=== PATIENT | male | born 1945 | race Caucasian/White ===

== ENCOUNTER 2016-10-13 03:18 | Emergency (ER) | payer OTHER, MEDICARE ==
[~2016-10-13] VITALS: Ht 167.6 cm; Wt 88.0 kg
[~2016-10-13 03:18] MED LIST: ALBUAER3 INH; APIX5TAB PO; CARD180C5 PO; FERR325T PO; FOLI1TAB4 PO; HYDR25TA5 PO; IPRA17I INH; LISI-519 PO; METF-382 PO; METH2.5T PO; METO25TA3 PO; OXYGENTANK NAS.CANULA; PRAV40TA2 PO; PRED20 PO; SYMB80AE INH; TERA1CAP3 PO; ZITH250T PO
[2016-10-13 03:20] VITALS: BP 117/54; PULSE 62; RESP 16; TEMP 98.3; O2SAT 96
[2016-10-13 04:26] VITALS: O2SAT 99
[2016-10-13] MEDS ORDERED: SODIUM CHLORIDE 0.9% FLUSH 5 ML FLUSH IVF PRN (04:30)
[2016-10-13 04:39] LABS: AUTOMATED NEUTROPHIL # 5.4 TH/MM3 (1.8-7.7); BASOPHIL % 0.3 % (0.0-2.0); EOSINOPHIL # 0.6 TH/MM3 (0-0.4); HEMATOCRIT 33.3 % (39.0-51.0); HEMO FLAGS DIFF FINAL; LYMPH % 22.5 % (9.0-44.0); MEAN CELL VOLUME 85.2 FL (80.0-100.0); MEAN CORPUSCULAR HEMOGLOBIN 27.5 PG (27.0-34.0); MEAN CORPUSCULAR HGB CONC 32.3 % (32.0-36.0); MONO % 9.5 % (0.0-8.0); NEUT % 60.7 % (16.0-70.0); PLATELET COUNT 321 TH/MM3 (150-450); RED BLOOD COUNT 3.91 MIL/MM3 (4.50-5.90); RED CELL DISTRIBUTION WIDTH 17.6 % (11.6-17.2); WHITE BLOOD COUNT 8.9 TH/MM3 (4.0-11.0)
--- NOTE | 2016-10-13 04:48 | PD ---
HPI Chief Complaint: Cardiac Complaint Time Seen by Provider: 04:04 Travel History International Travel<30 days: No Contact w/Intl Traveler<30days: No Traveled to known affect area: No History of Present Illness HPI This 71-year-old man presents to the emergency department after he was awoken from sleep with palpitations. He since it is a little bit of chest tightness and shortness of breath that is since resolved. His a history of recent diagnosis of A. fib in August of this year, and started diltiazem just a couple days ago. When they started diltiazem the also weaned down his metoprolol. He otherwise has been feeling generally well. He gets his care through the [facility], and has appointment with a marketing content coordinator in [place] no known coming up. No complaints now. He otherwise had been feeling generally well and healthy. History Past Medical History Narrative Medical A. fib COPD Rheumatoid arthritis Diabetes Anemia BPH Social History Alcohol Use: No Tobacco Use: Yes (1ppd (STATES QUIT TWO MONTHS AGO)) Allergies-Medications (Allergen,Severity, Reaction): Coded Allergies: No Known Allergies (Verified , 10/13/16) Reported Meds & Prescriptions Reported Meds & Active Scripts Active Atrovent HFA 12.9 GM Inh (Ipratropium [place]) 17 Mcg/Act Aer 2 Puff INH QID Prednisone 20 Mg Tab 40 Mg PO DAILY Take 2 pills daily for 3 Days, then 1 pill daily for 3 days, then 1/2 pill a day for 3 Days. Cardizem CD 24 HR (Diltiazem CD 24 HR) 180 Mg Caper 360 Mg PO DAILY Eliquis (Apixaban) 5 Mg Tab 5 Mg PO BID Proair Hfa 8.5 GM Inh (Albuterol Sulfate) 90 Mcg/Act Aer 2 Puff INH Q4HR PRN 108 mcg/actuation Reported Metoprolol Tartrate 50 Mg Tab 50 Mg PO BID Metformin (Metformin HCl) 1,000 Mg Tab 1,000 Mg PO BIDPC With meals Meloxicam 15 Mg Tab 15 Mg PO DAILY Lisinopril 10 Mg Tab 10 Mg PO DAILY Folate (Folic Acid) 1 Mg Tab 1 Mg PO DAILY Symbicort Inh (Budesonide/Formoterol Fumarate) Unknown Strength Aero 2 Puff INH Q12HR Terazosin (Terazosin HCl) 1 Mg Cap 1 Mg PO HS Pravastatin 40 Mg Tab 40 Mg PO DAILY Methotrexate 2.5 Mg Tab 2.5 Mg PO Q7D Hydrochlorothiazide 25 Mg Tab 25 Mg PO DAILY Ferrous Sulfate 325 Mg Tab 325 Mg PO DAILY Review of Systems Except as stated in HPI: all other systems reviewed are Neg Physical Exam Narrative GENERAL: Well-appearing 71-year-old man, no acute distress. SKIN: Warm and dry. HEAD: Atraumatic. Normocephalic. EYES: Pupils equal and round. No scleral icterus. No injection or drainage. ENT: No nasal bleeding or discharge. Mucous membranes pink and moist. NECK: Trachea midline. No JVD. CARDIOVASCULAR: Regular rate and rhythm. No murmur appreciated. RESPIRATORY: No accessory muscle use. Clear to auscultation. Breath sounds equal bilaterally. GASTROINTESTINAL: Abdomen soft, non-tender, nondistended. Hepatic and splenic margins not palpable. MUSCULOSKELETAL: No obvious deformities. No clubbing. No cyanosis. No edema. NEUROLOGICAL: Awake and alert. No obvious cranial nerve deficits. Motor grossly within normal limits. Normal speech. PSYCHIATRIC: Appropriate mood and affect; insight and judgment normal. Data Data Last Documented VS Vital Signs Date Time Temp Pulse Resp B/P Pulse Ox O2 Delivery O2 Flow Rate FiO2 10/13/16 04:26 99 Room Air 10/13/16 03:20 98.3 62 16 117/54 Orders Electrocardiogram (10/13/16 04:19) Complete Blood Count With Diff (10/13/16 04:19) Comprehensive Metabolic Panel (10/13/16 04:19) Magnesium (Mg) (10/13/16 04:19) Troponin I (10/13/16 04:19) Chest, Single Ap (10/13/16 04:19) Ecg Monitoring (10/13/16 04:19) Iv Access Insert/Monitor (10/13/16 04:19) Oximetry (10/13/16 04:19) Oxygen Administration (10/13/16 04:19) Sodium Chloride 0.9% Flush (Ns Flush) (10/13/16 04:30) Labs Laboratory Tests Test 10/13/16 04:32 White Blood Count 8.9 TH/MM3 Red Blood Count 3.91 MIL/MM3 Hemoglobin 10.8 GM/DL Hematocrit 33.3 % Mean Corpuscular Volume 85.2 FL Mean Corpuscular Hemoglobin 27.5 PG Mean Corpuscular Hemoglobin 32.3 % Concent Red Cell Distribution Width 17.6 % Platelet Count 321 TH/MM3 Mean Platelet Volume 8.3 FL Neutrophils (%) (Auto) 60.7 % Lymphocytes (%) (Auto) 22.5 % Monocytes (%) (Auto) 9.5 % Eosinophils (%) (Auto) 7.0 % Basophils (%) (Auto) 0.3 % Neutrophils # (Auto) 5.4 TH/MM3 Lymphocytes # (Auto) 2.0 TH/MM3 Monocytes # (Auto) 0.8 TH/MM3 Eosinophils # (Auto) 0.6 TH/MM3 Basophils # (Auto) 0.0 TH/MM3 CBC Comment DIFF FINAL Differential Comment Sodium Level 140 MEQ/L Potassium Level 4.6 MEQ/L Chloride Level 108 MEQ/L Carbon Dioxide Level 24.4 MEQ/L Anion Gap 8 MEQ/L Blood Urea Nitrogen 25 MG/DL Creatinine 1.52 MG/DL Estimat Glomerular Filtration 46 ML/MIN Rate Random Glucose 161 MG/DL Calcium Level 8.8 MG/DL Magnesium Level 1.7 MG/DL Total Bilirubin 0.3 MG/DL Aspartate Amino Transf 9 U/L (AST/SGOT) Alanine Aminotransferase 16 U/L (ALT/SGPT) Alkaline Phosphatase 77 U/L Troponin I LESS THAN 0.02 NG/ML Total Protein 7.2 GM/DL Albumin 3.2 GM/DL [facility] Medical Decision Making Medical Screen Exam Complete: Yes Emergency Medical Condition: Yes Interpretation(s) My review of EKG: A. fib, slow ventricular response of 49, normal axis, normal intervals, no acute ischemia. LABS: CBC remarkable for mild anemia. CMP remarkable for mildly elevated BUN/creatinine Troponin negative Differential Diagnosis A. fib with slow ventricular response, palpitations, arrhythmia, ACS, other Narrative Course Medical decision making Is a 71-year-old man who presents to the emergency department with palpitations. His a history of paroxysmal atrial tachycardia as well as A. fib RVR. He isn't slow ventricular response on the 40s. He recently started diltiazem and weaned down on his metoprolol. He may need to wean his metoprolol off. [facility] No complaints now. Diagnosis Primary Impression: A-fib Qualified Code: I48.1 - Persistent atrial fibrillation Additional Impression: Palpitations Additional Instructions: Hold metoprolol until follow up with your primary physician. Return to the emergency department for any worsening chest pain, trouble breathing, or any other new or worsening symptoms. Disposition: 01 DISCHARGE HOME Condition: Stable Terry Garcias MD Oct 13, 2016 04:48
[2016-10-13 04:53] LABS: ALT (GPT) 16 U/L (12-78); ANION GAP 8 MEQ/L (5-15); AST (GOT) 9 U/L (15-37); BICARBONATE 24.4 MEQ/L (21.0-32.0); BLOOD UREA NITROGEN 25 MG/DL (7-18); CHLORIDE 108 MEQ/L (98-107); GLOMERULAR FILTRATION RATE 46 ML/MIN (>89); MAGNESIUM 1.7 MG/DL (1.5-2.5); POTASSIUM 4.6 MEQ/L (3.5-5.1); SODIUM (NA) 140 MEQ/L (136-145)
--- NOTE | 2016-10-13 04:54 | RADRPT ---
EXAM DATE/TIME: 10/13/2016 04:40 [facility] COMPARISON: CHEST SINGLE AP, August 21, 2016, 13:36. INDICATIONS : Palpitations. MEDICAL HISTORY : Arthritis. Chronic obstructive pulmonary disease. SURGICAL HISTORY : None. ENCOUNTER: Initial ACUITY: 1 day PAIN SCORE: 0/10 LOCATION: Bilateral chest FINDINGS: No infiltrate, effusion or pneumothorax demonstrated. Mild cardiomegaly similar to before. Thoracic a lissy is tortuous and atherosclerotic. CONCLUSION: No acute cardiopulmonary disease demonstrated. Robbie Camarillo MD on October 13, 2016 at 4:52 Board Certified Radiologist. This report was verified electronically.
[2016-10-13 04:57] LABS: ALKALINE PHOSPHATASE 77 U/L (45-117); TOTAL BILIRUBIN ADULT 0.3 MG/DL (0.2-1.0)
[2016-10-13] MEDS ORDERED: METO50TA PO (05:02)
[2016-10-13] MEDS ORDERED: LISI10TA3 PO (05:02)
[2016-10-13] MEDS ORDERED: METF1000 PO (05:02)
[2016-10-13] MEDS ORDERED: MELO-1 PO (05:02)
--- NOTE | 2016-10-13 16:30 | EKG ---
Date Performed: 10/13/2016 Time Performed: 03:40:20 PTAGE: 71 years EKG: NARROW COMPLEX BRADYCARDIA ABNORMAL RHYTHM ECG Latter half of EKG does appear to show some organized atrial activity. The baseline is very flat, making atrial fibrillation less likely, particu larly given the prior atrial fibrillation has electrically active baseline. This is possibly a marked sinus bradycardia with ectopy and junctional escapes.This may be part of a Sick Sinus Syndome. Clini johann correlation is required. I would also recommend an EKG PREVIOUS TRACING : 08/22/2016 00.49 DOCTOR: Jonathan Alfaro Interpretating Date/Time 10/13/2016 16:29:20
== END 2016-10-13 06:29 | disposition home or self-care (01) ==
LOC: NEPE 03:18
DX: I48.91 Unspecified atrial fibrillation (principal); R00.2 Palpitations; J44.9 Chronic obstructive pulmonary disease, unspecified; M06.9 Rheumatoid arthritis, unspecified; E11.9 Type 2 diabetes mellitus without complications; R00.1 Bradycardia, unspecified
CPT/HCPCS: 71010; 80053; 83735; 84484; 85025; 93005

== ENCOUNTER 2016-10-28 00:59 | Emergency (ER) | payer OTHER, MEDICARE ==
[~2016-10-28] VITALS: Ht 167.6 cm; Wt 89.0 kg
[~2016-10-28 00:59] MED LIST changes: -LISI-519 PO; +LISI10TA3 PO; +MELO-1 PO; -METF-382 PO; +METF1000 PO; -METO25TA3 PO; +METO50TA PO; -OXYGENTANK NAS.CANULA; -ZITH250T PO
[2016-10-28 01:05] VITALS: BP 148/65; PULSE 106; RESP 20; TEMP 97.5; O2SAT 96
[2016-10-28] MEDS ORDERED: ACETAMINOPHEN/HYDROcodone 325 MG/5 MG TAB PO ONE (01:30)
[2016-10-28] MEDS ORDERED: SODIUM CHLORIDE 0.9% FLUSH 5 ML FLUSH IVF PRN (01:30)
[2016-10-28 01:31] VITALS: BP 132/60; PULSE 90; RESP 18; O2SAT 95
[2016-10-28 01:48] LABS: AUTOMATED NEUTROPHIL # 6.8 TH/MM3 (1.8-7.7); BASOPHIL % 0.3 % (0.0-2.0); EOSINOPHIL # 0.4 TH/MM3 (0-0.4); EOSINOPHIL % 4.1 % (0.0-4.0); HEMATOCRIT 32.2 % (39.0-51.0); HEMO FLAGS DIFF FINAL; LYMPH % 15.9 % (9.0-44.0); LYMPHOCYTE # 1.5 TH/MM3 (1.0-4.8); MEAN CELL VOLUME 81.9 FL (80.0-100.0); MONO % 7.3 % (0.0-8.0); NEUT % 72.4 % (16.0-70.0); PLATELET COUNT 370 TH/MM3 (150-450); RED BLOOD COUNT 3.93 MIL/MM3 (4.50-5.90); RED CELL DISTRIBUTION WIDTH 16.7 % (11.6-17.2); WHITE BLOOD COUNT 9.4 TH/MM3 (4.0-11.0)
--- NOTE | 2016-10-28 01:55 | RADRPT ---
EXAM DATE/TIME: 10/28/2016 01:36 [facility] COMPARISON: CHEST SINGLE AP, October 13, 2016, 4:40. INDICATIONS : Chest Pain MEDICAL HISTORY : Afib SURGICAL HISTORY : None. ENCOUNTER: Initial ACUITY: 1 day PAIN SCORE: 0/10 LOCATION: Bilateral chest FINDINGS: Cardiomegaly. Aortic calcification. No consolidation or effusion. CONCLUSION: No acute disease. Claudio Gaston MD on October 28, 2016 at 1:53 Board Certified Radiologist. This report was verified electronically.
[2016-10-28 01:57] LABS: ALT (GPT) 15 U/L (12-78); ANION GAP 7 MEQ/L (5-15); AST (GOT) 8 U/L (15-37); BICARBONATE 24.7 MEQ/L (21.0-32.0); BLOOD UREA NITROGEN 22 MG/DL (7-18); CHLORIDE 106 MEQ/L (98-107); GLOMERULAR FILTRATION RATE 65 ML/MIN (>89); POTASSIUM 4.4 MEQ/L (3.5-5.1); SODIUM (NA) 138 MEQ/L (136-145)
[2016-10-28 02:00] LABS: ALKALINE PHOSPHATASE 85 U/L (45-117); TOTAL BILIRUBIN ADULT 0.2 MG/DL (0.2-1.0)
[2016-10-28] MEDS ORDERED: PRED20 PO (02:27)
[2016-10-28] MEDS ORDERED: HYDR-3533 PO (02:27)
--- NOTE | 2016-10-28 02:29 | PD ---
HPI Chief Complaint: Edema Time Seen by Provider: 01:14 Travel History International Travel<30 days: No Contact w/Intl Traveler<30days: No Traveled to known affect area: No History of Present Illness HPI Patient is 71 years old. He has complaint of arthritis in the hands and knees. It prevents him from sleeping. He reports swelling of the hands and knees as well. Swelling has been present for 2 days. Pain severity is 7/10. It's constant. No recent illness or change in medicine. He takes methotrexate and meloxicam for rheumatoid arthritis. He's had no shortness of breath or dyspnea. appetite and urination normal. PFSH Past Medical History Hx Anticoagulant Therapy: Yes (PRADAXA) Arthritis: Yes Asthma: Yes Cardiovascular Problems: Yes (AFIB) Congestive Heart Failure: Yes COPD: Yes Cerebrovascular Accident: Yes (TIAx1) Coronary Artery Disease: No Diabetes: Yes (METFORMIN) Patient Takes Glucophage: Yes Genitourinary: Yes ( enlarged prostate) Hypertension: Yes Respiratory: Yes (COPD) Immunizations Current: Yes Tetanus Vaccination: < 5 Years Influenza Vaccination: Yes Past Surgical History Eye Surgery: Yes (BILAT CATARACT/LENS IMPLANT SURGERY) Other Surgery: Yes (CATARACTS AND LENS IMPLANTS) Social History Alcohol Use: No Tobacco Use: Yes (1ppd (STATES QUIT TWO MONTHS AGO)) Substance Use: No Allergies-Medications (Allergen,Severity, Reaction): Coded Allergies: No Known Allergies (Verified , 10/28/16) Reported Meds & Prescriptions Reported Meds & Active Scripts Active Cardizem CD 24 HR (Diltiazem CD 24 HR) 180 Mg Caper 360 Mg PO DAILY Proair Hfa 8.5 GM Inh (Albuterol Sulfate) 90 Mcg/Act Aer 2 Puff INH Q4HR PRN 108 mcg/actuation Reported Metformin (Metformin HCl) 1,000 Mg Tab 1,000 Mg PO BIDPC With meals Meloxicam 15 Mg Tab 15 Mg PO DAILY Folate (Folic Acid) 1 Mg Tab 1 Mg PO DAILY Symbicort Inh (Budesonide/Formoterol Fumarate) Unknown Strength Aero 2 Puff INH Q12HR Terazosin (Terazosin HCl) 1 Mg Cap 1 Mg PO HS Pravastatin 40 Mg Tab 40 Mg PO DAILY Methotrexate 2.5 Mg Tab 2.5 Mg PO Q7D Ferrous Sulfate 325 Mg Tab 325 Mg PO DAILY Review of Systems Except as stated in HPI: all other systems reviewed are Neg Physical Exam Narrative GENERAL: 71-year-old male pleasant well-nourished well-developed distress SKIN: Warm and dry. HEAD: Atraumatic. Normocephalic. EYES: Pupils equal and round. No scleral icterus. No injection or drainage. ENT: No nasal bleeding or discharge. Mucous membranes pink and moist. NECK: Trachea midline. No JVD. CARDIOVASCULAR: Regular rate and rhythm. No murmur appreciated. RESPIRATORY: No accessory muscle use. Clear to auscultation. Breath sounds equal bilaterally. GASTROINTESTINAL: Abdomen soft, non-tender, nondistended. Hepatic and splenic margins not palpable. MUSCULOSKELETAL: No obvious deformities. No clubbing. Pitting edema about the hands and wrists as well as the bilateral lower extremities from the knees distally. Edema is 2+. No asymmetry erythema or induration to suggest PE. NEUROLOGICAL: Awake and alert. No obvious cranial nerve deficits. Motor grossly within normal limits. Normal speech. PSYCHIATRIC: Appropriate mood and affect; insight and judgment normal. Data Data Last Documented VS Vital Signs Date Time Temp Pulse Resp B/P Pulse Ox O2 Delivery O2 Flow Rate FiO2 10/28/16 01:31 90 18 132/60 95 Room Air 10/28/16 01:05 97.5 Orders Complete Blood Count With Diff (10/28/16 01:30) Comprehensive Metabolic Panel (10/28/16 01:30) Chest, Single Ap (10/28/16 01:30) Ecg Monitoring (10/28/16 01:30) Iv Access Insert/Monitor (10/28/16 01:30) Oximetry (10/28/16 01:30) Oxygen Administration (10/28/16 01:30) Sodium Chloride 0.9% Flush (Ns Flush) (10/28/16 01:30) Acetamin-Hydrocod 325-5 Mg ([place] 5-325 (10/28/16 01:30) B-Type Natriuretic Peptide (10/28/16 01:30) Labs Laboratory Tests Test 10/28/16 01:30 White Blood Count 9.4 TH/MM3 Red Blood Count 3.93 MIL/MM3 Hemoglobin 10.6 GM/DL Hematocrit 32.2 % Mean Corpuscular Volume 81.9 FL Mean Corpuscular Hemoglobin 27.0 PG Mean Corpuscular Hemoglobin 33.0 % Concent Red Cell Distribution Width 16.7 % Platelet Count 370 TH/MM3 Mean Platelet Volume 7.5 FL Neutrophils (%) (Auto) 72.4 % Lymphocytes (%) (Auto) 15.9 % Monocytes (%) (Auto) 7.3 % Eosinophils (%) (Auto) 4.1 % Basophils (%) (Auto) 0.3 % Neutrophils # (Auto) 6.8 TH/MM3 Lymphocytes # (Auto) 1.5 TH/MM3 Monocytes # (Auto) 0.7 TH/MM3 Eosinophils # (Auto) 0.4 TH/MM3 Basophils # (Auto) 0.0 TH/MM3 CBC Comment DIFF FINAL Differential Comment Sodium Level 138 MEQ/L Potassium Level 4.4 MEQ/L Chloride Level 106 MEQ/L Carbon Dioxide Level 24.7 MEQ/L Anion Gap 7 MEQ/L Blood Urea Nitrogen 22 MG/DL Creatinine 1.11 MG/DL Estimat Glomerular Filtration 65 ML/MIN Rate Random Glucose 163 MG/DL Calcium Level 9.0 MG/DL Total Bilirubin 0.2 MG/DL Aspartate Amino Transf 8 U/L (AST/SGOT) Alanine Aminotransferase 15 U/L (ALT/SGPT) Alkaline Phosphatase 85 U/L B-Type Natriuretic Peptide 52 PG/ML Total Protein 7.4 GM/DL Albumin 3.2 GM/DL MDM Medical Decision Making Medical Screen Exam Complete: Yes Emergency Medical Condition: Yes Medical Record Reviewed: Yes Differential Diagnosis Rheumatoid flare, hypoalbuminemia, electrolyte imbalance, renal failure, anemia Narrative Course CBC & BMP Diagram 10/28/16 01:30 BNP 52 Albumin 3.2 Patient's presentation is considered to be mostly keeping with a flare of rheumatoid arthritis. We'll provide a dose of Solu-Medrol here and control his pain here. Lortab and prednisone prescription for home. Follow-up with primary care provider. Return precautions discussed. Diagnosis Primary Impression: Rheumatoid arthritis flare Referrals: [facility] [place] 2 days Additional Instructions: You have a choice when it comes to health care, and we are glad that you chose [facility]. Hopefully, we have met your expectations on today's visit. You are welcome to return to [facility] at any time, as we are committed to meeting the health care needs of our community. Med/Other Pt SpecificInfo: Prescription(s) given Scripts Hydrocodone-Acetaminophen (Lortab)5-325 Mg Tab1-2 Tab PO Q6H PRN (PAIN SCALE 6 TO 10) #20 TAB Ref 0 Prov:Richie Díaz MD 10/28/16 Prednisone 20 Mg Tab40 Mg PO DAILY 4 Days Ref 0 Take 40 mg (2 tablets) daily for 5 days Prov:Richie Díaz MD 10/28/16 Disposition: 01 DISCHARGE HOME Condition: Stable Richie Díaz MD Oct 28, 2016 02:29
[2016-10-28] MEDS ORDERED: methylPREDNISolone SOD SUCC 125 MG/2 ML VIAL IV PUSH ONE (02:30)
== END 2016-10-28 02:47 | disposition home or self-care (01) ==
LOC: NEPC 00:59
DX: M06.89 Other specified rheumatoid arthritis, multiple sites (principal); E11.9 Type 2 diabetes mellitus without complications; I10 Essential (primary) hypertension; Z79.01 Long term (current) use of anticoagulants; Z79.84 Long term (current) use of oral hypoglycemic drugs; Z87.39 Personal history of other diseases of the musculoskeletal system and connective tissue; Z87.09 Personal history of other diseases of the respiratory system; Z86.79 Personal history of other diseases of the circulatory system; Z86.73 Personal history of transient ischemic attack (TIA), and cerebral infarction without residual deficits; Z87.438 Personal history of other diseases of male genital organs; Z87.891 Personal history of nicotine dependence
CPT/HCPCS: 71010; 80053; 83880; 85025; 96374; 99283; J2930

== ENCOUNTER 2016-11-05 19:18 | Emergency (ER) | payer OTHER, MEDICARE ==
[~2016-11-05] VITALS: Ht 167.6 cm; Wt 87.7 kg
[~2016-11-05 19:18] MED LIST changes: -APIX5TAB PO; +HYDR-3533 PO; -HYDR25TA5 PO; -IPRA17I INH; -LISI10TA3 PO; -METO50TA PO
[2016-11-05 19:21] VITALS: BP 177/79; PULSE 82; RESP 16; TEMP 97.8; O2SAT 97
[2016-11-05] MEDS ORDERED: ACETAMINOPHEN 325 MG TAB PO ONE (23:00)
--- NOTE | 2016-11-05 23:06 | PD ---
HPI Chief Complaint: Headache Time Seen by Provider: 22:40 Travel History International Travel<30 days: No Contact w/Intl Traveler<30days: No Traveled to known affect area: No History of Present Illness HPI The patient is a 71 year old male who presents to the [facility] emergency department with a history of bitemporal headache that began approximately 30-45 minutes after taking his Pradaxa at 1 PM today. He reports that the headache gradually reached its peak. He reports that he has not taken anything for the pain, however his headache has begun to improve since arriving in the emergency department. He denies having any neck pain. He denies having any nosebleeds, blood in his stool or black or tarry stools, or hematuria. The patient reports that he was concerned that there may be a problem and his hand related to the Pradaxa because he was told that if he had any new symptoms on the medication he should be evaluated acutely either by his primary care physician or in the emergency department. The patient is followed by the [facility] for his primary care. The patient denies any recent fevers, cough, congestion, chest pain, shortness of breath, abdominal pain, vomiting, diarrhea, urinary symptoms, or neurologic symptoms. PFSH Past Medical History Narrative Medical The patient's past medical history is significant for COPD, rheumatoid arthritis , hypertension, diabetes mellitus, anemia, benign prostatic hypertrophy, atrial fibrillation Hx Anticoagulant Therapy: Yes (PRADAXA) Arthritis: Yes Asthma: Yes Cardiovascular Problems: Yes Congestive Heart Failure: Yes COPD: Yes Cerebrovascular Accident: Yes (TIAx1) Coronary Artery Disease: No Diabetes: Yes Genitourinary: Yes ( enlarged prostate) Hypertension: Yes Respiratory: Yes (COPD) Immunizations Current: Yes Past Surgical History Narrative Surgical The patient's past surgical history is significant for bilateral cataract surgery. Eye Surgery: Yes (BILAT CATARACT/LENS IMPLANT SURGERY) Other Surgery: Yes (CATARACTS AND LENS IMPLANTS) Social History Alcohol Use: No Tobacco Use: Yes (1ppd (STATES QUIT TWO MONTHS AGO)) Substance Use: No Allergies-Medications (Allergen,Severity, Reaction): Coded Allergies: No Known Allergies (Verified , 11/05/16) Reported Meds & Prescriptions Reported Meds & Active Scripts Active Lisinopril 10 Mg Tab 10 Mg PO DAILY Lortab (Hydrocodone-Acetaminophen) 5-325 Mg Tab 1-2 Tab PO Q6H PRN Prednisone 20 Mg Tab 40 Mg PO DAILY 4 Days Take 40 mg (2 tablets) daily for 5 days Cardizem CD 24 HR (Diltiazem CD 24 HR) 180 Mg Caper 360 Mg PO DAILY Proair Hfa 8.5 GM Inh (Albuterol Sulfate) 90 Mcg/Act Aer 2 Puff INH Q4HR PRN 108 mcg/actuation Reported Metformin (Metformin HCl) 1,000 Mg Tab 1,000 Mg PO BIDPC With meals Meloxicam 15 Mg Tab 15 Mg PO DAILY Folate (Folic Acid) 1 Mg Tab 1 Mg PO DAILY Symbicort Inh (Budesonide/Formoterol Fumarate) Unknown Strength Aero 2 Puff INH Q12HR Terazosin (Terazosin HCl) 1 Mg Cap 1 Mg PO HS Pravastatin 40 Mg Tab 40 Mg PO DAILY Methotrexate 2.5 Mg Tab 2.5 Mg PO Q7D Ferrous Sulfate 325 Mg Tab 325 Mg PO DAILY Review of Systems Except as stated in HPI: all other systems reviewed are Neg General / Constitutional: No: Fever Eyes: No: Visual changes HENT: Positive: Headaches, No: Rhinorrhea, Congestion, Neck Stiffness, Neck Pain Cardiovascular: No: Chest Pain or Discomfort, Dyspnea on exertion Respiratory: No: Cough, Shortness of Breath Gastrointestinal: No: Nausea, Vomiting, Diarrhea, Abdominal Pain, Hematemesis, Hematochezia, Changes in Bowel Habits, Loss of Appetite Genitourinary: No: Dysuria Musculoskeletal: No: Pain Skin: No Rash Neurologic: Positive: Headache, No: Weakness, Focal Abnormalities, Coordination Problem, Change in Mentation, Slurred Speech, Sensory Disturbance Psychiatric: No: Depression Endocrine: No: Polydipsia Hematologic/Lymphatic: No: Easy Bruising Physical Exam Narrative General: The patient is a well-developed well-nourished male in no acute distress. Head and Neck exam: Head is normocephalic atraumatic. Eyes: EOMI, pupils are equal round and reactive to light. Nose: Midline septum with pink mucous membranes Mouth: Dentition unremarkable. Moist mucus membranes. Posterior oropharynx is not erythematous. No tonsillar hypertrophy. Uvula midline. Airway patent. Neck: No palpable lymphadenopathy. No nuchal rigidity. No thyromegaly. Cardiovascular: Regular rate and rhythm without murmurs, gallops, or rubs. Lungs: Clear to auscultation bilaterally. No wheezes, rhonchi, or rales. Abdomen: Soft, without tenderness to palpation in all 4 quadrants of the abdomen. No guarding, rebound, or rigidity. Normal bowel sounds are audible. Extremities: No clubbing, cyanosis, or edema. No calf tenderness on palpation. Negative Homans sign. No palpable cords. Back: No spinous process tenderness to palpation. No costovertebral angle tenderness to palpation. Neurologic Exam: Cranial nerves 2-12 were intact on exam. Strength is 5/5 in all 4 extremities. No sensory deficits noted. Skin Exam: No rash noted. Intact skin that is warm and dry. Data Data Last Documented VS Vital Signs Date Time Temp Pulse Resp B/P Pulse Ox O2 Delivery O2 Flow Rate FiO2 11/06/16 00:56 70 16 144/65 97 Room Air 11/05/16 19:21 97.8 Orders Electrocardiogram (11/05/16 22:55) Complete Blood Count With Diff (11/05/16 22:55) Basic Metabolic Panel (Bmp) (11/05/16 22:55) Prothrombin Time / Inr (Pt) (11/05/16 22:55) Act Partial Throm Time (Ptt) (11/05/16 22:55) Urinalysis - C+S If Indicated (11/05/16 22:55) Ct Brain W/O Iv Contrast(Rout) (11/05/16 22:55) Iv Access Insert/Monitor (11/05/16 22:55) Ecg Monitoring (11/05/16 22:55) Oximetry (11/05/16 22:55) Acetaminophen (Tylenol) (11/05/16 23:00) Labs Laboratory Tests Test 11/05/16 23:25 White Blood Count 9.9 TH/MM3 Red Blood Count 3.76 MIL/MM3 Hemoglobin 10.0 GM/DL Hematocrit 30.9 % Mean Corpuscular Volume 82.3 FL Mean Corpuscular Hemoglobin 26.7 PG Mean Corpuscular Hemoglobin 32.4 % Concent Red Cell Distribution Width 16.6 % Platelet Count 353 TH/MM3 Mean Platelet Volume 7.4 FL Neutrophils (%) (Auto) 74.9 % Lymphocytes (%) (Auto) 14.8 % Monocytes (%) (Auto) 7.5 % Eosinophils (%) (Auto) 2.6 % Basophils (%) (Auto) 0.2 % Neutrophils # (Auto) 7.4 TH/MM3 Lymphocytes # (Auto) 1.5 TH/MM3 Monocytes # (Auto) 0.7 TH/MM3 Eosinophils # (Auto) 0.3 TH/MM3 Basophils # (Auto) 0.0 TH/MM3 CBC Comment DIFF FINAL Differential Comment Urine Color YELLOW Urine Turbidity CLEAR Urine pH 5.5 Urine Specific Benson 1.020 Urine Protein 30 mg/dL Urine Glucose (UA) NEG mg/dL Urine Ketones NEG mg/dL Urine Occult Blood NEG Urine Nitrite NEG Urine Bilirubin NEG Urine Urobilinogen LESS THAN 2.0 MG/DL Urine Leukocyte Esterase NEG Urine RBC LESS THAN 1 /hpf Urine WBC 1 /hpf Urine Mucus FEW /lpf Microscopic Urinalysis Comment CULT NOT INDICATED Prothrombin Time 11.4 SEC Prothromb Time International 1.0 RATIO Ratio Activated Partial 43.9 SEC Thromboplast Time Sodium Level 136 MEQ/L Potassium Level 4.4 MEQ/L Chloride Level 102 MEQ/L Carbon Dioxide Level 27.1 MEQ/L Anion Gap 7 MEQ/L Blood Urea Nitrogen 16 MG/DL Creatinine 0.95 MG/DL Estimat Glomerular Filtration 78 ML/MIN Rate Random Glucose 119 MG/DL Calcium Level 8.7 MG/DL MDM Medical Decision Making Medical Screen Exam Complete: Yes Emergency Medical Condition: Yes Medical Record Reviewed: Yes Differential Diagnosis Intracranial hemorrhage, versus tension headache, versus elevated blood pressure related headache, versus migraine headache, versus sinus related headache, versus viral syndrome Narrative Course During the course of the patients emergency department visit, the patients history, examination, and differential diagnosis were reviewed with the patient. The patient had IV access obtained and blood work sent for analysis. The patient was placed on a monitor technician with oximetry and blood pressure monitoring. The patient's initial blood pressure was 177/79. This could be contributing to the patient's headache, versus the headache could be causing his blood pressure to be slightly elevated. This will be repeated now that he is back in an emergency department bed. A CT scan of the brain was ordered. An EKG was ordered. The patient reports that his headache has already started to improve this evening. The patient will be given Tylenol 650 by mouth 1. The patient's EKG shows a sinus rhythm with a first-degree AV block, heart rate of 72, no acute ST segment elevation or depression, T waves are inverted in V1. The patients laboratory studies were reviewed and remarkable for white count of 9.9, hemoglobin 10 compared to previously with a stable hemoglobin that ranges from 9.7 recently to 10.8. Platelets are 353, neutrophils 74.9, basic metabolic profile is remarkable for a glucose of 119, urinalysis shows 30 protein otherwise unremarkable. PT 11.4, INR 1.0, PTT 43.9. Radiology studies were reviewed and remarkable for a CT scan of the brain that shows no acute abnormality. Multiple prior chronic lacunar infarcts in the basal ganglia. The patient was reexamined and reported that his headache had resolved. The patient's blood pressure was repeated and continued to be elevated in the 190s systolic. I reviewed the patient's record shows that the patient's heart rate was low during her recent emergency department visit. He reports that his beta andres was discontinued. He reports that he was started on a new blood pressure medication that starts with a B, however he cannot recall the full name of the medicine. I am concerned of the patient's blood pressure may be contributing to his headache, therefore given his history of diabetes, an LYNDSAY inhibitor will also be added to his regimen. The patient was given a prescription for Vasotec at discharge. The patient is instructed to call back to the emergency department to verify that he is not already on an LYNDSAY inhibitor once he is home with his medicine and the medication regimen can be reviewed regarding his new medicine. The patient is resting comfortably and feels better, is alert and in no distress. The patients results and examination findings were discussed with the patient. The repeat examination is unremarkable and benign. The history, exam, diagnostic testing, and current condition do not suggest any significant pathology to warrant further testing, continued ED treatment, admission, or surgical evaluation at this point. The vital signs have been stable. The patient does not have uncontrollable pain, intractable vomiting, or other significant symptoms. The patient's condition is stable and appropriate for discharge. The patient will pursue further outpatient evaluation with a primary care physician or other designated or consulting physician as indicated in the discharge instructions. The patient expressed understanding and was agreeable with this plan. Diagnosis Primary Impression: Headache Qualified Code: R51 - Acute nonintractable headache, unspecified headache type Additional Impression: Elevated blood pressure reading with diagnosis of hypertension Referrals: Primary Care Physician Patient Instructions: Acute Headache (ED), General Instructions Additional Instructions: The patient is instructed to take Tylenol/acetaminophen as needed for headache or other body aches as written on the bottle. I reviewed the patient's record shows that the patient's heart rate was low during her recent emergency department visit. He reports that his beta andres was discontinued. He reports that he was started on a new blood pressure medication that starts with a B, however he cannot recall the full name of the medicine. I am concerned of the patient's blood pressure may be contributing to his headache, therefore given his history of diabetes, an LYNDSAY inhibitor will also be added to his regimen. The patient was given a prescription for Vasotec at discharge. The patient is instructed to call back to the emergency department to verify that he is not already on an LYNDSAY inhibitor once he is home with his medicine and the medication regimen can be reviewed regarding his new medicine. Med/Other Pt SpecificInfo: Prescription(s) given Scripts Lisinopril 10 Mg Tab10 Mg PO DAILY #30 TAB Ref 0 Prov:Nena Pappas MD 11/06/16 Disposition: 01 DISCHARGE HOME Condition: Stable Nena Pappas MD Nov 05, 2016 23:06
[2016-11-05 23:41] LABS: AUTOMATED NEUTROPHIL # 7.4 TH/MM3 (1.8-7.7); BASOPHIL % 0.2 % (0.0-2.0); EOSINOPHIL # 0.3 TH/MM3 (0-0.4); EOSINOPHIL % 2.6 % (0.0-4.0); HEMATOCRIT 30.9 % (39.0-51.0); HEMO FLAGS DIFF FINAL; LYMPH % 14.8 % (9.0-44.0); LYMPHOCYTE # 1.5 TH/MM3 (1.0-4.8); MEAN CELL VOLUME 82.3 FL (80.0-100.0); MEAN CORPUSCULAR HEMOGLOBIN 26.7 PG (27.0-34.0); MEAN CORPUSCULAR HGB CONC 32.4 % (32.0-36.0); MONO % 7.5 % (0.0-8.0); NEUT % 74.9 % (16.0-70.0); PLATELET COUNT 353 TH/MM3 (150-450); RED BLOOD COUNT 3.76 MIL/MM3 (4.50-5.90); RED CELL DISTRIBUTION WIDTH 16.6 % (11.6-17.2); WHITE BLOOD COUNT 9.9 TH/MM3 (4.0-11.0)
[2016-11-05 23:54] LABS: BLOOD, URINE NEG (NEG); COMMENT (UR) CULT NOT INDICATED; CULTURE IF INDICATED CULT NOT INDICATED; GLUCOSE,URINE NEG (NEG); KETONE, URINE NEG (NEG); MUCUS URINE FEW /lpf (OCC); NITRITE,URINE NEG (NEG); PH, URINE 5.5 (5.0-8.5); URINE COLOR YELLOW (YELLW/STRAW)
[2016-11-06 00:02] LABS: BICARBONATE 27.1 MEQ/L (21.0-32.0); POTASSIUM 4.4 MEQ/L (3.5-5.1)
--- NOTE | 2016-11-06 00:25 | RADRPT ---
EXAM DATE/TIME: 11/06/2016 00:03 [facility] COMPARISON: CT BRAIN W/O CONTRAST, April 26, 2016, 7:59. INDICATIONS : Headaches. RADIATION DOSE: 41.87 CTDIvol (mGy) MEDICAL HISTORY : Cardiovascular disease. Cerebrovascular disease. Hypertension.COPD Diabetes SURGICAL HISTORY : None. ENCOUNTER: Initial ACUITY: 1 day PAIN SCALE: 7/10 LOCATION: Bilateral cranial TECHNIQUE: Multiple contiguous axial images were obtained of the head. Using automated exposure control and adj ustment of the mA and/or kV according to patient size, radiation dose was kept as low as reasonably a chievable to obtain optimal diagnostic quality images. FINDINGS: CEREBRUM: The ventricles are normal for age. Multiple old bilateral lacunar type infarcts are seen in the basa l ganglia. No evidence of midline shift, mass lesion, hemorrhage or acute infarction. No extra-axial fluid collections are seen. POSTERIOR FOSSA: The cerebellum and brainstem are intact. The 4th ventricle is midline. The cerebellopontine angle i s unremarkable. EXTRACRANIAL: The visualized portion of the orbits is intact. SKULL: The calvaria is intact. No evidence of skull fracture. CONCLUSION: 1. Chronic changes with bilateral basal ganglia lacunar type infarcts. 2. No acute intracranial process. Anibal Han MD on November 06, 2016 at 0:21 Board Certified Radiologist. This report was verified electronically.
[2016-11-06] MEDS ORDERED: LISI10TA3 PO (00:45)
[2016-11-06 00:56] VITALS: BP 144/65; PULSE 70; RESP 16; O2SAT 97
[2016-11-06 01:41] LABS: APTT (PATIENT) 43.9 SEC (24.3-30.1); PROTHROMBIN TIME - PATIENT 11.4 SEC (9.8-11.6)
--- NOTE | 2016-11-06 10:29 | EKG ---
Date Performed: 11/05/2016 Time Performed: 23:49:12 PTAGE: 71 years EKG: Sinus rhythm WITH FIRST DEGREE AV BLOCK ABNORMAL ECG PREVIOUS TRACING : 11/05/2016 23.48 Compared to previous tracing, heart rate has increased. DOCTOR: Lacho Talavera Interpretating Date/Time 11/06/2016 10:28:30
== END 2016-11-06 02:20 | disposition home or self-care (01) ==
LOC: NEPE 19:18
DX: R51 Headache (principal); I10 Essential (primary) hypertension; I50.9 Heart failure, unspecified; E11.9 Type 2 diabetes mellitus without complications; J44.9 Chronic obstructive pulmonary disease, unspecified; J45.909 Unspecified asthma, uncomplicated; Z79.84 Long term (current) use of oral hypoglycemic drugs; Z87.891 Personal history of nicotine dependence
CPT/HCPCS: 70450; 80048; 81001; 85025; 85610; 85730; 93005

== ENCOUNTER 2016-11-23 04:42 | Observation (INO) | payer MEDICARE, OTHER ==
[~2016-11-23] VITALS: Ht 167.6 cm; Wt 87.0 kg
[~2016-11-23 04:42] MED LIST changes: +LISI10TA3 PO
[2016-11-23 04:45] VITALS: BP 134/62; PULSE 51; RESP 16; TEMP 97.7; O2SAT 96
[2016-11-23 05:45] LABS: AUTOMATED NEUTROPHIL # 7.3 TH/MM3 (1.8-7.7); BASOPHIL % 0.1 % (0.0-2.0); EOSINOPHIL # 0.3 TH/MM3 (0-0.4); EOSINOPHIL % 2.6 % (0.0-4.0); HEMATOCRIT 33.2 % (39.0-51.0); HEMO FLAGS DIFF FINAL; LYMPH % 13.2 % (9.0-44.0); LYMPHOCYTE # 1.3 TH/MM3 (1.0-4.8); MEAN CELL VOLUME 81.2 FL (80.0-100.0); MEAN CORPUSCULAR HEMOGLOBIN 26.8 PG (27.0-34.0); NEUT % 75.1 % (16.0-70.0); PLATELET COUNT 460 TH/MM3 (150-450); RED BLOOD COUNT 4.09 MIL/MM3 (4.50-5.90); RED CELL DISTRIBUTION WIDTH 16.9 % (11.6-17.2); WHITE BLOOD COUNT 9.7 TH/MM3 (4.0-11.0)
[2016-11-23 06:00] LABS: APTT (PATIENT) 30.8 SEC (24.3-30.1); PROTHROMBIN TIME - PATIENT 10.6 SEC (9.8-11.6)
[2016-11-23 06:09] LABS: ANION GAP 9 MEQ/L (5-15); AST (GOT) 7 U/L (15-37); BICARBONATE 24.1 MEQ/L (21.0-32.0); BLOOD UREA NITROGEN 19 MG/DL (7-18); CHLORIDE 106 MEQ/L (98-107); GLOMERULAR FILTRATION RATE 59 ML/MIN (>89); POTASSIUM 4.8 MEQ/L (3.5-5.1); SODIUM (NA) 139 MEQ/L (136-145)
--- NOTE | 2016-11-23 06:09 | RADRPT ---
EXAM DATE/TIME: 11/23/2016 05:56 [facility] COMPARISON: CHEST SINGLE AP, October 28, 2016, 1:36. INDICATIONS : Palpitations. Elevated BP. MEDICAL HISTORY : A-fib. SURGICAL HISTORY : None. ENCOUNTER: Initial ACUITY: 1 day PAIN SCORE: 1/10 LOCATION: chest FINDINGS: A single view of the chest demonstrates the lungs to be symmetrically aerated without evidence of mas s, infiltrate or effusion. The cardiomediastinal contours are unremarkable. Osseous structures are intact. CONCLUSION: No acute disease. Kevin Cleary Jr., MD on November 23, 2016 at 6:07 Board Certified Radiologist. This report was verified electronically.
[2016-11-23 06:12] LABS: LDH SERUM 175 U/L (87-241)
[2016-11-23 06:13] LABS: CREATINE KINASE 48 U/L (39-308)
[2016-11-23] MEDS ORDERED: SODIUM CHLORIDE 0.9% FLUSH 10 ML FLUSH IV FLUSH PRN (06:45)
[2016-11-23] MEDS ORDERED: NALOXONE HCL 0.4 MG/ML AMP IV PRN (06:45)
--- NOTE | 2016-11-23 06:53 | PD ---
HPI Chief Complaint: Cardiac Complaint Time Seen by Provider: 06:38 Travel History International Travel<30 days: No Contact w/Intl Traveler<30days: No Traveled to known affect area: No History of Present Illness HPI The patient is a 71-year-old male that complains of palpitations and dizziness this morning. He woke this this morning because he felt flip-flops sensation in his heart. He thought his heart was racing. He denies any chest tightness, chest fullness, diaphoresis but does have slight dizziness on occasion and occasional shortness of breath. He has been on diltiazem CD 24 hour 360 mg. For about 2-3 months. He denies any fever. PFSH Past Medical History Hx Anticoagulant Therapy: Yes (PRADAXA) Arthritis: Yes Asthma: Yes Cardiovascular Problems: Yes (AFIB) Congestive Heart Failure: Yes COPD: Yes Cerebrovascular Accident: Yes (TIAx1) Coronary Artery Disease: No Diabetes: Yes (METFORMIN) Patient Takes Glucophage: Yes Genitourinary: Yes ( enlarged prostate) Hypertension: Yes Respiratory: Yes (COPD) Immunizations Current: Yes Influenza Vaccination: Yes Past Surgical History Eye Surgery: Yes (BILAT CATARACT/LENS IMPLANT SURGERY) Other Surgery: Yes (CATARACTS AND LENS IMPLANTS) Social History Alcohol Use: No Tobacco Use: No Substance Use: No Allergies-Medications (Allergen,Severity, Reaction): Coded Allergies: No Known Allergies (Verified , 11/23/16) Reported Meds & Prescriptions Reported Meds & Active Scripts Active Lisinopril 10 Mg Tab 10 Mg PO DAILY Lortab (Hydrocodone-Acetaminophen) 5-325 Mg Tab 1-2 Tab PO Q6H PRN Prednisone 20 Mg Tab 40 Mg PO DAILY 4 Days Take 40 mg (2 tablets) daily for 5 days Cardizem CD 24 HR (Diltiazem CD 24 HR) 180 Mg Caper 360 Mg PO DAILY Proair Hfa 8.5 GM Inh (Albuterol Sulfate) 90 Mcg/Act Aer 2 Puff INH Q4HR PRN 108 mcg/actuation Reported Metformin (Metformin HCl) 1,000 Mg Tab 1,000 Mg PO BIDPC With meals Meloxicam 15 Mg Tab 15 Mg PO DAILY Folate (Folic Acid) 1 Mg Tab 1 Mg PO DAILY Symbicort Inh (Budesonide/Formoterol Fumarate) Unknown Strength Aero 2 Puff INH Q12HR Terazosin (Terazosin HCl) 1 Mg Cap 1 Mg PO HS Pravastatin 40 Mg Tab 40 Mg PO DAILY Methotrexate 2.5 Mg Tab 2.5 Mg PO Q7D Ferrous Sulfate 325 Mg Tab 325 Mg PO DAILY Review of Systems Except as stated in HPI: all other systems reviewed are Neg Physical Exam Narrative GENERAL: The patient is alert, oriented 3 in no apparent distress. His vital signs are normal except for heart rate of 51. When I examine the patient is heart rate is in the low 40s. SKIN: Warm and dry. HEAD: Atraumatic. Normocephalic. EYES: Pupils equal and round. No scleral icterus. No injection or drainage. ENT: No nasal bleeding or discharge. Mucous membranes pink and moist. NECK: Trachea midline. No JVD. CARDIOVASCULAR: Regular rate and rhythm. No murmur appreciated. RESPIRATORY: No accessory muscle use. Clear to auscultation. Breath sounds equal bilaterally. GASTROINTESTINAL: Abdomen soft, non-tender, nondistended. Hepatic and splenic margins not palpable. MUSCULOSKELETAL: No obvious deformities. No clubbing. No cyanosis. No edema. NEUROLOGICAL: Awake and alert. No obvious cranial nerve deficits. Motor grossly within normal limits. Normal speech. PSYCHIATRIC: Appropriate mood and affect; insight and judgment normal. Data Data Last Documented VS Vital Signs Date Time Temp Pulse Resp B/P Pulse Ox O2 Delivery O2 Flow Rate FiO2 11/23/16 04:45 97.7 51 16 134/62 96 Room Air Orders Electrocardiogram (11/23/16 ) Complete Blood Count With Diff (11/23/16 05:21) Basic Metabolic Panel (Bmp) (11/23/16 05:21) Ldh Serum (11/23/16 05:21) Ast (Sgot) (11/23/16 05:21) Creatine Kinase (Cpk) (11/23/16 05:21) Troponin I (11/23/16 05:21) Prothrombin Time / Inr (Pt) (11/23/16 05:21) Act Partial Throm Time (Ptt) (11/23/16 05:21) Chest, Single Ap (11/23/16 ) Labs Laboratory Tests Test 11/23/16 05:30 White Blood Count 9.7 TH/MM3 Red Blood Count 4.09 MIL/MM3 Hemoglobin 11.0 GM/DL Hematocrit 33.2 % Mean Corpuscular Volume 81.2 FL Mean Corpuscular Hemoglobin 26.8 PG Mean Corpuscular Hemoglobin 33.0 % Concent Red Cell Distribution Width 16.9 % Platelet Count 460 TH/MM3 Mean Platelet Volume 7.7 FL Neutrophils (%) (Auto) 75.1 % Lymphocytes (%) (Auto) 13.2 % Monocytes (%) (Auto) 9.0 % Eosinophils (%) (Auto) 2.6 % Basophils (%) (Auto) 0.1 % Neutrophils # (Auto) 7.3 TH/MM3 Lymphocytes # (Auto) 1.3 TH/MM3 Monocytes # (Auto) 0.9 TH/MM3 Eosinophils # (Auto) 0.3 TH/MM3 Basophils # (Auto) 0.0 TH/MM3 CBC Comment DIFF FINAL Differential Comment Prothrombin Time 10.6 SEC Prothromb Time International 1.0 RATIO Ratio Activated Partial 30.8 SEC Thromboplast Time Sodium Level 139 MEQ/L Potassium Level 4.8 MEQ/L Chloride Level 106 MEQ/L Carbon Dioxide Level 24.1 MEQ/L Anion Gap 9 MEQ/L Blood Urea Nitrogen 19 MG/DL Creatinine 1.22 MG/DL Estimat Glomerular Filtration 59 ML/MIN Rate Random Glucose 143 MG/DL Calcium Level 9.0 MG/DL Aspartate Amino Transf 7 U/L (AST/SGOT) Lactate Dehydrogenase 175 U/L Total Creatine Kinase 48 U/L Troponin I LESS THAN 0.02 NG/ML MDM Medical Decision Making Medical Screen Exam Complete: Yes Emergency Medical Condition: Yes Medical Record Reviewed: Yes Interpretation(s) The basic metabolic profile shows a BUN of 19, GFR 59 and glucose 143 but is otherwise unremarkable. The cardiac enzymes are normal. The coagulation profile shows an APTT of 30.8 but is otherwise normal. The CBC shows a hemoglobin of 11.0, hematocrit of 33.0 with platelet count of 40 and 60,000 but is otherwise unremarkable. Differential Diagnosis Diltiazem side effect, myocardial infarctionhighly unlikely, electrolyte disorder Narrative Course The patient appears to have a diltiazem side effect of bradycardia. His bradycardia occasionally causes ventricular escape beats which causes his palpitations. Occasionally we see a PAC on the rhythm strip. Plan: The patient will be [address] Mir, I discussed the patient with her. Diagnosis Primary Impression: Bradycardia Additional Impression: Palpitations Admitting Information Admitting Physician Requests: Observation Scotty Gaytan MD Nov 23, 2016 06:53
[2016-11-23 08:30] VITALS: BP 131/63; PULSE 58; RESP 20; TEMP 97.8; O2SAT 97
[2016-11-23 08:45] VITALS: BP 133/63; PULSE 60; RESP 20; O2SAT 97
[2016-11-23] MEDS ORDERED: SODIUM CHLORIDE 0.9% FLUSH 10 ML FLUSH IV FLUSH SCH (09:00)
[2016-11-23] MEDS ORDERED: ENOXAPARIN SODIUM 40 MG/0.4 ML SYRINGE SQ SCH (09:00)
[2016-11-23 09:15] VITALS: BP 132/63; PULSE 62; RESP 20; O2SAT 97
[2016-11-23 09:47] VITALS: BP 145/67; PULSE 66; RESP 20; O2SAT 98
[2016-11-23 11:33] VITALS: BP 165/74; PULSE 65; RESP 18; O2SAT 96
[2016-11-23] MEDS ORDERED: DILT300C3 PO (13:40)
--- NOTE | 2016-11-23 13:56 | HHI.HP ---
[facility] Service [facility] Primary Care Physician [facility] Admission Diagnosis bradycardia, diltiazem side effect Diagnoses: Travel History International Travel<30 Days: No Contact w/Intl Traveler <30 Da: No Traveled to Known Affected Are: No History of Present Illness 71-year-old male with a history of atrial fibrillation diagnosed 6 months ago followed by cardiology at the [place], on Pradaxa (denies history of TIA), COPD not on oxygen, rheumatoid arthritis, diabetes on metformin, who presents having woken up this morning around 3 AM with sensation of palpitations with "flipped beats"of his heart. He reports otherwise feeling fine. Denies any chest pain or shortness of breath. Denies any lightheadedness or dizziness. Denies any nausea or vomiting. Denies any fevers or chills. Patient does report that he will occasionally wake up with these palpitations several times per week, however it usually lasts only about a minute however today he kept having it even after his cup of decaf coffee. He took a cab to the ER, however says that palpitations have resolved after several hours in the ER. ECG shows sinus bradycardia with only occasional PACs on telemetry, and chest x-ray negative. Follow-up of telemetry shows patient in sinus rhythm with heart rate in the 70s. Diltiazem was held this morning. Is likely that sensation of "flipped beats'could've been from bradycardia, as this resolved as heart rate normalized. Also, due to the fact that this tends to affect him in the middle night, it is likely that patient has sleep apnea, and have advised him to get this checked out with his primary care doctor. Patient conveys understanding. Review of Systems Performed and negative except for history of present illness and past medical history. Past Family Social History Past Medical History Atrial fibrillation. With RVR 8-9 months ago. COPD. Without acute exacerbation. Patient has prescription for prednisone, however takes this as needed. Rheumatoid arthritis Past Surgical History Cataract surgery. Reported Medications Reported Meds & Active Scripts Active Lisinopril 10 Mg Tab 10 Mg PO DAILY Lortab (Hydrocodone-Acetaminophen) 5-325 Mg Tab 1-2 Tab PO Q6H PRN Prednisone 20 Mg Tab 40 Mg PO DAILY 4 Days Take 40 mg (2 tablets) daily for 5 days Cardizem CD 24 HR (Diltiazem CD 24 HR) 180 Mg Caper 360 Mg PO DAILY Proair Hfa 8.5 GM Inh (Albuterol Sulfate) 90 Mcg/Act Aer 2 Puff INH Q4HR PRN 108 mcg/actuation Reported Metformin (Metformin HCl) 1,000 Mg Tab 1,000 Mg PO BIDPC With meals Meloxicam 15 Mg Tab 15 Mg PO DAILY Folate (Folic Acid) 1 Mg Tab 1 Mg PO DAILY Symbicort Inh (Budesonide/Formoterol Fumarate) Unknown Strength Aero 2 Puff INH Q12HR Terazosin (Terazosin HCl) 1 Mg Cap 1 Mg PO HS Pravastatin 40 Mg Tab 40 Mg PO DAILY Methotrexate 2.5 Mg Tab 2.5 Mg PO Q7D Ferrous Sulfate 325 Mg Tab 325 Mg PO DAILY Allergies: Coded Allergies: No Known Allergies (Verified , 11/23/16) Family History Patient reports mother passed way from cancer, old age at age 84. Father in middle-age, from diabetes and kidney disease. Social History Patient quit smoking 3 months ago. Previously smoked 50 years, 2 packs per day. Physical Exam Vital Signs Vital Signs Date Time Temp Pulse Resp B/P Pulse Ox O2 Delivery O2 Flow Rate FiO2 11/23/16 11:33 65 18 165/74 96 Room Air 11/23/16 09:47 66 20 145/67 98 Room Air 11/23/16 09:15 62 20 132/63 97 Room Air 11/23/16 08:45 60 20 133/63 97 Room Air 11/23/16 08:30 97.8 58 20 131/63 97 Room Air 11/23/16 08:10 Room Air 11/23/16 04:45 97.7 51 16 134/62 96 Room Air Physical Exam GENERAL: This is a well-nourished, well-developed patient, in no apparent distress. Oriented 3. Pleasant. SKIN: No rashes, ecchymoses or lesions. Cool and dry. HEAD: Atraumatic. Normocephalic. No temporal or scalp tenderness. EYES: Pupils equal round and reactive. Extraocular motions intact. No scleral icterus. No injection or drainage. ENT: Nose without bleeding, purulent drainage or septal hematoma. Throat without erythema, tonsillar hypertrophy or exudate. Uvula midline. Airway patent. NECK: Trachea midline. No JVD or lymphadenopathy. Supple, nontender, no meningeal signs. CARDIOVASCULAR: Regular rate and rhythm without murmurs, gallops, or rubs. RESPIRATORY: Clear to auscultation. Breath sounds equal bilaterally. No wheezes , rales, or rhonchi. GASTROINTESTINAL: Abdomen soft, non-tender, nondistended. No hepato-splenomegaly , or palpable masses. No guarding. MUSCULOSKELETAL: Extremities without clubbing, cyanosis, or edema. No joint tenderness, effusion, or edema noted. No calf tenderness. Negative Homans sign bilaterally. NEUROLOGICAL: Awake and alert. Cranial nerves II through XII intact. Motor and sensory grossly within normal limits. Five out of 5 muscle strength in all muscle groups. Normal speech. Laboratory Laboratory Tests Test 11/23/16 05:30 White Blood Count 9.7 Red Blood Count 4.09 Hemoglobin 11.0 Hematocrit 33.2 Mean Corpuscular Volume 81.2 Mean Corpuscular Hemoglobin 26.8 Mean Corpuscular Hemoglobin 33.0 Concent Red Cell Distribution Width 16.9 Platelet Count 460 Mean Platelet Volume 7.7 Neutrophils (%) (Auto) 75.1 Lymphocytes (%) (Auto) 13.2 Monocytes (%) (Auto) 9.0 Eosinophils (%) (Auto) 2.6 Basophils (%) (Auto) 0.1 Neutrophils # (Auto) 7.3 Lymphocytes # (Auto) 1.3 Monocytes # (Auto) 0.9 Eosinophils # (Auto) 0.3 Basophils # (Auto) 0.0 CBC Comment DIFF FINAL Differential Comment Prothrombin Time 10.6 Prothromb Time International 1.0 Ratio Activated Partial 30.8 Thromboplast Time Sodium Level 139 Potassium Level 4.8 Chloride Level 106 Carbon Dioxide Level 24.1 Anion Gap 9 Blood Urea Nitrogen 19 Creatinine 1.22 Estimat Glomerular Filtration 59 Rate Random Glucose 143 Calcium Level 9.0 Aspartate Amino Transf 7 (AST/SGOT) Lactate Dehydrogenase 175 Total Creatine Kinase 48 Troponin I LESS THAN 0.02 Result Diagram: 11/23/16 0530 11/23/16 0530 Imaging Last Impressions Chest X-Ray 11/23/16 0000 Signed Impressions: Service Date/Time: Wednesday, November 23, 2016 05:56 - CONCLUSION: No acute disease. Kevin Cleary Jr., MD Assessment and Plan Assessment and Plan //Palpitations. Resolved //History of atrial fibrillation with RVR in the past. //Bradycardia, possibly causing palpitations -No lightheadedness or dizziness. No chest pain. EKG with bradycardia, however heart rate has normalized after holding diltiazem. -symptoms are likely exacerbated by obstructive sleep apnea. Undiagnosed. Patient will follow-up with primary care for this. Patient still did report symptoms of palpitations while he was bradycardic in the ED. We'll decrease dose of diltiazem slightly, from 360 mg to 300 mg long- acting daily. -Follow up with primary care at [place]. Follow-up with cardiology [place]. Patient conveys understanding //Diabetes. Blood sugars acceptable here. Continue metformin. //COPD. Crestor status is stable. Continue nebulizers at home. //Lipidemia. Chronic. Continue statin. //Prophylaxis. Patient received Lovenox here. In sinus rhythm. Will restart home Pradaxa tomorrow. Discussed Condition With Patient, nurse Ozzie Daniel MD Nov 23, 2016 13:56
[2016-11-23] MEDS ORDERED: DILTIAZEM-CD 300 MG CAP ER PO SCH (15:00)
--- NOTE | 2016-11-24 11:03 | EKG ---
Date Performed: 11/23/2016 Time Performed: 05:02:48 PTAGE: 71 years EKG: SINUS BRADYCARDIA BORDERLINE ECG PREVIOUS TRACING : 11/05/2016 23.49 DOCTOR: Daphne Redd Interpretating Date/Time 11/24/2016 11:00:56
== END 2016-11-23 14:36 | disposition home or self-care (01) ==
LOC: NEPC 04:42 → NEDA 06:56
PROVIDERS: ADMIT Internal Medicine; ATTEND Internal Medicine
DX: R00.2 Palpitations (principal); R00.1 Bradycardia, unspecified; I48.91 Unspecified atrial fibrillation; I11.0 Hypertensive heart disease with heart failure; M06.9 Rheumatoid arthritis, unspecified; E11.9 Type 2 diabetes mellitus without complications; E78.5 Hyperlipidemia, unspecified; J44.9 Chronic obstructive pulmonary disease, unspecified; Z86.73 Personal history of transient ischemic attack (TIA), and cerebral infarction without residual deficits; Z79.84 Long term (current) use of oral hypoglycemic drugs; Z79.52 Long term (current) use of systemic steroids; Z87.891 Personal history of nicotine dependence
CPT/HCPCS: 71010; 80048; 82550; 83615; 84450; 84484; 85025; 85610; 85730; 93005; G0378; J1650

== ENCOUNTER 2016-12-23 07:20 | Observation (INO) | payer OTHER, MEDICARE ==
[~2016-12-23] VITALS: Ht 167.6 cm; Wt 88.0 kg
[2016-12-23] VITALS (8 sets, daily range): BP systolic 143–181; BP diastolic 63–84; PULSE 56–68; RESP 16–23; TEMP 97.4–98; O2SAT 96–98
[~2016-12-23 07:20] MED LIST changes: -CARD180C5 PO; +DILT300C3 PO
[2016-12-23] MEDS ORDERED: PRAD150C PO (07:52)
[2016-12-23] MEDS ORDERED: SODIUM CHLORIDE 0.9% FLUSH 10 ML FLUSH IVF PRN (08:15)
--- NOTE | 2016-12-23 08:27 | RADRPT ---
EXAM DATE/TIME: 12/23/2016 08:14 [place] COMPARISON: CHEST PA & LAT, February 27, 2015, 15:49. INDICATIONS : Chest pain MEDICAL HISTORY : Chronic obstructive pulmonary disease. A-fib. SURGICAL HISTORY : None. ENCOUNTER: Initial ACUITY: 1 day PAIN SCORE: 0/10 LOCATION: Bilateral chest FINDINGS: The heart size is upper limits of normal. Lungs are grossly clear. No effusion is seen. CONCLUSION: No acute disease. Robbie Boucher MD on December 23, 2016 at 8:23 Board Certified Radiologist. This report was verified electronically.
[2016-12-23 08:44] LABS: AUTOMATED NEUTROPHIL # 5.4 TH/MM3 (1.8-7.7); BASOPHIL % 0.3 % (0.0-2.0); EOSINOPHIL # 0.2 TH/MM3 (0-0.4); EOSINOPHIL % 2.3 % (0.0-4.0); HEMATOCRIT 31.1 % (39.0-51.0); HEMO FLAGS DIFF FINAL; LYMPH % 12.9 % (9.0-44.0); LYMPHOCYTE # 0.9 TH/MM3 (1.0-4.8); MEAN CELL VOLUME 79.2 FL (80.0-100.0); MEAN CORPUSCULAR HEMOGLOBIN 26.1 PG (27.0-34.0); MONO % 8.8 % (0.0-8.0); NEUT % 75.7 % (16.0-70.0); PLATELET COUNT 361 TH/MM3 (150-450); RED BLOOD COUNT 3.92 MIL/MM3 (4.50-5.90); RED CELL DISTRIBUTION WIDTH 17.6 % (11.6-17.2); WHITE BLOOD COUNT 7.1 TH/MM3 (4.0-11.0)
[2016-12-23 08:57] LABS: APTT (PATIENT) 48.9 SEC (24.3-30.1); INTERNATIONAL NORMALIZED RATIO 1.1 RATIO; PROTHROMBIN TIME - PATIENT 11.7 SEC (9.8-11.6)
[2016-12-23 09:20] LABS: ANION GAP 7 MEQ/L (5-15); AST (GOT) 10 U/L (15-37); BICARBONATE 24.6 MEQ/L (21.0-32.0); BLOOD UREA NITROGEN 19 MG/DL (7-18); CHLORIDE 103 MEQ/L (98-107); GLOMERULAR FILTRATION RATE 55 ML/MIN (>89); MAGNESIUM 1.8 MG/DL (1.5-2.5); POTASSIUM 4.8 MEQ/L (3.5-5.1); SODIUM (NA) 135 MEQ/L (136-145)
[2016-12-23 09:25] LABS: ALKALINE PHOSPHATASE 90 U/L (45-117); ALT (GPT) 13 U/L (12-78); TOTAL BILIRUBIN ADULT 0.3 MG/DL (0.2-1.0)
--- NOTE | 2016-12-23 10:43 | PD ---
HPI Chief Complaint: Cardiac Complaint Time Seen by Provider: 08:01 Travel History International Travel<30 days: No Contact w/Intl Traveler<30days: No Traveled to known affect area: No History of Present Illness HPI Patient is a 71 year old male who comes in complaining of palpitations, chest tightness and leg weakness. He says this came on today while he was doing laundry. He says he has had this problem before, but has not seen his doctor for it. He has history of A. fib, that was diagnosed about 6 or 7 months ago. He is currently on Pradaxa. He denies any shortness of breath. He says he is still feeling the tightness in his chest and he feels his heart beating funny. He denies fever or chills. He denies nausea or vomiting. PFSH Past Medical History Hx Anticoagulant Therapy: Yes Arthritis: Yes Asthma: Yes Cardiovascular Problems: Yes Congestive Heart Failure: Yes COPD: Yes Cerebrovascular Accident: Yes (TIA) Coronary Artery Disease: No Diabetes: Yes (TYPE II) Patient Takes Glucophage: Yes Genitourinary: Yes ( enlarged prostate) Hypertension: Yes Respiratory: Yes (COPD) Immunizations Current: Yes Tetanus Vaccination: > 5 Years Influenza Vaccination: Yes Past Surgical History Eye Surgery: Yes (BILAT CATARACT/LENS IMPLANT SURGERY) Other Surgery: Yes (CATARACTS AND LENS IMPLANTS) Social History Alcohol Use: No Tobacco Use: No Substance Use: No Allergies-Medications (Allergen,Severity, Reaction): Coded Allergies: No Known Allergies (Verified , 12/23/16) Reported Meds & Prescriptions Reported Meds & Active Scripts Active Diltiazem CD 24 HR 300 Mg Caper 300 Mg PO DAILY Reported Albuterol Neb (Albuterol Sulfate) 0.63 Mg/3 Ml Neb 0.63 Mg NEB QID NEB PRN Pradaxa (Dabigatran) 150 Mg Cap 150 Mg PO BID Metformin (Metformin HCl) 1,000 Mg Tab 1,000 Mg PO BIDPC With meals Meloxicam 15 Mg Tab 15 Mg PO DAILY Folate (Folic Acid) 1 Mg Tab 1 Mg PO DAILY Symbicort Inh (Budesonide/Formoterol Fumarate) Unknown Strength Aero 2 Puff INH Q12HR Terazosin (Terazosin HCl) 1 Mg Cap 1 Mg PO HS Pravastatin 40 Mg Tab 40 Mg PO DAILY Methotrexate 2.5 Mg Tab 2.5 Mg PO Q7D Ferrous Sulfate 325 Mg Tab 325 Mg PO DAILY Review of Systems Except as stated in HPI: all other systems reviewed are Neg General / Constitutional: No: Fever, Chills HENT: No: Lightheadedness Cardiovascular: Positive: Chest Pain or Discomfort, Palpitations Respiratory: No: Shortness of Breath Gastrointestinal: No: Nausea, Vomiting Musculoskeletal: No: Edema, Pain Neurologic: Positive: Weakness Physical Exam Narrative GENERAL: Awake and alert, no acute distress. SKIN: Focused skin assessment warm/dry. HEAD: Atraumatic. Normocephalic. EYES: Pupils equal and round. No scleral icterus. ENT: Mucous membranes pink and moist. NECK: Trachea midline. No JVD. CARDIOVASCULAR: Regular rate and rhythm. No murmur appreciated. RESPIRATORY: No accessory muscle use. Clear to auscultation. Breath sounds equal bilaterally. GASTROINTESTINAL: Abdomen soft, non-tender, nondistended. MUSCULOSKELETAL: No obvious deformities. No clubbing. No cyanosis. No edema. NEUROLOGICAL: Awake and alert. No obvious cranial nerve deficits. Motor grossly within normal limits. Normal speech. PSYCHIATRIC: Appropriate mood and affect; insight and judgment normal. Data Data Last Documented VS Vital Signs Date Time Temp Pulse Resp B/P Pulse Ox O2 Delivery O2 Flow Rate FiO2 12/23/16 10:00 68 20 164/81 96 Room Air 12/23/16 08:31 2 12/23/16 07:21 98.0 Orders B-Type Natriuretic Peptide (12/23/16 08:08) Complete Blood Count With Diff (12/23/16 08:08) Comprehensive Metabolic Panel (12/23/16 08:08) Magnesium (Mg) (12/23/16 08:08) Prothrombin Time / Inr (Pt) (12/23/16 08:08) Act Partial Throm Time (Ptt) (12/23/16 08:08) Troponin I (12/23/16 08:08) Ecg Monitoring (12/23/16 08:08) Bilateral Bp Monitoring (12/23/16 08:08) Iv Access Insert/Monitor (12/23/16 08:08) Oximetry (12/23/16 08:08) Oxygen Administration (12/23/16 08:08) Sodium Chloride 0.9% Flush (Ns Flush) (12/23/16 08:15) Chest, Pa & Lat (12/23/16 08:08) Electrocardiogram (12/23/16 07:49) Admit Order (Ed Use Only) (12/23/16 ) Labs Laboratory Tests Test 12/23/16 08:15 White Blood Count 7.1 TH/MM3 Red Blood Count 3.92 MIL/MM3 Hemoglobin 10.3 GM/DL Hematocrit 31.1 % Mean Corpuscular Volume 79.2 FL Mean Corpuscular Hemoglobin 26.1 PG Mean Corpuscular Hemoglobin 33.0 % Concent Red Cell Distribution Width 17.6 % Platelet Count 361 TH/MM3 Mean Platelet Volume 8.1 FL Neutrophils (%) (Auto) 75.7 % Lymphocytes (%) (Auto) 12.9 % Monocytes (%) (Auto) 8.8 % Eosinophils (%) (Auto) 2.3 % Basophils (%) (Auto) 0.3 % Neutrophils # (Auto) 5.4 TH/MM3 Lymphocytes # (Auto) 0.9 TH/MM3 Monocytes # (Auto) 0.6 TH/MM3 Eosinophils # (Auto) 0.2 TH/MM3 Basophils # (Auto) 0.0 TH/MM3 CBC Comment DIFF FINAL Differential Comment Prothrombin Time 11.7 SEC Prothromb Time International 1.1 RATIO Ratio Activated Partial 48.9 SEC Thromboplast Time Sodium Level 135 MEQ/L Potassium Level 4.8 MEQ/L Chloride Level 103 MEQ/L Carbon Dioxide Level 24.6 MEQ/L Anion Gap 7 MEQ/L Blood Urea Nitrogen 19 MG/DL Creatinine 1.29 MG/DL Estimat Glomerular Filtration 55 ML/MIN Rate Random Glucose 145 MG/DL Calcium Level 9.3 MG/DL Magnesium Level 1.8 MG/DL Total Bilirubin 0.3 MG/DL Aspartate Amino Transf 10 U/L (AST/SGOT) Alanine Aminotransferase 13 U/L (ALT/SGPT) Alkaline Phosphatase 90 U/L Troponin I LESS THAN 0.02 NG/ML B-Type Natriuretic Peptide 113 PG/ML Total Protein 7.4 GM/DL Albumin 3.2 GM/DL [facility] Medical Decision Making Medical Screen Exam Complete: Yes Emergency Medical Condition: Yes Medical Record Reviewed: Yes Interpretation(s) ECG shows normal sinus rhythm, no ST elevation or depression. Differential Diagnosis ACS versus electrolyte abnormality versus NSTEMI versus STEMI Narrative Course Patient is a 71-year-old male who comes in complaining of palpitations as well as chest tightness and leg weakness. Exam shows no acute abnormalities. IV established, patient connected to the coach. Labs sent in no acute abnormalities, first troponin is negative. Patient is on blood thinners. Will be placed in chest pain center for further management. Diagnosis Primary Impression: Chest pain Qualified Code: R07.9 - Chest pain, unspecified type Admitting Information Admitting Physician Requests: Observation Condition: Stable Tish Lopez MD Dec 23, 2016 10:43
[2016-12-23] MEDS ORDERED: ONDANSETRON HCL 4 MG/2 ML VIAL IV PRN (11:00)
[2016-12-23] MEDS ORDERED: ACETAMINOPHEN 500 MG CPLT PO PRN (11:00)
[2016-12-23] MEDS ORDERED: NITROGLYCERIN 0.4 MG SL 25 TABS/BTL SL PRN (11:00)
[2016-12-23 12:25] LABS: CREATINE KINASE 44 U/L (39-308)
[2016-12-23] MEDS ORDERED: ALBU0.63 NEB (12:34)
--- NOTE | 2016-12-23 12:44 | HHI.HP ---
HPI Primary Care Physician [facility] Chief Complaint Palpitations History of Present Illness 71 year-old male presents to the emergency room for further evaluation of feeling as though his heart was" skipping beats." History of paroxysmal A. fib and was concerned his heart rate went into A. fib. No chest pain or discomfort. Onset 5:30 AM while doing laundry. Associated symptoms included lightheadedness. No loss of consciousness, nausea, vomiting or shortness of breath. He follows with a warehouse assistant in the [place] in [place]. Wore a Holter monitor for 2 weeks approximately 2 months ago and no cardiac arrhythmias identified. No recent illness or travel. Review of Systems General: No fatigue,weakness, fever, chills, or recent illness HEENT: No ZAIDI, no vision changes, no nasal congestion or drainage CV: [place] as though his heart was skipping beats, as stated above. No CP or pressure. RESP: No SOB, cough, wheeze. Endorses COPD is stable with current inhalers. GI: No nausea, vomiting, bowel changes, diarrhea, constipation, pain, distention , melena, blood in the stool. No change in appetite. : No dysuria EXT: No lower leg edema, no paraesthesias MS: No discomfort or change in ROM NEURO: No change in memory, dizziness, difficulty with balance, LOC, motor/ sensory deficits PSYCH: No anxiety or depression SKIN: No rashes, no concerning lesions Past Family Social History Allergies: Coded Allergies: No Known Allergies (Verified , 12/23/16) Past Medical History Paroxysmal A. fib, COPD, rheumatoid arthritis, diabetes type 2, hypertension, congestive heart failure Past Surgical History Bilateral cataract surgeries-2011 Reported Medications Reported Meds & Active Scripts Active Diltiazem CD 24 HR 300 Mg Caper 300 Mg PO DAILY Albuterol Neb (Albuterol Sulfate) 0.63 Mg/3 Ml Neb 0.63 Mg NEB QID NEB PRN Pradaxa (Dabigatran) 150 Mg Cap 150 Mg PO BID Metformin (Metformin HCl) 1,000 Mg Tab 1,000 Mg PO BIDPC With meals Meloxicam 15 Mg Tab 15 Mg PO DAILY Folate (Folic Acid) 1 Mg Tab 1 Mg PO DAILY Symbicort Inh (Budesonide/Formoterol Fumarate) Unknown Strength Aero 2 Puff INH Q12HR Terazosin (Terazosin HCl) 1 Mg Cap 1 Mg PO HS Pravastatin 40 Mg Tab 40 Mg PO DAILY Methotrexate 2.5 Mg Tab 2.5 Mg PO Q7D Ferrous Sulfate 325 Mg Tab 325 Mg PO DAILY Active Ordered Medications Current Medications Medications (Trade) Dose Ordered Sig/Veto Route Start Time Stop Time Status Last Admin (Tylenol) 500 mg Q4H PRN PO 12/23/16 11:00 (Zofran Inj) 4 mg Q6H PRN IV 12/23/16 11:00 (Nitrostat Sl) 0.4 mg Q5M PRN SL 12/23/16 11:00 (Aspirin) 325 mg DAILY PO 12/24/16 09:00 Social History Known diabetes and hypertension. No known hyperlipidemia. Lifelong nonsmoker. Denies any alcohol or illegal drug use. Sedentary relates this to chronic pain from rheumatoid arthritis. Past cardiac testing No recent stress testing. Follows with warehouse assistant [place] in [place] 4 months ago. Recent Holter monitor wore for 2 weeks unremarkable. Recent echocardiogram unremarkable. 10/14/12 Elvia scanno ischemia. Small fixed lateral wall perfusion defect. Ejection fraction 67% Physical Exam Vital Signs Vital Signs Date Time Temp Pulse Resp B/P Pulse Ox O2 Delivery O2 Flow Rate FiO2 12/23/16 12:07 97.4 66 18 181/84 97 12/23/16 11:15 Nasal Cannula 2.00 12/23/16 11:00 66 16 168/83 96 Room Air 12/23/16 10:00 68 20 164/81 96 Room Air 12/23/16 08:31 98 Room Air 12/23/16 08:31 99 Nasal Cannula 2 12/23/16 08:01 16 99 Room Air 12/23/16 08:00 62 23 145/77 98 Room Air 12/23/16 07:21 98.0 56 20 143/63 98 Room Air Physical Exam GENERAL: Alert WN, WD, NAD, pleasant, male HEAD: NC, AT EYES: Sclera clear, conjunctiva without injection, pupils equal and round ENT: Mucous membranes pink and moist NECK: Supple, no masses, trachea midline CV: RRR, without murmur, rub, gallop, no JVD, S1-S2 no S3-S4. No carotid or femoral bruits RESP: Clear lungs throughout bilateral, no crackles, wheeze, rhonchi, symmetrical chest rise, nonlabored, able to speak in full sentences ABD: Soft, NT, ND, no masses, positive bowel tones EXT: Pulses +24, no dependent edema MS: Normal tone 4 extremities, nontender, no obvious deformities, full range of motion NEURO: CN II through CN XII grossly intact, motor strength 5/5, gait WNL PSYCH: A+O 3, pleasant affect, appropriate speech, appropriate mood and affect , insight and judgment SKIN: Normal turgor, normal texture, no lesions, no rashes, brisk cap refill, even hair distribution Laboratory Laboratory Tests Test 12/23/16 12/23/16 08:15 11:10 White Blood Count 7.1 Red Blood Count 3.92 Hemoglobin 10.3 Hematocrit 31.1 Mean Corpuscular Volume 79.2 Mean Corpuscular Hemoglobin 26.1 Mean Corpuscular Hemoglobin 33.0 Concent Red Cell Distribution Width 17.6 Platelet Count 361 Mean Platelet Volume 8.1 Neutrophils (%) (Auto) 75.7 Lymphocytes (%) (Auto) 12.9 Monocytes (%) (Auto) 8.8 Eosinophils (%) (Auto) 2.3 Basophils (%) (Auto) 0.3 Neutrophils # (Auto) 5.4 Lymphocytes # (Auto) 0.9 Monocytes # (Auto) 0.6 Eosinophils # (Auto) 0.2 Basophils # (Auto) 0.0 CBC Comment DIFF FINAL Differential Comment Prothrombin Time 11.7 Prothromb Time International 1.1 Ratio Activated Partial 48.9 Thromboplast Time Sodium Level 135 Potassium Level 4.8 Chloride Level 103 Carbon Dioxide Level 24.6 Anion Gap 7 Blood Urea Nitrogen 19 Creatinine 1.29 Estimat Glomerular Filtration 55 Rate Random Glucose 145 Calcium Level 9.3 Magnesium Level 1.8 Total Bilirubin 0.3 Aspartate Amino Transf 10 (AST/SGOT) Alanine Aminotransferase 13 (ALT/SGPT) Alkaline Phosphatase 90 Troponin I LESS THAN 0.02 LESS THAN 0.02 B-Type Natriuretic Peptide 113 Total Protein 7.4 Albumin 3.2 Total Creatine Kinase 44 Result Diagram: 12/23/1681412/23/1615 Imaging Last Impressions Chest X-Ray 12/23/16 0808 Signed Impressions: Service Date/Time: Friday, December 23, 2016 08:14 - CONCLUSION: No acute disease. Robbie Boucher MD Course EKGs Two EKGs normal sinus rhythm, with 1st AVB, no st t segment changes Assessment and Plan Assessment and Plan #1 Palpations-admitted to chest pain center. Ruled out with 2 sets of EKGs and cardiac enzymes. Seen and evaluated by Dr. Feng Ko. Teaching provided on how to check his pulse, A. fib, and reassured if he his heart were to go into A. fib he is on appropriate medication to prevent stroke. No further cardiac testing. Will discharge this afternoon. Follow-up with cardiology as previously discussed with them. #2 Anemia-follow with PCP as per previously discussed with them if this is a chronic issue Raquel Sutherland Dec 23, 2016 12:44
--- NOTE | 2016-12-23 13:30 | EKG ---
Date Performed: 12/23/2016 Time Performed: 07:49:53 PTAGE: 71 years EKG: Sinus rhythm WITH FIRST DEGREE AV BLOCK Compared to prior tracing no significant change ABNORMAL ECG INTERPRETATI ON BASED ON A DEFAULT AGE OF 41 YEARS PREVIOUS TRACING : 11/23/2016 05.02 DOCTOR: Tee Frias Interpretating Date/Time 12/23/2016 13:28:00
--- NOTE | 2016-12-23 15:05 | EKG ---
Date Performed: 12/23/2016 Time Performed: 11:08:23 PTAGE: 71 years EKG: Sinus rhythm WITH FIRST DEGREE AV BLOCK ABNORMAL ECG PREVIOUS TRACING : 12/23/2016 07.49 Since previous tracing, no significant change noted DOCTOR: Feng Ko Interpretating Date/Time 12/23/2016 15:03:29
[2016-12-23] MEDS ORDERED: SODIUM CHLORIDE 0.9% FLUSH 10 ML FLUSH IV FLUSH SCH (21:00)
[2016-12-24] MEDS ORDERED: ASPIRIN 325 MG TAB PO SCH (09:00)
== END 2016-12-23 16:25 | disposition home or self-care (01) ==
LOC: NEPE 07:20 → NEDA 10:17 → NEPHCDU 11:57
DX: I48.0 Paroxysmal atrial fibrillation (principal); I11.0 Hypertensive heart disease with heart failure; I50.9 Heart failure, unspecified; D64.9 Anemia, unspecified; R00.2 Palpitations; R07.89 Other chest pain; G89.29 Other chronic pain; M06.9 Rheumatoid arthritis, unspecified; R53.1 Weakness; J44.9 Chronic obstructive pulmonary disease, unspecified; J45.909 Unspecified asthma, uncomplicated; N40.0 Benign prostatic hyperplasia without lower urinary tract symptoms; E11.9 Type 2 diabetes mellitus without complications; Z79.84 Long term (current) use of oral hypoglycemic drugs; Z86.73 Personal history of transient ischemic attack (TIA), and cerebral infarction without residual deficits; Z79.01 Long term (current) use of anticoagulants
CPT/HCPCS: 71020; 80053; 82550; 83735; 83880; 84484; 85025; 85610; 85730; 93005; 99285; G0378

== ENCOUNTER 2017-05-04 08:22 | Emergency (ER) | payer MEDICARE, OTHER ==
[~2017-05-04] VITALS: Ht 167.6 cm; Wt 85.0 kg
[~2017-05-04 08:22] MED LIST changes: +ALBU0.63 NEB; -ALBUAER3 INH; -HYDR-3533 PO; -LISI10TA3 PO; +PRAD150C PO; -PRED20 PO
[2017-05-04 08:23] VITALS: BP 223/103; PULSE 93; RESP 15; TEMP 98.2; O2SAT 98
[2017-05-04] MEDS ORDERED: FOLI1TAB6 PO (08:36)
[2017-05-04] MEDS ORDERED: FERR325T8 PO (08:36)
[2017-05-04] MEDS ORDERED: METH2.5T PO (08:39)
[2017-05-04 08:42] VITALS: BP 203/94; PULSE 84; RESP 19; O2SAT 98
--- NOTE | 2017-05-04 08:44 | PD ---
HPI Chief Complaint: Hypertension Time Seen by Provider: 08:28 Travel History International Travel<30 days: No Contact w/Intl Traveler<30days: No Traveled to known affect area: No History of Present Illness HPI This 71-year-old man presents emergent department complaining that he is had elevated blood pressure readings. He states [facility] and wanted it less than 130/90. He states he's had blood pressures running mostly in the 180s and over 90. He has no other symptoms. CT occasionally gets brief episodes of lightheadedness. No chest pain, no trouble breathing, no change in his urination, no other complaints. He has multiple medical problems. He was taken off his metoprolol recently his heart rate was dropping too low with his A. fib. He continues on his diltiazem. He did not take his medications today. History Past Medical History Narrative Medical A. fib, atrial tachycardia, on Pradaxa, diltiazem COPD Rheumatoid arthritis, on methotrexate Diabetes type 2 Anemia BPH History of TIA in the past Social History Alcohol Use: No Tobacco Use: No Allergies-Medications (Allergen,Severity, Reaction): Coded Allergies: No Known Allergies (Verified , 05/04/17) Reported Meds & Prescriptions Reported Meds & Active Scripts Active Diltiazem CD 24 HR 300 Mg Caper 300 Mg PO DAILY Reported Folic Acid 1 Mg Tablet 1 Mg PO DAILY Ferrous Sulfate 325 Mg (65 Mg Iron) Tablet 325 Mg PO BIDPC Albuterol Neb (Albuterol Sulfate) 0.63 Mg/3 Ml Neb 0.63 Mg NEB QID NEB PRN Pradaxa (Dabigatran) 150 Mg Cap 150 Mg PO BID Metformin (Metformin HCl) 1,000 Mg Tab 1,000 Mg PO BIDPC With meals Symbicort Inh (Budesonide/Formoterol Fumarate) Unknown Strength Aero 2 Puff INH Q12HR Terazosin (Terazosin HCl) 1 Mg Cap 1 Mg PO HS Pravastatin 40 Mg Tab 40 Mg PO DAILY Review of Systems Except as stated in HPI: all other systems reviewed are Neg Physical Exam Narrative GENERAL: Well-appearing 71-year-old man, no acute distress. SKIN: Focused skin assessment warm/dry. HEAD: Atraumatic. Normocephalic. CARDIOVASCULAR: Regular rate and rhythm. No murmur appreciated. RESPIRATORY: No accessory muscle use. Clear to auscultation. Breath sounds equal bilaterally. GASTROINTESTINAL: Abdomen soft, non-tender, nondistended. Hepatic and splenic margins not palpable. MUSCULOSKELETAL: No obvious deformities. No edema. NEUROLOGICAL: Awake and alert. No obvious cranial nerve deficits. Motor grossly within normal limits. Normal speech. Data Data Last Documented VS Vital Signs Date Time Temp Pulse Resp B/P (MAP) Pulse Ox O2 Delivery O2 Flow Rate FiO2 05/04/17 08:23 98.2 93 15 223/103 (143) 98 MDM Medical Decision Making Medical Screen Exam Complete: Yes Emergency Medical Condition: Yes Differential Diagnosis Asymptomatic high blood pressure, hypertensive crisis, hypertensive emergency Narrative Course Medical decision making 71-year-old man who presents emergency Department with elevated blood pressure readings. He really doesn't have any symptoms at all. States he feels lightheaded occasionally. We'll he could make adjustments to his medications here, I think is the best done by his primary care physician knows what medicines he is been on in the past, what he said success with, and can guide his long-term therapy. He has no indications for acute blood pressure lowering. Heart rate and blood pressure both little bit high today, but he did not take his diltiazem yet today. Diagnosis Primary Impression: Elevated blood pressure reading with diagnosis of hypertension Patient Instructions: General Instructions Additional Instructions: Continue current medications. Follow-up with your primary doctor next week for adjustment of your blood pressure medications. Return to the emergency department for any new or worsening symptoms. Med/Other Pt SpecificInfo: No Change to Meds Disposition: 01 DISCHARGE HOME Condition: Stable Terry Garcias MD May 04, 2017 08:44
== END 2017-05-04 09:07 | disposition home or self-care (01) ==
LOC: NEPC 08:22
DX: I10 Essential (primary) hypertension (principal); R42 Dizziness and giddiness; E11.9 Type 2 diabetes mellitus without complications; Z86.79 Personal history of other diseases of the circulatory system; Z79.01 Long term (current) use of anticoagulants; Z79.84 Long term (current) use of oral hypoglycemic drugs; Z87.09 Personal history of other diseases of the respiratory system; Z87.39 Personal history of other diseases of the musculoskeletal system and connective tissue; Z86.2 Personal history of diseases of the blood and blood-forming organs and certain disorders involving the immune mechanism; Z87.438 Personal history of other diseases of male genital organs
CPT/HCPCS: 99281

== ENCOUNTER 2017-05-13 06:04 | Emergency (ER) | payer OTHER ==
[~2017-05-13] VITALS: Ht 167.6 cm; Wt 84.0 kg
[~2017-05-13 06:04] MED LIST changes: -FERR325T PO; +FERR325T8 PO; -FOLI1TAB4 PO; +FOLI1TAB6 PO; -MELO-1 PO
[2017-05-13 06:18] VITALS: BP 192/91; PULSE 91; RESP 18; TEMP 98.3; O2SAT 95
[2017-05-13] MEDS ORDERED: ALBUTEROL SULFATE 90 MCG/ACT HFA 8 GM INHALER INH ONE (06:30)
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
[2017-05-13 06:38] LABS: AUTOMATED NEUTROPHIL # 4.9 TH/MM3 (1.8-7.7); BASOPHIL % 0.3 % (0.0-2.0); EOSINOPHIL # 0.1 TH/MM3 (0-0.4); EOSINOPHIL % 1.1 % (0.0-4.0); HEMATOCRIT 33.5 % (39.0-51.0); HEMO FLAGS DIFF FINAL; LYMPH % 11.3 % (9.0-44.0); LYMPHOCYTE # 0.7 TH/MM3 (1.0-4.8); MEAN CELL VOLUME 88.8 FL (80.0-100.0); MEAN CORPUSCULAR HGB CONC 32.6 % (32.0-36.0); MONO % 8.1 % (0.0-8.0); NEUT % 79.2 % (16.0-70.0); PLATELET COUNT 331 TH/MM3 (150-450); RED BLOOD COUNT 3.78 MIL/MM3 (4.50-5.90); RED CELL DISTRIBUTION WIDTH 17.9 % (11.6-17.2); WHITE BLOOD COUNT 6.2 TH/MM3 (4.0-11.0)
[2017-05-13] MEDS ORDERED: PRED20 PO (06:42)
--- NOTE | 2017-05-13 06:58 | RADRPT ---
EXAM DATE/TIME: 05/13/2017 06:51 [place] COMPARISON: CHEST SINGLE AP, November 23, 2016, 5:56. INDICATIONS : Short of breath. MEDICAL HISTORY : None. SURGICAL HISTORY : None. ENCOUNTER: Initial ACUITY: 1 day PAIN SCORE: 0/10 LOCATION: Bilateral chest FINDINGS: A single view of the chest demonstrates minimal basilar atelectasis. Trace left pleural fluid. Heart size within normal limits. No pneumothorax. CONCLUSION: 1. Mild basilar atelectasis. Trace left pleural fluid. No pneumothorax. Roberto Tolbert MD on May 13, 2017 at 6:50 Board Certified Radiologist. This report was verified electronically.
[2017-05-13 07:08] LABS: BICARBONATE 23.7 MEQ/L (21.0-32.0); POTASSIUM 4.5 MEQ/L (3.5-5.1)
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
== END 2017-05-13 09:16 | disposition home or self-care (01) ==
LOC: NEPC 06:04
DX: J44.1 Chronic obstructive pulmonary disease with (acute) exacerbation (principal); J90 Pleural effusion, not elsewhere classified; E11.9 Type 2 diabetes mellitus without complications; I10 Essential (primary) hypertension; E78.5 Hyperlipidemia, unspecified; Z79.01 Long term (current) use of anticoagulants; Z79.84 Long term (current) use of oral hypoglycemic drugs; Z87.39 Personal history of other diseases of the musculoskeletal system and connective tissue; Z87.09 Personal history of other diseases of the respiratory system; Z86.79 Personal history of other diseases of the circulatory system; Z87.438 Personal history of other diseases of male genital organs; Z87.891 Personal history of nicotine dependence
CPT/HCPCS: 71010; 80048; 85025; 94664; 99284

== ENCOUNTER 2017-07-12 08:54 | Emergency (ER) | payer OTHER ==
[~2017-07-12] VITALS: Ht 167.6 cm; Wt 86.0 kg
[~2017-07-12 08:54] MED LIST changes: +FERR325T18 PO; -FERR325T8 PO; +PRED20 PO
[2017-07-12 08:56] VITALS: BP 187/82; PULSE 82; RESP 13; TEMP 98.1; O2SAT 99
[2017-07-12] MEDS ORDERED: BACT800T5 PO (09:26)
--- NOTE | 2017-07-12 09:26 | PD ---
HPI Chief Complaint: Skin Problem Time Seen by Provider: 09:08 Travel History International Travel<30 days: No Contact w/Intl Traveler<30days: No Traveled to known affect area: No History of Present Illness HPI The patient is a 71 year-old male who presents to the emergency department for redness to the right forearm. The patient states his blood draw at the [facility] last week, then developed redness over the anterior aspect of the right proximal forearm in the distal aspect of the right humerus. He does note there is a palpable cord which is slightly tender and erythematous. The patient is currently on Pradaxa for history of atrial fibrillation but had an outpatient ultrasound performed several days ago at the [facility] which was negative for DVT. He was diagnosed with superficial thrombophlebitis and placed on Keflex. However, he continues to have discomfort over the affected area. He denies any chest pain or shortness of breath. He denies any swollen under the right axilla. He denies any fever, chills, or sweats. The patient does have a history of diabetes for which he takes metformin. PFSH Past Medical History Hx Anticoagulant Therapy: Yes (PRADAXA) Arthritis: Yes (RA) Asthma: Yes High Cholesterol: Yes Congestive Heart Failure: Yes COPD: Yes Cerebrovascular Accident: Yes (TIA) Coronary Artery Disease: No Diabetes: Yes Patient Takes Glucophage: Yes Diminished Hearing: No Genitourinary: Yes ( enlarged prostate) Hypertension: Yes Respiratory: Yes (COPD) Immunizations Current: Yes Past Surgical History Eye Surgery: Yes (BILAT CATARACT/LENS IMPLANT SURGERY) Other Surgery: Yes (CATARACTS AND LENS IMPLANTS) Social History Alcohol Use: No Tobacco Use: No (QUIT 09/18) Substance Use: No Allergies-Medications (Allergen,Severity, Reaction): Coded Allergies: No Known Allergies (Verified Adverse Reaction, Unknown, 07/12/17) Reported Meds & Prescriptions Reported Meds & Active Scripts Active Diltiazem CD 24 HR 300 Mg Caper 300 Mg PO DAILY Reported Methotrexate 2.5 Mg Tab 2.5 Mg PO Q7D Folic Acid 1 Mg Tablet 1 Mg PO DAILY Ferrous Sulfate 325 Mg (65 Mg Iron) Tablet 325 Mg PO BIDPC Albuterol Neb (Albuterol Sulfate) 0.63 Mg/3 Ml Neb 0.63 Mg NEB QID NEB PRN Pradaxa (Dabigatran) 150 Mg Cap 150 Mg PO BID Metformin (Metformin HCl) 1,000 Mg Tab 1,000 Mg PO BIDPC With meals Symbicort Inh (Budesonide/Formoterol Fumarate) Unknown Strength Aero 2 Puff INH Q12HR Terazosin (Terazosin HCl) 1 Mg Cap 1 Mg PO HS Pravastatin 40 Mg Tab 40 Mg PO DAILY Review of Systems General / Constitutional: No: Fever, Chills Musculoskeletal: Positive: Pain Skin: Positive Other (as noted in history present illness) Neurologic: No: Paresthesia, Sensory Disturbance Physical Exam Narrative GENERAL: Awake, alert, pleasant 8-year-old male who appears his stated age and is in no acute respiratory distress. SKIN: Focused skin assessment warm/dry. HEAD: Atraumatic. Normocephalic. EYES: No injection or drainage. NECK: Trachea midline. No JVD. MUSCULOSKELETAL: There is an old visible puncture wound in the anterior aspect of the right antecubital fossa. There is mild erythema over the proximal right forearm and the distal aspect of the right humerus with a palpable cord which is erythematous consistent with superficial thrombophlebitis. There is no palpable epitrochlear lymphadenopathy or right axillary lymphadenopathy. Positive right radial pulse. NEUROLOGICAL: Awake and alert. No obvious cranial nerve deficits. Motor grossly within normal limits. Normal speech. PSYCHIATRIC: Appropriate mood and affect; insight and judgment normal. Data Data Last Documented VS Vital Signs Date Time Temp Pulse Resp B/P (MAP) Pulse Ox O2 Delivery O2 Flow Rate FiO2 07/12/17 08:56 98.1 82 13 187/82 (117) 99 MDM Medical Decision Making Medical Screen Exam Complete: Yes Emergency Medical Condition: Yes Medical Record Reviewed: Yes Differential Diagnosis Differential diagnosis includes superficial thrombophlebitis, DVT, cellulitis, infected wound, abscess. Narrative Course The patient had an outpatient ultrasound which was negative for DVT and is already on Pradaxa, doubt DVT. Physical examination is consistent with superficial thrombophlebitis. The patient will be placed on Bactrim to cover for MRSA comes advised to have warm compresses to the affected area and follow- up in the [place] clinic. Diagnosis Primary Impression: Superficial thrombophlebitis Qualified Codes: I80.8 - Phlebitis and thrombophlebitis of other sites Patient Instructions: General Instructions Additional Instructions: Medications as directed. Warm compresses to the right upper extremity. Follow- up with the [place] clinic. Med/Other Pt SpecificInfo: Prescription(s) given Scripts Sulfamethoxazole-Trimethoprim (Bactrim DS) 800-160 Mg Tab 1 TAB PO BID for Infection, #14 TAB 0 Refills Prov: Eduard Landaverde MD 07/12/17 Disposition: 01 DISCHARGE HOME Condition: Stable Eduard Landaverde MD Jul 12, 2017 09:26
== END 2017-07-12 09:51 | disposition home or self-care (01) ==
LOC: NEPD 08:54
DX: I80.8 Phlebitis and thrombophlebitis of other sites (principal); I48.91 Unspecified atrial fibrillation; J44.9 Chronic obstructive pulmonary disease, unspecified; E11.9 Type 2 diabetes mellitus without complications; I10 Essential (primary) hypertension; Z79.01 Long term (current) use of anticoagulants
CPT/HCPCS: 99283

== ENCOUNTER 2017-08-04 09:49 | Emergency (ER) | payer MEDICARE, OTHER ==
[~2017-08-04 09:49] MED LIST changes: +BACT800T5 PO; -PRED20 PO
[2017-08-04 09:53] VITALS: BP 174/77; PULSE 76; RESP 18; TEMP 98; O2SAT 96
--- NOTE | 2017-08-04 10:15 | PD ---
HPI Chief Complaint: Nosebleed Time Seen by Provider: 09:52 Travel History International Travel<30 days: No Contact w/Intl Traveler<30days: No Traveled to known affect area: No History of Present Illness HPI 71-year-old male complains of nosebleed. Patient states that he started having right-sided nose bleed this morning. Patient has history of atrial fibrillation and on Pradaxa. Patient also has history hypertension. Patient states that his systolic blood pressure has been running around 160s. Patient goes [facility] problem. Patient is taking diltiazem CD 300 mg daily and terra Zosyn 1 g at bedtime. Patient denies any recent facial injury. Patient denies any history of nosebleeds in the past. Patient denies any headache. Patient denies any chest pain or shortness of breath. PFSH Past Medical History Hx Anticoagulant Therapy: Yes (PRADAXA) Arthritis: Yes (RA) Asthma: Yes High Cholesterol: Yes Congestive Heart Failure: Yes COPD: Yes Cerebrovascular Accident: Yes (TIA) Coronary Artery Disease: No Diabetes: Yes Patient Takes Glucophage: Yes Diminished Hearing: No Genitourinary: Yes ( enlarged prostate) Hypertension: Yes Respiratory: Yes (COPD) Immunizations Current: Yes Tetanus Vaccination: < 5 Years Past Surgical History Eye Surgery: Yes (BILAT CATARACT/LENS IMPLANT SURGERY) Other Surgery: Yes (CATARACTS AND LENS IMPLANTS) Social History Alcohol Use: No Tobacco Use: No (QUIT 09/18) Substance Use: No Allergies-Medications (Allergen,Severity, Reaction): Coded Allergies: No Known Allergies (Verified Adverse Reaction, Unknown, 08/04/17) Reported Meds & Prescriptions Reported Meds & Active Scripts Active Bactrim DS (Sulfamethoxazole-Trimethoprim) 800-160 Mg Tab 1 Tab PO BID Diltiazem CD 24 HR 300 Mg Caper 300 Mg PO DAILY Reported Methotrexate 2.5 Mg Tab 2.5 Mg PO Q7D Folic Acid 1 Mg Tablet 1 Mg PO DAILY Ferrous Sulfate 325 Mg (65 Mg Iron) Tablet 325 Mg PO BIDPC Albuterol Neb (Albuterol Sulfate) 0.63 Mg/3 Ml Neb 0.63 Mg NEB QID NEB PRN Pradaxa (Dabigatran) 150 Mg Cap 150 Mg PO BID Metformin (Metformin HCl) 1,000 Mg Tab 1,000 Mg PO BIDPC With meals Symbicort Inh (Budesonide/Formoterol Fumarate) Unknown Strength Aero 2 Puff INH Q12HR Terazosin (Terazosin HCl) 1 Mg Cap 1 Mg PO HS Pravastatin 40 Mg Tab 40 Mg PO DAILY Review of Systems General / Constitutional: No: Fever Eyes: No: Visual changes HENT: Positive: Nosebleed, No: Headaches Cardiovascular: No: Chest Pain or Discomfort Respiratory: No: Shortness of Breath Gastrointestinal: No: Abdominal Pain Genitourinary: No: Dysuria Musculoskeletal: No: Pain Skin: No Rash Neurologic: No: Weakness Psychiatric: No: Depression Endocrine: No: Polydipsia Hematologic/Lymphatic: No: Easy Bruising Physical Exam Narrative GENERAL: Well-nourished, well-developed patient. SKIN: Focused skin assessment warm/dry. HEAD: Normocephalic. EYES: No scleral icterus. No injection or drainage. Patient has a small amount of old blood in the right naris. No active bleeding. NECK: Supple, trachea midline. No JVD or lymphadenopathy. CARDIOVASCULAR: Regular rate and rhythm without murmurs, gallops, or rubs. RESPIRATORY: Breath sounds equal bilaterally. No accessory muscle use. GASTROINTESTINAL: Abdomen soft, non-tender, nondistended. MUSCULOSKELETAL: No cyanosis, or edema. BACK: Nontender without obvious deformity. No CVA tenderness. Neurologic exam normal. Data Data Last Documented VS Vital Signs Date Time Temp Pulse Resp B/P (MAP) Pulse Ox O2 Delivery O2 Flow Rate FiO2 08/04/17 09:53 98.0 76 18 174/77 (109) 96 MDM Medical Decision Making Medical Screen Exam Complete: Yes Emergency Medical Condition: Yes Differential Diagnosis Differential diagnosis including epistaxis, uncontrolled hypertension. Narrative Course 71-year-old male with epistaxis. Patient on Pradaxa. The bleeding stopped completely now. Patient has elevated blood pressure. Diagnosis Primary Impression: Epistaxis Additional Impression: Uncontrolled hypertension Patient Instructions: General Instructions Additional Instructions: Pressure to the nose if rebleeds. Continue with all medication. Lisinopril as directed. Follow-up with personal physician for blood pressure check. Return if persistent nosebleed. Med/Other Pt SpecificInfo: Prescription(s) given Scripts Lisinopril (Lisinopril) 10 Mg Tab 10 MG PO DAILY, #30 TAB 0 Refills Prov: Krishna Unger MD 08/04/17 Disposition: 01 DISCHARGE HOME Condition: Stable Krishna Unger MD Aug 04, 2017 10:15
[2017-08-04] MEDS ORDERED: LISI10TA3 PO (10:16)
[2017-08-04 10:44] VITALS: BP 169/78
== END 2017-08-04 10:44 | disposition home or self-care (01) ==
LOC: NEPD 09:49
DX: R04.0 Epistaxis (principal); I10 Essential (primary) hypertension; I48.91 Unspecified atrial fibrillation; M06.9 Rheumatoid arthritis, unspecified; J45.909 Unspecified asthma, uncomplicated; E78.00 Pure hypercholesterolemia, unspecified; E11.9 Type 2 diabetes mellitus without complications; J44.9 Chronic obstructive pulmonary disease, unspecified; Z79.01 Long term (current) use of anticoagulants
CPT/HCPCS: 99283

== ENCOUNTER 2017-08-08 06:52 | Observation (INO) | payer OTHER ==
[2017-08-08] VITALS (15 sets, daily range): BP systolic 143–194; BP diastolic 67–92; PULSE 76–101; RESP 16–21; TEMP 97.4–98.1; O2SAT 94–98
[~2017-08-08] VITALS: Ht 167.6 cm; Wt 88.0 kg
[~2017-08-08 06:52] MED LIST changes: +LISI10TA3 PO
[2017-08-08] MEDS ORDERED: MECLIZINE HCL 25 MG TAB PO ONE (07:15)
[2017-08-08] MEDS ORDERED: SODIUM CHLORIDE 0.9% FLUSH 10 ML FLUSH IVF PRN (07:15)
--- NOTE | 2017-08-08 07:18 | PD ---
HPI Chief Complaint: Dizziness Time Seen by Provider: 07:02 Travel History International Travel<30 days: No Contact w/Intl Traveler<30days: No Traveled to known affect area: No History of Present Illness HPI Patient is a 71 year old male who comes in complaining of an episode of double vision this morning. He says it came on while he was watching the news. He says it lasted about 1 minute. He says currently his symptoms have completely resolved other than a slight feeling of lightheadedness. He denies chest pain. He says he has chronic SOB due to his COPD. He denies any weakness. He denies headache or any recent falls. He denies fever or chills. He says he is worried because his doctor told him he had a TIA in the past. PFSH Past Medical History Hx Anticoagulant Therapy: Yes (PRADAXA) Arthritis: Yes (RA) Asthma: Yes High Cholesterol: Yes Congestive Heart Failure: Yes COPD: Yes Cerebrovascular Accident: Yes (TIA) Coronary Artery Disease: No Diabetes: Yes Patient Takes Glucophage: Yes (08/07/2017 1000) Diminished Hearing: No Genitourinary: Yes ( enlarged prostate) Hypertension: Yes Respiratory: Yes (COPD) Immunizations Current: Yes Tetanus Vaccination: < 5 Years Influenza Vaccination: Yes Past Surgical History Eye Surgery: Yes (BILAT CATARACT/LENS IMPLANT SURGERY) Other Surgery: Yes (CATARACTS AND LENS IMPLANTS) Social History Alcohol Use: No Tobacco Use: No (QUIT 09/18) Substance Use: No Allergies-Medications (Allergen,Severity, Reaction): Coded Allergies: No Known Allergies (Verified Adverse Reaction, Unknown, 08/04/17) Reported Meds & Prescriptions Reported Meds & Active Scripts Active Bactrim DS (Sulfamethoxazole-Trimethoprim) 800-160 Mg Tab 1 Tab PO BID Reported Tamsulosin (Tamsulosin HCl) 0.4 Mg Cap 0.4 Mg PO HS Bisoprolol (Bisoprolol Fumarate) 5 Mg Tab 2.5 Mg PO DAILY Atorvastatin (Atorvastatin Calcium) 80 Mg Tab 80 Mg PO HS Diltiazem CD 24 HR 120 Mg Caper 180 Mg PO DAILY Diclo Gel Topical (Diclofenac Sodium) 1% Gel 1 Applic TOPICAL QID Cyanocobalamin Inj (Cyanocobalamin) 1,000 Mcg/Ml Inj 1,000 Mcg IM Q30D Methotrexate 2.5 Mg Tab 2.5 Mg PO Q7D Folic Acid 1 Mg Tablet 1 Mg PO DAILY Albuterol Neb (Albuterol Sulfate) 0.63 Mg/3 Ml Neb 0.63 Mg NEB QID NEB PRN Pradaxa (Dabigatran) 150 Mg Cap 150 Mg PO BID Metformin (Metformin HCl) 1,000 Mg Tab 1,000 Mg PO BIDPC With meals Symbicort Inh (Budesonide/Formoterol Fumarate) Unknown Strength Aero 2 Puff INH Q12HR Terazosin (Terazosin HCl) 1 Mg Cap 1 Mg PO HS Review of Systems Except as stated in HPI: all other systems reviewed are Neg General / Constitutional: No: Fever, Chills Eyes: Positive: Diploplia HENT: Positive: Lightheadedness, No: Headaches Cardiovascular: No: Chest Pain or Discomfort Respiratory: No: Cough Gastrointestinal: No: Nausea, Vomiting, Abdominal Pain Musculoskeletal: No: Myalgias, Weakness, Edema Skin: No Rash, No Change in Pigmentation Neurologic: Positive: Dizziness, No: Weakness, Syncope Physical Exam Narrative GENERAL: Awake and alert, in no acute distress. SKIN: Focused skin assessment warm/dry. No wounds or signs of infection. HEAD: Atraumatic. Normocephalic. EYES: Pupils equal and round and reactive. No scleral icterus. Extraocular movements intact. Slow, extinguishing horizontal nystagmus. ENT: Mucous membranes pink and moist. NECK: Trachea midline. No JVD. CARDIOVASCULAR: Regular rate and rhythm. No murmur appreciated. RESPIRATORY: No accessory muscle use. Clear to auscultation. Breath sounds equal bilaterally. GASTROINTESTINAL: Abdomen soft, non-tender, nondistended. MUSCULOSKELETAL: No obvious deformities. No clubbing. No cyanosis. No edema. NEUROLOGICAL: Awake and alert. No obvious cranial nerve deficits. Weakness of the left leg. Strength is 5 out of 5 in the right leg, 3/5 in the left leg. No pronator drift, no sensory disturbance. Normal speech. PSYCHIATRIC: Appropriate mood and affect; insight and judgment normal. Data Data Last Documented VS Vital Signs Date Time Temp Pulse Resp B/P (MAP) Pulse Ox O2 Delivery O2 Flow Rate FiO2 08/08/17 08:37 84 16 172/77 (108) 97 Room Air 08/08/17 06:54 98.1 Orders Orders Electrocardiogram (08/08/17 07:09) Prothrombin Time / Inr (Pt) (08/08/17 07:09) Act Partial Throm Time (Ptt) (08/08/17 07:09) Complete Blood Count With Diff (08/08/17 07:09) Comprehensive Metabolic Panel (08/08/17 07:09) Creatine Kinase (Cpk) (08/08/17 07:09) Troponin I (08/08/17 07:09) Ct Brain W/O Iv Contrast(Rout) (08/08/17 07:09) Chest, Single Ap (08/08/17 07:09) Ecg Monitoring (08/08/17 07:09) Iv Access Insert/Monitor (08/08/17 07:09) Oximetry (08/08/17 07:09) Sodium Chloride 0.9% Flush (Ns Flush) (08/08/17 07:15) Meclizine (Antivert) (08/08/17 07:15) Mri Brain W/O Contrast (08/08/17 ) Mra Brain W/O Contrast (Cow) (08/08/17 ) Mra Carotids W Contrast (08/08/17 ) Aspirin (Aspirin) (08/08/17 09:45) Sodium Chlor 0.9% 1000 Ml Inj (Ns 1000 M (08/08/17 09:45) Admit Order (Ed Use Only) (08/08/17 ) Labs Laboratory Tests Test 08/08/17 07:15 White Blood Count 6.2 TH/MM3 Red Blood Count 4.01 MIL/MM3 Hemoglobin 11.9 GM/DL Hematocrit 36.5 % Mean Corpuscular Volume 91.2 FL Mean Corpuscular Hemoglobin 29.7 PG Mean Corpuscular Hemoglobin Concent 32.6 % Red Cell Distribution Width 17.1 % Platelet Count 342 TH/MM3 Mean Platelet Volume 7.6 FL Neutrophils (%) (Auto) 75.3 % Lymphocytes (%) (Auto) 13.9 % Monocytes (%) (Auto) 7.8 % Eosinophils (%) (Auto) 2.8 % Basophils (%) (Auto) 0.2 % Neutrophils # (Auto) 4.6 TH/MM3 Lymphocytes # (Auto) 0.9 TH/MM3 Monocytes # (Auto) 0.5 TH/MM3 Eosinophils # (Auto) 0.2 TH/MM3 Basophils # (Auto) 0.0 TH/MM3 CBC Comment DIFF FINAL Differential Comment Prothrombin Time 9.7 SEC Prothromb Time International Ratio 1.0 RATIO Activated Partial Thromboplast Time 27.3 SEC Blood Urea Nitrogen 19 MG/DL Creatinine 0.99 MG/DL Random Glucose 148 MG/DL Total Protein 7.5 GM/DL Albumin 3.5 GM/DL Calcium Level 9.2 MG/DL Alkaline Phosphatase 95 U/L Aspartate Amino Transf (AST/SGOT) 22 U/L Alanine Aminotransferase (ALT/SGPT) 30 U/L Total Bilirubin 0.3 MG/DL Sodium Level 137 MEQ/L Potassium Level 5.0 MEQ/L Chloride Level 107 MEQ/L Carbon Dioxide Level 22.7 MEQ/L Anion Gap 7 MEQ/L Estimat Glomerular Filtration Rate 75 ML/MIN Total Creatine Kinase 90 U/L Troponin I LESS THAN 0.02 NG/ML MDM Medical Decision Making Medical Screen Exam Complete: Yes Emergency Medical Condition: Yes Medical Record Reviewed: Yes Interpretation(s) ECG shows NSR with 1st degree AV block, at 85. No ST elevation or depression. Differential Diagnosis TIA versus stroke versus vertigo Narrative Course Patient is a 71-year-old male comes in complaining of an episode of double vision. Exam shows some left leg weakness. Patient states this is been going on for "a while." CT of the head performed shows possible old lacunar infarcts , no acute abnormalities. Labs show no acute abnormalities. I spoke with Dr. Wright of neurology who suggests MRI of the brain as well as MRA of the neck and brain. Patient given an aspirin and started on maintenance fluids. Patient will be admitted for further management. Dr. Wright suggests switching from Pradaxa to Eliquis. Patient did not take his Pradaxa today, so first dose was ordered for him. Diagnosis Primary Impression: TIA (transient ischemic attack) Qualified Codes: G45.9 - Transient cerebral ischemic attack, unspecified Admitting Information Admitting Physician Requests: Tish De Dios MD Aug 08, 2017 07:18
[2017-08-08 07:25] LABS: AUTOMATED NEUTROPHIL # 4.6 TH/MM3 (1.8-7.7); BASOPHIL % 0.2 % (0.0-2.0); EOSINOPHIL # 0.2 TH/MM3 (0-0.4); EOSINOPHIL % 2.8 % (0.0-4.0); HEMATOCRIT 36.5 % (39.0-51.0); HEMO FLAGS DIFF FINAL; LYMPH % 13.9 % (9.0-44.0); LYMPHOCYTE # 0.9 TH/MM3 (1.0-4.8); MEAN CELL VOLUME 91.2 FL (80.0-100.0); MEAN CORPUSCULAR HEMOGLOBIN 29.7 PG (27.0-34.0); MEAN CORPUSCULAR HGB CONC 32.6 % (32.0-36.0); MONO % 7.8 % (0.0-8.0); NEUT % 75.3 % (16.0-70.0); PLATELET COUNT 342 TH/MM3 (150-450); RED BLOOD COUNT 4.01 MIL/MM3 (4.50-5.90); RED CELL DISTRIBUTION WIDTH 17.1 % (11.6-17.2); WHITE BLOOD COUNT 6.2 TH/MM3 (4.0-11.0)
[2017-08-08] MEDS ORDERED: CYAN1000P IM (07:32)
[2017-08-08] MEDS ORDERED: DILT120C50 PO (07:32)
[2017-08-08] MEDS ORDERED: TAMS0.4C4 PO (07:32)
[2017-08-08] MEDS ORDERED: BISO5TAB5 PO (07:32)
[2017-08-08] MEDS ORDERED: DICL1KIT5 TOPICAL (07:32)
[2017-08-08] MEDS ORDERED: ATOR80TA45 PO (07:32)
[2017-08-08 07:34] LABS: APTT (PATIENT) 27.3 SEC (24.3-30.1); PROTHROMBIN TIME - PATIENT 9.7 SEC (9.8-11.6)
--- NOTE | 2017-08-08 07:36 | RADRPT ---
EXAM DATE/TIME: 08/08/2017 07:31 [facility] COMPARISON: CHEST SINGLE AP, May 13, 2017, 6:51. INDICATIONS : Shortness of breath. MEDICAL HISTORY : Chronic obstructive pulmonary disease. A-fib SURGICAL HISTORY : None. ENCOUNTER: Initial ACUITY: 1 day PAIN SCORE: 0/10 LOCATION: Bilateral chest FINDINGS: A single view of the chest demonstrates the lungs to be symmetrically aerated without evidence of mas s, infiltrate or effusion. The cardiomediastinal contours are unremarkable. Osseous structures are intact. CONCLUSION: Normal examination. Terry An MD on August 08, 2017 at 7:35 Board Certified Radiologist. This report was verified electronically.
[2017-08-08 07:48] LABS: ALKALINE PHOSPHATASE 95 U/L (45-117); ALT (GPT) 30 U/L (12-78); ANION GAP 7 MEQ/L (5-15); AST (GOT) 22 U/L (15-37); BICARBONATE 22.7 MEQ/L (21.0-32.0); BLOOD UREA NITROGEN 19 MG/DL (7-18); CHLORIDE 107 MEQ/L (98-107); GLOMERULAR FILTRATION RATE 75 ML/MIN (>89); SODIUM (NA) 137 MEQ/L (136-145); TOTAL BILIRUBIN ADULT 0.3 MG/DL (0.2-1.0)
[2017-08-08 08:04] LABS: CREATINE KINASE 90 U/L (39-308)
--- NOTE | 2017-08-08 09:12 | RADRPT ---
EXAM DATE/TIME: 08/08/2017 07:41 [facility] COMPARISON: CT BRAIN W/O CONTRAST, November 06, 2016, 0:03. INDICATIONS : Resolved episode of double vision and lightheadedness RADIATION DOSE: 56.35 CTDIvol (mGy) MEDICAL HISTORY : Chronic obstructive pulmonary disease. SURGICAL HISTORY : None. ENCOUNTER: Initial ACUITY: 1 day PAIN SCALE: 0/10 LOCATION: cranial TECHNIQUE: Multiple contiguous axial images were obtained of the head. Using automated exposure control and adj ustment of the mA and/or kV according to patient size, radiation dose was kept as low as reasonably a chievable to obtain optimal diagnostic quality images. DICOM format image data is available electro [facility] and clinically for review and comparison. FINDINGS: CEREBRUM: There is mild generalized atrophy. Stable low densities in the basal ganglia bilaterally may represen t old lacune's. There is periventricular white matter low attenuation. No evidence of midline shift, mass lesion, hemorrhage or acute infarction. No extra-axial fluid collections are seen. POSTERIOR FOSSA: The cerebellum and brainstem are intact. The 4th ventricle is midline. The cerebellopontine angle i s unremarkable. EXTRACRANIAL: Visualized sinuses are clear. SKULL: The calvaria is intact. No evidence of skull fracture. CONCLUSION: 1. Stable noncontrast head CT. No acute intracranial abnormality is identified. 2. Chronic changes include mild atrophy and chronic white matter changes. There are old lacunaes bila terally. Robbie Magallon MD on August 08, 2017 at 9:09 Board Certified Radiologist. This report was verified electronically.
[2017-08-08] MEDS ORDERED: ASPIRIN 325 MG TAB PO ONE (09:45)
[2017-08-08] MEDS ORDERED: SODIUM CHLOR 0.9% 1000 ML INJ 1,000 ML IV SCH ×2 (09:45→12:05)
[2017-08-08] MEDS ORDERED: GADODIAMIDE PF 287 MG/ML 20 ML VIAL (for RAD MRI) IVCONTRAST ONE (10:16)
[2017-08-08] MEDS ORDERED: SODIUM CHLORIDE 0.9% FLUSH 10 ML FLUSH IV FLUSH PRN (10:30)
[2017-08-08] MEDS ORDERED: ONDANSETRON HCL 4 MG/2 ML VIAL IVP PRN (10:30)
[2017-08-08] MEDS ORDERED: GLUCAGON 1 MG/ML VIAL OTHER PRN (10:30)
[2017-08-08] MEDS ORDERED: DEXTROSE 50% IN WATER 50 ML VIAL(D50) IV PUSH PRN (10:30)
[2017-08-08] MEDS ORDERED: ACETAMINOPHEN 325 MG TAB PO PRN (10:30)
[2017-08-08] MEDS ORDERED: METHOTREXATE 2.5 MG TAB PO SCH (10:45)
[2017-08-08] MEDS ORDERED: RESP: ALBUTEROL 2.5 MG/IPRATROPIUM 0.5 MG NEB (PRN) NEB (10:45)
--- NOTE | 2017-08-08 10:59 | HHI.HP ---
HPI Service [facility] Hospitalists Primary Care Physician [facility] Admission Diagnosis TIA Diagnoses: Chief Complaint: Double vision BLE weakness Travel History International Travel<30 Days: No Contact w/Intl Traveler <30 Da: No Traveled to Known Affected Are: No History of Present Illness This 71-year-old male with past medical history significant for atrial fibrillation on Pradaxa, hx of previous TIA, type 2 diabetes, hypertension, rheumatoid arthritis on methotrexate, dyslipidemia and BPH who presented to [facility] ED with complaints of double vision and bilateral lower extremity weakness 1 day. Patient states that he woke up without incident this morning began his regular routine making coffee and turning on the TV. As he went to sit down to watch TV he developed sudden onset of double vision and lightheadedness. Patient states when he got up to walk a few feet to the bathroom he noticed that both legs were weak. He states all of the symptoms resolved spontaneously after about a minute. He denies any associated palpitations, headache, tinnitus, dizziness, chest pain, nausea, vomiting or shortness of breath. He denies any facial droop or slurred speech but note patient lives alone. He denies any syncope/near syncope. Denies any loss of consciousness. He denies any bowel or bladder incontinence. Patient states he had a similar episode that happened a few months ago also lasting about a minute before resolving on its own. Patient states he feels back to his regular self and denies any complaints. In the ED, CT of the head was obtained which did not show any evidence of acute intracranial abnormality. Dr. Wright was contacted who recommended patient be admitted for TIA/stroke workup. She is not sure what his last hemoglobin A1c level was. He states his blood sugars typically run between 90 and 180 at home. The patient says that he had blurry vision and that concerned him. He said he had that symptom years ago and was told that it was a TIA. He currently says he is seeing normally. He does endorse some lightheadedness that happens from time to time at rest. He says it generally goes away after a few seconds. He denies any fever. He has been eating okay. Discussed with nursing at the bedside. Review of Systems Except as stated in HPI: all other systems reviewed are Neg Past Family Social History Past Medical History COPD History of TIA Diabetes type 2 BPH Hypertension Atrial fibrillation on Pradaxa Rheumatoid arthritis Asthma Dyslipidemia Past Surgical History Cataract surgery Reported Medications Bactrim DS (Sulfamethoxazole-Trimethoprim) 800-160 Mg Tab 1 Tab PO BID Tamsulosin (Tamsulosin HCl) 0.4 Mg Cap 0.4 Mg PO HS Bisoprolol (Bisoprolol Fumarate) 5 Mg Tab 2.5 Mg PO DAILY Atorvastatin (Atorvastatin Calcium) 80 Mg Tab 80 Mg PO HS Diltiazem CD 24 HR 120 Mg Caper 180 Mg PO DAILY Diclo Gel Topical (Diclofenac Sodium) 1% Gel 1 Applic TOPICAL QID Cyanocobalamin Inj (Cyanocobalamin) 1,000 Mcg/Ml Inj 1,000 Mcg IM Q30D Methotrexate 2.5 Mg Tab 2.5 Mg PO Q7D Folic Acid 1 Mg Tablet 1 Mg PO DAILY Albuterol Neb (Albuterol Sulfate) 0.63 Mg/3 Ml Neb 0.63 Mg NEB QID NEB PRN Pradaxa (Dabigatran) 150 Mg Cap 150 Mg PO BID Metformin (Metformin HCl) 1,000 Mg Tab 1,000 Mg PO BIDPC With meals Symbicort Inh (Budesonide/Formoterol Fumarate) Unknown Strength Aero 2 Puff INH Q12HR Terazosin (Terazosin HCl) 1 Mg Cap 1 Mg PO HS Allergies: Coded Allergies: No Known Allergies (Verified Adverse Reaction, Unknown, 08/04/17) Active Ordered Medications Current Medications Medications (Trade) Dose Ordered Sig/Veto Route Start Time Stop Time Status Last Admin (NS Flush) 2 ml UNSCH PRN IVF 08/08/17 07:15 Sodium Chloride 1,000 ml @ 70 mls/hr [id number] IV 08/08/17 09:45 08/08/17 10:02 (NS Flush) 2 ml UNSCH PRN IV FLUSH 08/08/17 10:30 UNV (Tylenol) 650 mg Q4H PRN PO 08/08/17 10:30 UNV (Zofran Inj) 4 mg Q6H PRN IVP 08/08/17 10:30 UNV (D50w (Vial) Inj) 50 ml UNSCH PRN IV PUSH 08/08/17 10:30 UNV (Glucagon Inj) 1 mg UNSCH PRN OTHER 08/08/17 10:30 UNV (NovoLOG SUPPLEMENTAL SCALE) 1 ACHS SLIDING SCALE SQ 08/08/17 12:00 UNV (Lipitor) 80 mg HS PO 08/08/17 21:00 UNV (Pradaxa) 150 mg BID PO 08/08/17 21:00 UNV (Folate) 1 mg DAILY PO 08/09/17 09:00 UNV (Rheumatrex) 2.5 mg Q7D PO 08/08/17 10:45 UNV (Flomax) 0.4 mg HS PO 08/08/17 21:00 UNV Non-Formulary Medication 2 puff Q12HR INH 08/08/17 21:00 UNV (Duoneb Neb) 1 ampule Q4HR NEB PRN NEB 08/08/17 10:45 UNV Family History Mother, , cancer age 84 Father, in middle age, diabetes and kidney disease Social History Patient has a history of smoking 2 packs per day for 50 years. Physical Exam Vital Signs Vital Signs Date Time Temp Pulse Resp B/P (MAP) Pulse Ox O2 Delivery O2 Flow Rate FiO2 08/08/17 10:17 76 18 150/75 (100) 98 Room Air 08/08/17 08:37 84 16 172/77 (108) 97 Room Air 08/08/17 07:14 97 Room Air 08/08/17 06:54 98.1 101 20 192/81 (118) 98 Physical Exam GENERAL: This is a well-nourished, well-developed patient, in no apparent distress. Awake and alert. Sitting up in hospital bed. Appears comfortable. No facial asymmetry appreciated. SKIN: No rashes, ecchymoses or lesions. Cool and dry. HEAD: Atraumatic. Normocephalic. No temporal or scalp tenderness. EYES: Pupils equal round and reactive. Extraocular motions intact. No scleral icterus. No injection or drainage. ENT: Nose without bleeding or purulent drainage. Throat without erythema, tonsillar hypertrophy or exudate. Uvula midline. Airway patent. NECK: Trachea midline. No JVD or lymphadenopathy. Supple, nontender, no meningeal signs. CARDIOVASCULAR: Regular rate and rhythm without murmurs, gallops, or rubs. RESPIRATORY: Clear to auscultation. Breath sounds equal bilaterally. No wheezes , rales, or rhonchi. GASTROINTESTINAL: Abdomen soft, non-tender, nondistended. No hepato-splenomegaly , or palpable masses. No guarding. MUSCULOSKELETAL: Extremities without clubbing, cyanosis, or edema. No joint tenderness, effusion, or edema noted. No calf tenderness. NEUROLOGICAL: Awake and alert. Cranial nerves II through XII grossly intact. Motor and sensory grossly within normal limits. Five out of 5 muscle strength in all muscle groups. No focal neurologic findings appreciated. Normal speech. Laboratory Laboratory Tests Test 08/08/17 07:15 White Blood Count 6.2 Red Blood Count 4.01 Hemoglobin 11.9 Hematocrit 36.5 Mean Corpuscular Volume 91.2 Mean Corpuscular Hemoglobin 29.7 Mean Corpuscular Hemoglobin Concent 32.6 Red Cell Distribution Width 17.1 Platelet Count 342 Mean Platelet Volume 7.6 Neutrophils (%) (Auto) 75.3 Lymphocytes (%) (Auto) 13.9 Monocytes (%) (Auto) 7.8 Eosinophils (%) (Auto) 2.8 Basophils (%) (Auto) 0.2 Neutrophils # (Auto) 4.6 Lymphocytes # (Auto) 0.9 Monocytes # (Auto) 0.5 Eosinophils # (Auto) 0.2 Basophils # (Auto) 0.0 CBC Comment DIFF FINAL Differential Comment Prothrombin Time 9.7 Prothromb Time International Ratio 1.0 Activated Partial Thromboplast Time 27.3 Blood Urea Nitrogen 19 Creatinine 0.99 Random Glucose 148 Total Protein 7.5 Albumin 3.5 Calcium Level 9.2 Alkaline Phosphatase 95 Aspartate Amino Transf (AST/SGOT) 22 Alanine Aminotransferase (ALT/SGPT) 30 Total Bilirubin 0.3 Sodium Level 137 Potassium Level 5.0 Chloride Level 107 Carbon Dioxide Level 22.7 Anion Gap 7 Estimat Glomerular Filtration Rate 75 Total Creatine Kinase 90 Troponin I LESS THAN 0.02 Result Diagram: 08/08/1771408/08/17714 Imaging Last Impressions Head CT 08/08/17708 Signed Impressions: Service Date/Time: August 07:41 - CONCLUSION: 1. Stable noncontrast head CT. No acute intracranial abnormality is identified. 2. Chronic changes include mild atrophy and chronic white matter changes. There are old lacunaes bilaterally. Robbie Magallon MD Chest X-Ray 08/08/17 0709 Signed Impressions: Service Date/Time: August 07:31 - CONCLUSION: Normal examination. Terry An MD Neck Magnetic Resonance Angiography 08/08/17 0000 Signed Impressions: Service Date/Time: August 10:34 - CONCLUSION: 1. No evidence of hemodynamic significant lesion. There is There is 20-30%% stenosis on the right and There is 10-20%% stenosis on the left. 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 Shade Gibbs MD Head Magnetic Resonance Angiography 08/08/17 0000 Signed Impressions: Service Date/Time: August 10:34 - CONCLUSION: 1. Right vertebral artery is not visualized. Suspect right vertebral artery terminates in PICA. An MRA of the carotids is already scheduled and this can be further evaluated on that exam. 2. Otherwise, unremarkable MRA examination of the brain. No significant large vessel occlusion or aneurysm. Foster Lucas MD Brain MRI 08/08/17 0000 Signed Impressions: Service Date/Time: August 10:34 - CONCLUSION: 1. No evidence of acute intracranial pathology. Chronic ischemic changes as above. MD Darlene Al VTE Risk Assessment Darlene VTE Risk Assessment: Mod/High Risk (score >= 2) Caprini Risk Assessment Model Point Value = 1 Point Value = 2 Point Value = 3 Point Value = 5 Age 41-60 Minor surgery BMI > 25 kg/m2 Swollen legs Varicose veins or History of unexplained or recurrent spontaneous Oral contraceptives or hormone replacement Sepsis (< 1 month) Serious lung disease, including pneumonia (< 1 month) Abnormal pulmonary function Acute myocardial infarction Congestive heart failure (< 1 month) History of inflammatory bowel disease Medical patient at bed rest Age 61-74 Arthroscopic surgery Major open surgery (> 45 min) Laparoscopic surgery (> 45 min) Malignancy Confined to bed (> 72 hours) Immobilizing plaster cast Central venous access Age >= 75 History of VTE Family history of VTE Factor V Leiden Prothrombin [id number] Lupus anticoagulant Anticardiolipin antibodies Elevated serum homocysteine Heparin-induced thrombocytopenia Other congenital or acquired thrombophilia Stroke (< 1 month) Elective arthroplasty Hip, pelvis, or leg fracture Acute spinal cord injury (< 1 month) Prophylaxis Regimen Total Risk Factor Score Risk Level Prophylaxis Regimen 0-1 Low Early ambulation 2 Moderate Order ONE of the following: *Sequential Compression Device (SCD) *Heparin 5000 units SQ BID 3-4 Higher Order ONE of the following medications: *Heparin 5000 units SQ TID *Enoxaparin/Lovenox 40 mg SQ daily (WT < 150 kg, CrCl > 30 mL/min) *Enoxaparin/Lovenox 30 mg SQ daily (WT < 150 kg, CrCl > 10-29 mL/min) *Enoxaparin/Lovenox 30 mg SQ BID (WT < 150 kg, CrCl > 30 mL/min) AND/OR *Sequential Compression Device (SCD) 5 or more Highest Order ONE of the following medications: *Heparin 5000 units SQ TID (Preferred with Epidurals) *Enoxaparin/Lovenox 40 mg SQ daily (WT < 150 kg, CrCl > 30 mL/min) *Enoxaparin/Lovenox 30 mg SQ daily (WT < 150 kg, CrCl > 10-29 mL/min) *Enoxaparin/Lovenox 30 mg SQ BID (WT < 150 kg, CrCl > 30 mL/min) AND *Sequential Compression Device (SCD) Assessment and Plan Assessment and Plan 71-year-old male with past medical history significant for atrial fibrillation on Pradaxa, hx of previous TIA, type 2 diabetes, hypertension, rheumatoid arthritis on methotrexate, dyslipidemia and BPH who presented to [facility] ED with complaints of double vision and bilateral lower extremity weakness 1 day. TIA/CVA -CT head no acute intracranial abnormality identified, images personally reviewed -Consult neurology, appreciate recommendations -Continuous cardiac monitoring -Obtain echocardiogram -MRI/MRA ordered -Carotid Doppler ultrasound ordered -PT/OT/ST -Allow permissive hypertension -Aspirin daily -Continue patient's home dose of statin therapy Lipitor 80 mg daily -Obtain lipid panel, hemoglobin A1c, TSH -Neuro checks every 4h -Fall and seizure precautions Appreciate neurology consultation. Resume home blood pressure medications at this point. Vasotec as needed. Echocardiogram pending. Apparently the patient did well with physical therapy. Atrial fibrillation -Rate controlled -continue on home dose of Pradaxa -Continue on home dose of diltiazem 180mg daily and Bisoprolol 2.5mg daily -continue to monitor HR Pradaxa switched Eliquis per neurology recommendation. Continue home diltiazem. Hypertension, uncontrolled -Elevated at admission 192/81. Improved 150/75 -Allow permissive hypertension -Vasotec 1.25 mg IV when necessary SBP greater than 220 -Continue to monitor blood pressure DC IV fluids. Resume home medications. Vasotec as needed. Diabetes, type II -Hold patient's home dose of metformin -Obtain hemoglobin A1c -Accu-Cheks -Insulin sliding scale -Heart healthy diabetic diet COPD, not in acute exacerbation -Resume home Symbicort -Supplemental oxygen as needed to maintain O2 sats above 92% -DuoNeb's as needed Rheumatoid arthritis -Resume home dose of methotrexate 2.5mg po q7days - patient states his next dose is due on Saturday BPH -Resume home dose of tamsulosin 0.4 mg daily DVT prophylaxis -Bilateral SCD/DAELA hose -Patient is on Pradaxa Discussed Condition With Patient, Dr. Moran Attending Statement The exam, history, and the medical decision-making described in the above note were completed with the assistance of the mid-level provider. I reviewed and agree with the findings presented. I attest that I had a [id number] encounter with the patient on the same day, and personally performed and documented my assessment and findings in the medical record. Zaida Gibson Aug 08, 2017 10:59 Jose Moran DO Aug 08, 2017 17:28
--- NOTE | 2017-08-08 11:17 | RADRPT ---
EXAM DATE/TIME: 08/08/2017 10:34 [facility] COMPARISON: No previous studies available for comparison. INDICATIONS : Double vision with lower extremity weakness. MEDICAL HISTORY : Hypercholesterolemia. Diabetes mellitus type 2. Hypertension. COPD; Afib SURGICAL HISTORY : bilateral cataract ENCOUNTER: Initial ACUITY: 1 day PAIN SCORE: 0/10 LOCATION: cranial Please note a normal MRA of the brain does not entirely exclude the possibility of a small aneurysm, nor the possibility of distal intracranial vessel disease. TECHNIQUE: 3D time of flight MRA was performed. Source images, multiplanar STS MIP, and 3D volume MIP reconstru ctions were reviewed. FINDINGS: Examination is somewhat limited due to motion artifact. Anterior circulation: Distal intracranial internal carotid arteries are patent with flow extending to the middle and anteri or cerebral arteries. There is no evidence for aneurysm, vessel truncation or stenosis, and no eviden ce for vascular malformation. Posterior circulation: The right vertebral artery is not visualized. Suspect the right vertebral artery terminates in PICA. Left artery is widely patent with flow extending to the basilar artery. Basilar artery is patent. The re is no evidence for aneurysm, vessel truncation or stenosis, and no evidence for vascular malformat ion. CONCLUSION: 1. Right vertebral artery is not visualized. Suspect right vertebral artery terminates in PICA. An MR A of the carotids is already scheduled and this can be further evaluated on that exam. 2. Otherwise, unremarkable MRA examination of the brain. No significant large vessel occlusion or ane urysm. Foster Lucas MD on August 08, 2017 at 11:10 Board Certified Radiologist. This report was verified electronically.
[2017-08-08] MEDS ORDERED: APIXABAN 5 MG TABLET PO ONE (11:45)
--- NOTE | 2017-08-08 11:58 | RADRPT ---
EXAM DATE/TIME: 08/08/2017 10:34 [facility] COMPARISON: No previous studies available for comparison. INDICATIONS : Double vision with lower extremity weakness. MEDICAL HISTORY : Hypercholesterolemia. Hypertension. Diabetes mellitus type 2. COPD, A fib SURGICAL HISTORY : Bilateral cataracts ENCOUNTER: Initial ACUITY: 1 day PAIN SCORE: 0/10 LOCATION: cranial TECHNIQUE: Multiplanar, multisequence MRI of the brain was performed without contrast. FINDINGS: MRI of the brain is performed in sagittal, axial and coronal planes. The craniocervical junction and midline structures are unremarkable with the exception of focal area of thinning . Diffusion weighted images demonstrate no abnormality. There is no evidence of acute cortical infarction, acute hemorrha ge, mass effect or midline shift is seen. There is periventricular hyperintensity on the T2 weighted images consistent with small vessel vascular disease slightly more than expected in a patient of this age. Posterior fossa structures are unremarkable. CONCLUSION: 1. No evidence of acute intracranial pathology. Chronic ischemic changes as above. Shade Gibbs MD on August 08, 2017 at 11:23 Board Certified Radiologist. This report was verified electronically.
[2017-08-08] MEDS: INSULIN ASPART SUPPLEMENTAL SCALE SQ SCH ×3 (12:00→21:00)
--- NOTE | 2017-08-08 12:06 | RADRPT ---
EXAM DATE/TIME: 08/08/2017 10:34 [facility] COMPARISON: No previous studies available for comparison. INDICATIONS : Double vision with lower extremity weakness. CONTRAST: 20 cc Omniscan (gadodiamide) IV MEDICAL HISTORY : Hypercholesterolemia. Diabetes mellitus type 2. Hypertension. COPD, A fib SURGICAL HISTORY : Bilateral cataract ENCOUNTER: Initial ACUITY: 1 day PAIN SCORE: 0/10 LOCATION: cranial Percent stenosis is calculated using the diameter of the stenotic region over the diameter of the nor mal distal internal carotid artery. TECHNIQUE: Bolus infused MRA of the extracranial circulation was performed using a neurovascular coil. Post pro cessing was performed including rotating subvolume maximum intensity projections of each carotid melissa ry, rotating full volume maximum intensity projections of both carotid arteries, sagittal and coronal sliding thin slab reformations of each carotid artery, and left oblique sliding thin slab reformatio n through the aortic arch to include the origin of the arch branch vessels. FINDINGS: Percent stenosis is calculated using the diameter of the stenotic region over the diameter of the nor mal distal internal carotid artery. No abnormality is identified within the lung apices. There is normal origin of vessels from the arch with 50-60% stenosis at the origin of the brachiocephalic artery. The left vertebral artery is domina nt. Examination of the right common carotid artery demonstrates the vessel to be widely patent. There is 20-30% stenosis at the origin of the right internal carotid artery. More distally the cervical mechanical engineering intern al carotid artery is intact. Examination of the left common carotid artery demonstrates the vessel to be widely patent. There is 1 0-20% stenosis at the origin of the left internal carotid artery. More distally the cervical internal carotid artery is intact. CONCLUSION: 1. No evidence of hemodynamic significant lesion. There is There is 20-30% stenosis on the right and There is 10-20% stenosis on the left. 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 Shade Gibbs MD on August 08, 2017 at 11:56 Board Certified Radiologist. This report was verified electronically.
--- NOTE | 2017-08-08 13:04 | MB ---
cc: BENNETTMUNDO DATE OF CONSULTATION 08/08/2017 REASON FOR CONSULTATION This is a 71-year-old right-handed man with a history of hypertension, non-insulin diabetes, hypercholesterolemia, CHF, A. fib on Pradaxa which he every day twice a day and has not missed any doses, COPD, stroke in the past, A doctor told him he had a stroke, but he never had any symptoms of a stroke. Nevertheless, today for about seven seconds, he had double vision and then it seemed to go away. No headache with it, chest pain or palpitations. REVIEW OF SYSTEMS He denies any CABG, stent, GA, renal, hepatic disease, thyroid disease lupus, ulcer cancer, seizure. He has no trouble swallowing. SOCIAL HISTORY He quit smoking in September. He is not a drinker. He lives by himself. FAMILY HISTORY Negative for cancer, seizure or stroke. Positive for MS in his sister. MEDICATIONS He takes: 1. Pradaxa 150 mg twice a day 2. Terazosin 3. Symbicort 4. Metformin 5. Folic acid 6. Methotrexate 7. B12 injections 8. Diltiazem 9. Atorvastatin 10. Bisoprolol 11. Tamsulosin 12. Bactrim ALLERGIES No KNOWN DRUG ALLERGIES. PHYSICAL EXAM On exam, afebrile, pulse 101, 20, 150/75 to 192/81. NECK: There are no carotid bruits. HEART: Regular rhythm. I did not detect a murmur. NEUROLOGIC: Pupils are equal. Visual denis are full. Extraocular movements are intact without nystagmus. He has never had a lazy eye. There is no double vision at this time. Face is symmetric with normal sensation. Tongue was midline. There is no drift. He had normal strength in the upper and lower extremities bilaterally including the left lower extremity. DTRs are trace throughout. Toes are downgoing bilaterally. Pinprick was intact throughout. He is not ataxic on [id number]. Speech is fluent. He is not aphasic. Temples were nontender bilaterally. LABORATORY DATA CBC is normal. Basic metabolic profile is essentially normal. LFTs are normal. Troponin is negative. Albumin is normal. Coags are normal. CT scan of the brain shows some white matter changes bilaterally and some mild lacunar infarcts. 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 MRA [place], he was left vertebral dominant. MRA of the [place] shows the basilar artery was normal as was the left vertebral artery dominant without stenosis distally. MRA of the neck, the carotid arteries look fine. He is left vertebral dominant and it comes up here and the right vertebral is small throughout its course may end in plica it is hard to say. No occipital infarctions are noted. IMPRESSION I think overall he looks well neurologically. He has been taking the Pradaxa and it looks like he may have had a stroke in the last two months in the right parietal region and now possibly a TIA with the double vision. We will check a sed rate on him, an echo and I would recommend switching him to Eliquis from Pradaxa now and I did notify the ER doctor of this. He should get a stat dose of Eliquis which it appears he already did and if his echo is normal and his sed rate is negative, he could be discharged. It is okay to get his blood pressure under control. MD ANUJA Goodman/VALENTINE /11:58 AM /12:38 PM
[2017-08-08 14:19] LABS: BLOOD, URINE NEG (NEG); COMMENT (UR) CULT NOT INDICATED; CULTURE IF INDICATED CULT NOT INDICATED; GLUCOSE,URINE NEG (NEG); KETONE, URINE NEG (NEG); MUCUS URINE FEW /lpf (OCC); NITRITE,URINE NEG (NEG); URINE COLOR LIGHT-YELLOW (YELLW/STRAW)
--- NOTE | 2017-08-08 16:09 | EKG ---
Date Performed: 08/08/2017 Time Performed: 07:20:58 PTAGE: 71 years EKG: Sinus rhythm WITH FIRST DEGREE AV BLOCK ABNORMAL ECG Since PREVIOUS TRACING , no significant change noted PREVIOUS TRACIN12/23/2016 11.08 DOCTOR: Michael Alves Interpretating Date/Time 08/08/2017 16:08:25
[2017-08-08] MEDS ORDERED: ENALAPRILAT 1.25 MG/ML VIAL IV PUSH PRN (17:30)
[2017-08-08] MEDS ORDERED: PILL SPLITTER OTHER PRN (17:45)
[2017-08-08 18:19] LABS: MAGNESIUM 1.9 MG/DL (1.5-2.5)
[2017-08-08] MEDS: BISOPROLOL FUMARATE 5 MG TAB PO SCH (20:02)
[2017-08-08] MEDS: DILTIAZEM-CD 180 MG CAP ER PO SCH (20:02)
[2017-08-08] MEDS: APIXABAN 5 MG TABLET PO SCH (20:18)
[2017-08-08] MEDS ORDERED: TERAZOSIN HCL 1 MG CAP PO SCH (21:00)
[2017-08-08] MEDS ORDERED: DABIGATRAN ETEXILATE 150 MG CAP PO SCH (21:00)
[2017-08-08] MEDS ORDERED: ATORVASTATIN 80 MG TAB PO SCH (21:00)
[2017-08-08] MEDS ORDERED: BUDESONIDE FORMOTEROL INH SCH (21:00)
[2017-08-08] MEDS ORDERED: TAMSULOSIN HCL 0.4 MG CAP PO SCH (21:00)
--- NOTE | 2017-08-08 21:21 | EKG ---
Date Performed: 08/08/2017 Time Performed: 16:42:06 PTAGE: 71 years EKG: Sinus rhythm WITH FIRST DEGREE AV BLOCK ABNORMAL ECG No significant change from prior electrocardiogram. PREVIOUS TRACING : 08/08/2017 07.20 DOCTOR: Faizan Murillo Interpretating Date/Time 08/08/2017 21:21:15
[2017-08-08] MEDS: BUDESONIDE-FORMOTEROL 160/4.5 MCG INHALER INH SCH (22:11)
[2017-08-08 22:16] LABS: HEMOGLOBIN A1b 2.2 %; HEMOGLOBIN Ao 82.7 %; HEMOGLOBIN LA1C 2.3 %; HEMOGLOBIN P3 5.7 %
[2017-08-09] VITALS (7 sets, daily range): BP systolic 133–177; BP diastolic 61–78; PULSE 64–76; RESP 16–22; TEMP 96.4–97.9; O2SAT 94–99
--- NOTE | 2017-08-09 07:01 | HHI.PR ---
Subjective Remarks no new spells dipolpia Objective Vital Signs Date Time Temp Pulse Resp B/P (MAP) Pulse Ox O2 Delivery O2 Flow Rate FiO2 08/09/17 06:08 97.8 71 20 162/74 (103) 95 138/67 (90) 145/70 (95) 08/09/17 04:19 97.7 76 22 147/65 (92) 98 08/09/17 02:10 97.9 74 18 144/65 (91) 94 08/09/17 00:18 97.9 64 18 133/61 (85) 96 08/09/17 00:05 65 08/08/17 22:15 98.1 76 20 143/67 (92) 97 08/08/17 20:58 98 21 08/08/17 20:50 97.4 83 20 179/86 (117) 98 08/08/17 20:05 85 08/08/17 19:18 97.7 90 20 180/92 (121) 94 08/08/17 17:41 85 08/08/17 17:37 98.1 83 20 186/81 (116) 97 08/08/17 16:44 98.0 86 20 194/86 (122) 97 08/08/17 15:28 97.7 88 21 181/84 (116) 98 08/08/17 13:57 08/08/17 13:00 78 18 183/85 (117) 98 Room Air 08/08/17 12:00 77 18 171/85 (113) 97 Room Air 08/08/17 10:17 76 18 150/75 (100) 98 Room Air 08/08/17 08:37 84 16 172/77 (108) 97 Room Air 08/08/17 07:14 97 Room Air I/O 08/08/17 08/08/17 08/08/17 08/09/17 08/09/17 08/09/17 07:00 15:00 23:00 07:00 15:00 23:00 Output Total 200 ml 1950 ml Balance -200 ml -1950 ml Output Urine Total 200 ml 1950 ml # Voids 1 Result Diagram: 08/08/1715 08/08/17 0715 Objective Remarks hallpike neg temples non tender bilat Assessment and Plan Assessment and Plan imp esr ok and echo pend if echo neg could dc on eliquis possible tia and recent cva also asx Shade Wright MD Aug 09, 2017 07:01
[2017-08-09 07:05] LABS: AUTOMATED NEUTROPHIL # 3.4 TH/MM3 (1.8-7.7); BASOPHIL % 0.4 % (0.0-2.0); EOSINOPHIL # 0.1 TH/MM3 (0-0.4); EOSINOPHIL % 2.8 % (0.0-4.0); HEMATOCRIT 32.5 % (39.0-51.0); HEMO FLAGS DIFF FINAL; LYMPH % 14.4 % (9.0-44.0); LYMPHOCYTE # 0.7 TH/MM3 (1.0-4.8); MEAN CELL VOLUME 91.1 FL (80.0-100.0); MEAN CORPUSCULAR HEMOGLOBIN 30.6 PG (27.0-34.0); MEAN CORPUSCULAR HGB CONC 33.6 % (32.0-36.0); MONO % 10.2 % (0.0-8.0); NEUT % 72.2 % (16.0-70.0); PLATELET COUNT 302 TH/MM3 (150-450); RED BLOOD COUNT 3.57 MIL/MM3 (4.50-5.90); RED CELL DISTRIBUTION WIDTH 17.1 % (11.6-17.2); WHITE BLOOD COUNT 4.7 TH/MM3 (4.0-11.0)
[2017-08-09 07:12] LABS: PROTHROMBIN TIME - PATIENT 10.4 SEC (9.8-11.6)
[2017-08-09 07:27] LABS: ANION GAP 7 MEQ/L (5-15); AST (GOT) 14 U/L (15-37); BICARBONATE 25.5 MEQ/L (21.0-32.0); BLOOD UREA NITROGEN 18 MG/DL (7-18); CHLORIDE 105 MEQ/L (98-107); GLOMERULAR FILTRATION RATE 83 ML/MIN (>89); POTASSIUM 4.3 MEQ/L (3.5-5.1); SODIUM (NA) 137 MEQ/L (136-145)
[2017-08-09 07:31] LABS: ALKALINE PHOSPHATASE 79 U/L (45-117); ALT (GPT) 21 U/L (12-78); HDL CHOLESTEROL 47.3 MG/DL (40.0-60.0); LDL CHOLESTEROL 116 MG/DL (0-99); TOTAL BILIRUBIN ADULT 0.4 MG/DL (0.2-1.0)
--- NOTE | 2017-08-09 08:00 | HHI.PR ---
Subjective Remarks Follow-up on patient with TIA. Patient seen and examined. Patient states he feels well. He denies any complaints. Denies any recurrence of double vision or weakness. Denies any headache, dizziness or lightheadedness. Denies any chest pain, palpitations or shortness of breath. Denies any, vomiting or abdominal pain. Denies any bowel or bladder difficulties. Objective Vitals Vital Signs Date Time Temp Pulse Resp B/P (MAP) Pulse Ox O2 Delivery O2 Flow Rate FiO2 08/09/17 06:08 97.8 71 20 162/74 (103) 95 138/67 (90) 145/70 (95) 08/09/17 04:19 97.7 76 22 147/65 (92) 98 08/09/17 02:10 97.9 74 18 144/65 (91) 94 08/09/17 00:18 97.9 64 18 133/61 (85) 96 08/09/17 00:05 65 08/08/17 22:15 98.1 76 20 143/67 (92) 97 08/08/17 20:58 98 21 08/08/17 20:50 97.4 83 20 179/86 (117) 98 08/08/17 20:05 85 08/08/17 19:18 97.7 90 20 180/92 (121) 94 08/08/17 17:41 85 08/08/17 17:37 98.1 83 20 186/81 (116) 97 08/08/17 16:44 98.0 86 20 194/86 (122) 97 08/08/17 15:28 97.7 88 21 181/84 (116) 98 08/08/17 13:57 08/08/17 13:00 78 18 183/85 (117) 98 Room Air 08/08/17 12:00 77 18 171/85 (113) 97 Room Air 08/08/17 10:17 76 18 150/75 (100) 98 Room Air 08/08/17 08:37 84 16 172/77 (108) 97 Room Air I/O 08/08/17 08/08/17 08/08/17 08/09/17 08/09/17 08/09/17 07:00 15:00 23:00 07:00 15:00 23:00 Output Total 200 ml 1950 ml Balance -200 ml -1950 ml Output Urine Total 200 ml 1950 ml # Voids 1 Result Diagram: 08/09/1762908/09/17629 Imaging Last Impressions Head CT 08/08/17708 Signed Impressions: Service Date/Time: August 07:41 - CONCLUSION: 1. Stable noncontrast head CT. No acute intracranial abnormality is identified. 2. Chronic changes include mild atrophy and chronic white matter changes. There are old lacunaes bilaterally. Robbie Magallon MD Chest X-Ray 08/08/17708 Signed Impressions: Service Date/Time: August 07:31 - CONCLUSION: Normal examination. Terry An MD Neck Magnetic Resonance Angiography 08/08/17 Signed Impressions: Service Date/Time: August 10:34 - CONCLUSION: 1. No evidence of hemodynamic significant lesion. There is There is 20-30%% stenosis on the right and There is 10-20%% stenosis on the left. 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 Shade Gibbs MD Head Magnetic Resonance Angiography 08/08/17 Signed Impressions: Service Date/Time: August 10:34 - CONCLUSION: 1. Right vertebral artery is not visualized. Suspect right vertebral artery terminates in PICA. An MRA of the carotids is already scheduled and this can be further evaluated on that exam. 2. Otherwise, unremarkable MRA examination of the brain. No significant large vessel occlusion or aneurysm. Foster Lucas MD Brain MRI 08/08/17 Signed Impressions: Service Date/Time: August 10:34 - CONCLUSION: 1. No evidence of acute intracranial pathology. Chronic ischemic changes as above. Shade Gibbs MD Objective Remarks GENERAL: This is a well-nourished, well-developed patient, in no apparent distress. Awake and alert. Patient sitting on side of bed eating breakfast. HEAD: Atraumatic. Normocephalic. No facial asymmetry noted. EYES: Extraocular motions intact. No scleral icterus. No injection or drainage. ENT: Nose without bleeding or purulent drainage. Airway patent. MMM. NECK: Trachea midline. CARDIOVASCULAR: Regular rate and rhythm without murmurs, gallops, or rubs. RESPIRATORY: Clear to auscultation. Breath sounds equal bilaterally. No wheezes , rales, or rhonchi. GASTROINTESTINAL: Abdomen soft, non-tender, nondistended. No hepato-splenomegaly , or palpable masses. No guarding. MUSCULOSKELETAL: Extremities without clubbing, cyanosis, or edema. NEUROLOGICAL: Awake and alert. Motor and sensory grossly within normal limits. Five out of 5 muscle strength in all muscle groups. No focal neurologic findings appreciated. Normal speech. Medications and IVs Current Medications Medications (Trade) Dose Ordered Sig/Veto Route Start Time Stop Time Status Last Admin (NS Flush) 2 ml UNSCH PRN IVF 08/08/17 07:15 (NS Flush) 2 ml UNSCH PRN IV FLUSH 08/08/17 10:30 (Tylenol) 650 mg Q4H PRN PO 08/08/17 10:30 (Zofran Inj) 4 mg Q6H PRN IVP 08/08/17 10:30 (D50w (Vial) Inj) 50 ml UNSCH PRN IV PUSH 08/08/17 10:30 (Glucagon Inj) 1 mg UNSCH PRN OTHER 08/08/17 10:30 (NovoLOG SUPPLEMENTAL SCALE) 1 ACHS SLIDING SCALE SQ 08/08/17 12:00 08/08/17 17:00 (Lipitor) 80 mg HS PO 08/08/17 21:00 08/08/17 20:18 (Folate) 1 mg DAILY PO 08/09/17 09:00 (Rheumatrex) 2.5 mg Q7D PO 08/08/17 10:45 Future hold (Flomax) 0.4 mg HS PO 08/08/17 21:00 08/08/17 20:18 (Duoneb Neb) 1 ampule Q4HR NEB PRN NEB 08/08/17 10:45 (Eliquis) 5 mg BID PO 08/08/17 21:00 08/08/17 20:18 (Vasotec Inj) 1.25 mg Q6H PRN IV PUSH 08/08/17 17:30 (Hytrin) 1 mg HS PO 08/08/17 21:00 08/08/17 20:18 (Zebeta) 2.5 mg DAILY PO 08/08/17 17:45 08/08/17 20:02 (Cardizem Cd) 180 mg DAILY PO 08/08/17 18:00 08/08/17 20:02 (Pill Splitter) 1 ea UNSCH PRN OTHER 08/08/17 17:45 (Symbicort 160-4.5 Mcg Inh) 1 puff Q12HR INH 08/08/17 21:00 08/08/17 22:11 A/P Assessment and Plan 71-year-old male with past medical history significant for atrial fibrillation on Pradaxa, hx of previous TIA, type 2 diabetes, hypertension, rheumatoid arthritis on methotrexate, dyslipidemia and BPH who presented to [facility] ED with complaints of double vision and bilateral lower extremity weakness 1 day. TIA/CVA -CT head no acute intracranial abnormality identified, images personally reviewed -Consult neurology, appreciate recommendations. Patient's Pradaxa discontinued. Started on Eliquis 5 mg twice a day. -Continuous cardiac monitoring -Echocardiogram unremarkable -MRI/MRA brain unremarkable -MRA neck showing 20-30% stenosis on the right and 10-20% stenosis on the left. 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 -ESR ok -PT/OT/ST eval completed with no home recommendations needed -Continue patient's home dose of statin therapy Lipitor 80 mg daily -lipid panel TG 108, Chol 185, LDL 116, hemoglobin A1c 6.9, TSH 1.950 -Neuro checks every 4h -Fall and seizure precautions Appreciate neurology consultation. Resume home blood pressure medications at this point. Vasotec as needed. Echocardiogram pending. Apparently the patient did well with physical therapy. Atrial fibrillation -Rate controlled -Pradaxa discontinued and started on Eliquis per neurology -Continue on home dose of diltiazem 180mg daily and Bisoprolol 2.5mg daily -continue to monitor HR Pradaxa switched Eliquis per neurology recommendation. Continue home diltiazem. Hypertension, uncontrolled -Elevated at admission 192/81. -BP still not optimized. Continue above medications. Add lisinopril 10 mg daily. -Vasotec 1.25 mg IV when necessary SBP greater than 220 -Continue to monitor blood pressure DC IV fluids. Resume home medications. Vasotec as needed. Diabetes, type II -Hold patient's home dose of metformin -hemoglobin A1c 6.9 -Accu-Cheks -Insulin sliding scale -Heart healthy diabetic diet COPD, not in acute exacerbation -Continue home Symbicort -Supplemental oxygen as needed to maintain O2 sats above 92% -DuoNeb's as needed Vitamin D deficiency -Vitamin D level 23.7 -begin Vitamin D supplementation Rheumatoid arthritis -Continue home dose of methotrexate 2.5mg po q7days - patient states his next dose is due on Saturday BPH -Continue home dose of tamsulosin 0.4 mg daily DVT prophylaxis -Bilateral SCD/ADELA hose -Patient is on Eliquis Discussed with patient, nursing staff and Dr. Moran Discharge patient to home Condition on discharge: Improved Heart healthy diabetic Diet as tolerated Ad Ana activity Rx written: Eliquis 5mg BID, Vitamin D supplementation, Lisinopril 10mg daily Follow-up with primary care physician and neurology in one week Discharge Planning Likely discharge later today pending echocardiogram results Zaida Gibson Aug 09, 2017 08:00
[2017-08-09] MEDS ORDERED: ERGO2000 PO (08:07)
[2017-08-09] MEDS ORDERED: APIX5TAB PO (08:07)
[2017-08-09] MEDS ORDERED: ATOR80TA45 PO (08:07)
--- NOTE | 2017-08-09 08:11 | HHI.DCPOC ---
Discharge Care Plan Diagnosis: (1) HTN (hypertension) (2) A-fib (3) Elevated blood pressure reading with diagnosis of hypertension (4) TIA (transient ischemic attack) Goals to Promote Your Health * To prevent worsening of your condition and complications * To maintain your health at the optimal level Directions to Meet Your Goals Take your medications as prescribed Follow your dietary instruction Follow activity as directed Keep your appointments as scheduled Take your immunizations and boosters as scheduled If your symptoms worsen call your PCP, if no PCP go to Urgent Care Center or Emergency Room Smoking is Dangerous to Your Health. Avoid second hand smoke Call the 24-hour hour crisis hotline for domestic abuse at Zaida Gibson Aug 09, 2017 08:11
[2017-08-09] MEDS: BISOPROLOL FUMARATE 5 MG TAB PO SCH (08:47)
[2017-08-09] MEDS: INSULIN ASPART SUPPLEMENTAL SCALE SQ SCH ×2 (08:47→12:00)
[2017-08-09] MEDS: DILTIAZEM-CD 180 MG CAP ER PO SCH (08:47)
[2017-08-09] MEDS: BUDESONIDE-FORMOTEROL 160/4.5 MCG INHALER INH SCH (08:47)
[2017-08-09] MEDS: APIXABAN 5 MG TABLET PO SCH (08:48)
[2017-08-09] MEDS ORDERED: FOLIC ACID 1 MG TAB PO SCH (09:00)
[2017-08-09] MEDS ORDERED: DILTIAZEM-CD 180 MG CAP ER PO SCH (09:00)
[2017-08-09] MEDS ORDERED: CHOLECALCIFEROL (VIT D3) 1000 UNIT TAB PO SCH (09:00)
[2017-08-09] MEDS ORDERED: LISI10TA3 PO (12:34)
[2017-08-09] MEDS ORDERED: LISINOPRIL 10 MG TAB PO ONE (13:00)
--- NOTE | 2017-08-09 13:46 | ECHRPT ---
Indication: CVA/TIA CONCLUSIONS The left ventricular systolic function is normal with an estimated ejection fraction in the range of 55-60%. Trace aortic valve regurgitation. There is trace tricuspid valve regurgitation. There is a trivial pericardial effusion present. No hemodynamically significant echocardiographic features were observed (no pre-tamponade physiology). BP: 150 / 75 HR: 76 Rhythm: MEASUREMENTS (Male / Female) Normal Values Technical Quality:Good 2D ECHO LV Diastolic Diameter PLAX 4.9 cm 4.2 - 5.9 / 3.9 - 5.3 cm LV Systolic Diameter PLAX 3.9 cm IVS Diastolic Thickness 1.2 cm 0.6 - 1.0 / 0.6 - 0.9 cm LVPW Diastolic Thickness 0.9 cm 0.6 - 1.0 / 0.6 - 0.9 cm LV Relative Wall Thickness 0.4 RV Internal Dim ED PLAX 2.8 cm LA Systolic Diameter LX 4.6 cm 3.0 - 4.0 / 2.7 - 3.8 cm DOPPLER LVOT Peak Velocity 80.8 cm/s LVOT Peak Gradient 2.6 mmHg Mitral E Point Velocity 95.0 cm/s Mitral A Point Velocity 104.0 cm/s Mitral E to A Ratio 0.9 TR Peak Velocity 190.0 cm/s TR Peak Gradient 14.4 mmHg FINDINGS LEFT VENTRICLE Normal left ventricular size. Wall thickness is measured at the upper limits of normal. The left ventricular systolic function is normal with an estimated ejection fraction in the range of 55-60%. RIGHT VENTRICLE Normal right ventricular size and systolic function. LEFT ATRIUM The left atrial size is upper limits of normal. RIGHT ATRIUM The right atrial size is normal. ATRIAL SEPTUM Normal atrial septal thickness without atrial level shunting by limited color doppler interrogation. AORTA The aortic root and proximal ascending aorta are normal in size on limited imaging. MITRAL VALVE Structurally normal mitral valve. No mitral valve stenosis or regurgitation. AORTIC VALVE Grossly normal aortic valve. Trace aortic valve regurgitation. No aortic valve stenosis. TRICUSPID VALVE Structurally normal tricuspid valve. No tricuspid valve stenosis. There is trace tricuspid valve regurgitation. PULMONARY VALVE The pulmonary valve is not well visualized. VESSELS The inferior vena cava is normal in size. PERICARDIUM There is a trivial pericardial effusion present. No hemodynamically significant echocardiographic features were observed (no pre-tamponade physiology). Estiven Díaz DO (Electronically Signed) Final Date:09 August 2017 13:45
[2017-08-10] MEDS ORDERED: LISINOPRIL 10 MG TAB PO SCH (09:00)
== END 2017-08-09 16:42 | disposition home or self-care (01) ==
LOC: NEPE 06:52 → NEDA 10:15 → NEPHCDU 13:53
PROVIDERS: ADMIT Hospitalist; ATTEND Hospitalist
DX: G45.9 Transient cerebral ischemic attack, unspecified (principal); I44.0 Atrioventricular block, first degree; R94.31 Abnormal electrocardiogram [ECG] [EKG]; R06.02 Shortness of breath; G31.9 Degenerative disease of nervous system, unspecified; I48.91 Unspecified atrial fibrillation; I11.0 Hypertensive heart disease with heart failure; I50.9 Heart failure, unspecified; I70.8 Atherosclerosis of other arteries; E78.00 Pure hypercholesterolemia, unspecified; E11.9 Type 2 diabetes mellitus without complications; J44.9 Chronic obstructive pulmonary disease, unspecified; E55.9 Vitamin D deficiency, unspecified; M06.9 Rheumatoid arthritis, unspecified; N40.0 Benign prostatic hyperplasia without lower urinary tract symptoms; M19.90 Unspecified osteoarthritis, unspecified site; Z79.01 Long term (current) use of anticoagulants; Z79.899 Other long term (current) drug therapy; Z79.84 Long term (current) use of oral hypoglycemic drugs; Z86.73 Personal history of transient ischemic attack (TIA), and cerebral infarction without residual deficits; Z87.891 Personal history of nicotine dependence
CPT/HCPCS: 70450; 70544; 70548; 70551; 71010; 80053; 80061; 81001; 82306; 82550; 82607; 82948; 83036; 83735; 84100; 84443; 84484; 85025; 85610; 85652; 85730; 92610; 93005; 93306; 96360; 96361; 96372; 97161; 97166; 99285; A9579; G0378; G8987; G8988; G8989; G8996; G8997; G8998; J1815; J7030

== ENCOUNTER 2017-08-16 06:35 | Emergency (ER) | payer OTHER ==
[~2017-08-16] VITALS: Ht 162.6 cm; Wt 90.0 kg
[~2017-08-16 06:35] MED LIST changes: +APIX5TAB PO; +ATOR80TA45 PO; -BACT800T5 PO; +BISO5TAB5 PO; +CYAN1000P IM; +DICL1KIT5 TOPICAL; +DILT120C50 PO; -DILT300C3 PO; +ERGO2000 PO; -FERR325T18 PO; -PRAD150C PO; -PRAV40TA2 PO; +TAMS0.4C4 PO
[2017-08-16 06:36] VITALS: BP 210/94; PULSE 94; RESP 16; TEMP 98; O2SAT 98
[2017-08-16 06:47] VITALS: BP 190/85; PULSE 77; RESP 16; O2SAT 98
--- NOTE | 2017-08-16 06:52 | PD ---
HPI Chief Complaint: Bleeding Time Seen by Provider: 06:51 Travel History International Travel<30 days: No Contact w/Intl Traveler<30days: No Traveled to known affect area: No History of Present Illness HPI 71-year-old male presents to the emergency department for complaint of intermittent nosebleeds since 5 AM. Patient states he awakened at 4:30 AM to take his morning dose of Eliquis and shortly thereafter at 5 AM started having intermittent nosebleeds. Patient presently does not have a nosebleed. Patient states she does not typically have nosebleeds. Patient states he has high blood pressure and takes his blood pressure medicine typically around 7 AM. Patient experienced no dizziness no lightheadedness no near-syncope or syncope. Patient has no headache. Patient denies any visual disturbance or balance disturbance chest pain or shortness of breath. Patient was just admitted for TIA and had been on Pradaxa for atrial fibrillation and was changed to Eliquis after the TIA. Patient presently is asymptomatic. Patient did not take his blood pressure medicine before coming to the hospital. PFSH Past Medical History Narrative Medical Eliquis therapy, atrial fibrillation, TIA, hypertension, CHF, COPD, diabetes, hypertension, dyslipidemia; cataract surgery; tobacco use; nursing notes reviewed Hx Anticoagulant Therapy: Yes (ELIQUIS) Arthritis: Yes (RA) Asthma: Yes Blood Disorders: No Heart Rhythm Problems: Yes (afib) High Cholesterol: Yes Chemotherapy: No Congestive Heart Failure: Yes COPD: Yes Cerebrovascular Accident: Yes (TIA) Coronary Artery Disease: No Diabetes: Yes Patient Takes Glucophage: Yes Diminished Hearing: No Endocrine: No Genitourinary: Yes ( enlarged prostate) Hypertension: Yes Immune Disorder: No Implanted Vascular Access Dvce: No Musculoskeletal: No Neurologic: Yes (tia hx of) Psychiatric: No Reproductive: No Respiratory: Yes (COPD) Immunizations Current: Yes Radiation Therapy: No Past Surgical History Eye Surgery: Yes (BILAT CATARACT/LENS IMPLANT SURGERY) Other Surgery: Yes (CATARACTS AND LENS IMPLANTS) Social History Alcohol Use: No Tobacco Use: No (QUIT 09/18) Substance Use: No Allergies-Medications (Allergen,Severity, Reaction): Coded Allergies: No Known Allergies (Verified Adverse Reaction, Unknown, 08/16/17) Reported Meds & Prescriptions Reported Meds & Active Scripts Active Lisinopril 10 Mg Tab 10 Mg PO DAILY Vitamin D2 (Ergocalciferol) 2,000 Unit Tab 2,000 Units PO DAILY Eliquis (Apixaban) 5 Mg Tab 5 Mg PO BID Atorvastatin (Atorvastatin Calcium) 80 Mg Tab 80 Mg PO HS Reported Tamsulosin (Tamsulosin HCl) 0.4 Mg Cap 0.4 Mg PO HS Bisoprolol (Bisoprolol Fumarate) 5 Mg Tab 2.5 Mg PO DAILY Diltiazem CD 24 HR 120 Mg Caper 180 Mg PO DAILY Diclo Gel Topical (Diclofenac Sodium) 1% Gel 1 Applic TOPICAL QID Cyanocobalamin Inj (Cyanocobalamin) 1,000 Mcg/Ml Inj 1,000 Mcg IM Q30D Methotrexate 2.5 Mg Tab 2.5 Mg PO Q7D Folic Acid 1 Mg Tablet 1 Mg PO DAILY Albuterol Neb (Albuterol Sulfate) 0.63 Mg/3 Ml Neb 0.63 Mg NEB QID NEB PRN Metformin (Metformin HCl) 1,000 Mg Tab 1,000 Mg PO BIDPC With meals Symbicort Inh (Budesonide/Formoterol Fumarate) Unknown Strength Aero 2 Puff INH Q12HR Terazosin (Terazosin HCl) 1 Mg Cap 1 Mg PO HS Review of Systems Except as stated in HPI: all other systems reviewed are Neg General / Constitutional: No: Fever, Chills Eyes: No: Visual changes HENT: Positive: Nosebleed Cardiovascular: No: Chest Pain or Discomfort Respiratory: No: Shortness of Breath Gastrointestinal: No: Vomiting Musculoskeletal: No: Pain Skin: No Rash Neurologic: No: Weakness, Dizziness, Syncope Psychiatric: No: Anxiety Hematologic/Lymphatic: Positive: Easy Bruising (Eliquis) Physical Exam Narrative GENERAL: Well-developed well-nourished male in no acute distress no respiratory distress SKIN: Warm and dry. HEAD: Normocephalic. EYES: No scleral icterus. No injection or drainage. ENT: Right naris with hyperemia no active bleeding no thrombus left naris pink no evidence of bleeding posterior pharynx no bruising or bleeding or thrombus. NECK: Supple, trachea midline. No JVD or lymphadenopathy. CARDIOVASCULAR: Regular rate and rhythm without murmurs, gallops, or rubs. RESPIRATORY: Breath sounds equal bilaterally. No accessory muscle use. GASTROINTESTINAL: Abdomen soft, non-tender, nondistended. MUSCULOSKELETAL: No cyanosis, or edema. BACK: Nontender without obvious deformity. No CVA tenderness. Data Data Last Documented VS Vital Signs Date Time Temp Pulse Resp B/P (MAP) Pulse Ox O2 Delivery O2 Flow Rate FiO2 08/16/17 06:47 77 16 190/85 (120) 98 Room Air 08/16/17 06:36 98.0 Orders Orders Lisinopril (Prinivil) (08/16/17 07:00) Diltiazem Cd (Cardizem Cd) (08/16/17 07:00) MDM Medical Decision Making Medical Screen Exam Complete: Yes Emergency Medical Condition: Yes Medical Record Reviewed: Yes Interpretation(s) UA: Differential Diagnosis Epistaxis on anticoagulation, coagulopathy, uncontrolled hypertension Narrative Course Patient with nosebleed on Eliquis this morning currently no active nosebleed to not take his morning antihypertensive medications his first dose for the day lisinopril 10 mg and Cardizem CD 180 mg administered by mouth. Patient will be observed for a while in the emergency department to make sure there is no recurrent epistaxis as his blood pressure normalizes should he have recurrent nose bleed or should his blood pressure not respond to his morning medications will administer labetalol 20 mg IV for blood pressure control. Care signed over to Norma Good MD Aug 16, 2017 06:52
[2017-08-16] MEDS ORDERED: DILTIAZEM-CD 180 MG CAP ER PO ONE (07:00)
[2017-08-16] MEDS ORDERED: LISINOPRIL 10 MG TAB PO ONE (07:00)
--- NOTE | 2017-08-16 08:14 | PD ---
Physical Exam Date Seen by Provider: Aug 16, 2017 Time Seen by Provider: 07:00 Narrative Patient signed out to me at 7 AM, had been given blood pressure medications and is being observed for epistaxis. On reevaluation at 8 AM, blood pressure has improved and his epistaxis is slowed down to a minimal amount of spotting. Evaluation of the right nostril shows that there is a small abrasion to the septal area with minimal bleeding. At this point, I have talked to the patient briefly about putting a Rhino Rocket in but I think that this is a fairly minor very small amount of bleeding and I suspect it will stop on his own. I think that patient does not need a Rhino Rocket placement for this very tiny abrasion. In fact, the bleeding has mostly stopped on my last evaluation. However, he will need his blood pressure better controlled. I have placed a small amount of antibiotic ointment on the area. He will need to return for any worsening in bleeding or new symptoms as needed. Follow-up closely with primary care doctor. The plan was discussed with him and he states understanding. Data Data Last Documented VS Vital Signs Date Time Temp Pulse Resp B/P (MAP) Pulse Ox O2 Delivery O2 Flow Rate FiO2 08/16/17 06:47 77 16 190/85 (120) 98 Room Air 08/16/17 06:36 98.0 Orders Orders Lisinopril (Prinivil) (08/16/17 07:00) Diltiazem Cd (Cardizem Cd) (08/16/17 07:00) Benzocaine 20% Oral Spr (Hurricaine 20% (08/16/17 08:15) Ed Discharge Order (08/16/17 08:12) [facility] Medical Record Reviewed: Yes Supervised Visit with SHERRI: No Diagnosis Primary Impression: Epistaxis Additional Impression: HTN (hypertension) Disposition: 01 DISCHARGE HOME Condition: Stable Nancy Lee MD Aug 16, 2017 08:14
[2017-08-16 08:15] VITALS: BP 164/92; PULSE 72; RESP 16
[2017-08-16] MEDS ORDERED: BENZOCAINE 20% ORAL SPR 60 ML CAN OROPHARYNG ONE (08:15)
[2017-08-16 08:25] VITALS: BP 162/90
== END 2017-08-16 08:37 | disposition home or self-care (01) ==
LOC: NEPC 06:35
DX: R04.0 Epistaxis (principal); I10 Essential (primary) hypertension; I48.91 Unspecified atrial fibrillation; J44.9 Chronic obstructive pulmonary disease, unspecified; E11.9 Type 2 diabetes mellitus without complications; Z86.73 Personal history of transient ischemic attack (TIA), and cerebral infarction without residual deficits; Z79.01 Long term (current) use of anticoagulants
CPT/HCPCS: 99283

== ENCOUNTER 2017-10-12 10:59 | Observation (INO) | payer OTHER ==
[~2017-10-12] VITALS: Ht 167.6 cm; Wt 90.0 kg
[2017-10-12] VITALS (7 sets, daily range): BP systolic 139–170; BP diastolic 63–78; PULSE 38–69; RESP 17–24; TEMP 97.4–97.5; O2SAT 97–100
[2017-10-12] MEDS ORDERED: SODIUM CHLORIDE 0.9% FLUSH 10 ML FLUSH IVF PRN (11:15)
[2017-10-12] MEDS ORDERED: ASPIRIN 325 MG TAB PO ONE (11:15)
[2017-10-12] MEDS ORDERED: METH0.35 SQ (11:34)
[2017-10-12] MEDS ORDERED: CARD180C5 PO (11:34)
--- NOTE | 2017-10-12 11:35 | PD ---
HPI Chief Complaint: Chest Pain Time Seen by Provider: 11:09 Travel History International Travel<30 days: No Contact w/Intl Traveler<30days: No Traveled to known affect area: No History of Present Illness HPI 72-year-old male that presents to the ED for evaluation of chest pain. Patient has a history of CHF, atrial fibrillation, COPD, RA and prostate disease comes here for evaluation of chest pain since 7 am. He has had this pain before but has never seen anybody for this. Per patient still present and is sharp. States compliance with his medications. Takes Eliquis. Did not take aspirin or nitroglycerin today. Pain comes and goes. has nausea as well. No Abdominal pain. No BM or urinary symptoms. per patient last stress test was about 2 years ago and per patient negative. No recent surgeries or travel. No vomit. No fevers , chills or sweats. No allergies. 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 history of DM, HTN and smoking. Pain is 4/10 and sharlp on the mid chest. PFSH Past Medical History Hx Anticoagulant Therapy: Yes Arthritis: Yes (RA) Asthma: Yes Blood Disorders: No Heart Rhythm Problems: Yes (AFIB) Cardiovascular Problems: Yes High Cholesterol: Yes Chemotherapy: No Congestive Heart Failure: Yes COPD: Yes Cerebrovascular Accident: Yes (TIA) Coronary Artery Disease: No Diabetes: Yes Patient Takes Glucophage: Yes Diminished Hearing: No Endocrine: No Genitourinary: Yes (ENLARGED PROSTATE) Hypertension: Yes Immune Disorder: No Implanted Vascular Access Dvce: No Musculoskeletal: No Neurologic: Yes (TIA) Psychiatric: No Reproductive: No Respiratory: Yes Immunizations Current: Yes Radiation Therapy: No Past Surgical History Eye Surgery: Yes (BILAT CATARACT/LENS IMPLANT SURGERY) Other Surgery: Yes (CATARACTS AND LENS IMPLANTS) Social History Alcohol Use: No Tobacco Use: No (QUIT 09/18) Substance Use: No Allergies-Medications (Allergen,Severity, Reaction): Coded Allergies: No Known Allergies (Verified Adverse Reaction, Unknown, 10/12/17) Reported Meds & Prescriptions Reported Meds & Active Scripts Active Lisinopril 10 Mg Tab 10 Mg PO DAILY Vitamin D2 (Ergocalciferol) 2,000 Unit Tab 2,000 Units PO DAILY Eliquis (Apixaban) 5 Mg Tab 5 Mg PO BID Atorvastatin (Atorvastatin Calcium) 80 Mg Tab 80 Mg PO HS Reported Rasuvo (Methotrexate (Antirheumatic)) 20 Mg/0.4 Ml Inj Unknown Dose SQ WEEKLY Cardizem CD 24 HR (Diltiazem CD 24 HR) 180 Mg Caper 180 Mg PO BID Tamsulosin (Tamsulosin HCl) 0.4 Mg Cap 0.4 Mg PO HS Bisoprolol (Bisoprolol Fumarate) 5 Mg Tab 2.5 Mg PO DAILY Diclo Gel Topical (Diclofenac Sodium) 1% Gel 1 Applic TOPICAL QID Cyanocobalamin Inj (Cyanocobalamin) 1,000 Mcg/Ml Inj 1,000 Mcg IM Q30D Folic Acid 1 Mg Tablet 1 Mg PO DAILY Albuterol Neb (Albuterol Sulfate) 0.63 Mg/3 Ml Neb 0.63 Mg NEB QID NEB PRN Metformin (Metformin HCl) 1,000 Mg Tab 1,000 Mg PO BIDPC With meals Symbicort Inh (Budesonide/Formoterol Fumarate) Unknown Strength Aero 2 Puff INH Q12HR Terazosin (Terazosin HCl) 1 Mg Cap 1 Mg PO HS Review of Systems Except as stated in HPI: all other systems reviewed are Neg Physical Exam Narrative GENERAL: SKIN: Warm and dry. HEAD: Atraumatic. Normocephalic. EYES: Pupils equal and round. No scleral icterus. No injection or drainage. ENT: No nasal bleeding or discharge. Mucous membranes pink and moist. Tongue is midline. No uvula deviation. NECK: Trachea midline. No JVD. CARDIOVASCULAR: Regular rate and rhythm. No murmurs, S3, S4. Chest pain is not reproducible with touch. RESPIRATORY: No accessory muscle use. Clear to auscultation. Breath sounds equal bilaterally. GASTROINTESTINAL: Abdomen soft, non-tender, nondistended. Hepatic and splenic margins not palpable. MUSCULOSKELETAL: Extremities without clubbing, cyanosis, or edema. No obvious deformities. Full range of motion of the upper and lower extremities bilaterally. 2+ pulses bilaterally. NEUROLOGICAL: Awake and alert. No obvious cranial nerve deficits. Motor grossly within normal limits. Five out of 5 muscle strength in the arms and legs. Normal speech. PSYCHIATRIC: Appropriate mood and affect; insight and judgment normal. Data Data Last Documented VS Vital Signs Date Time Temp Pulse Resp B/P (MAP) Pulse Ox O2 Delivery O2 Flow Rate FiO2 10/12/17 11:21 44 20 162/78 (106) 99 Nasal Cannula 2.00 10/12/17 11:01 97.5 Orders Orders Electrocardiogram (10/12/17 11:12) B-Type Natriuretic Peptide (10/12/17 11:12) Ckmb (Isoenzyme) Profile (10/12/17 11:12) Complete Blood Count With Diff (10/12/17 11:12) Comprehensive Metabolic Panel (10/12/17 11:12) Magnesium (Mg) (10/12/17 11:12) Prothrombin Time / Inr (Pt) (10/12/17 11:12) Act Partial Throm Time (Ptt) (10/12/17 11:12) Troponin I (10/12/17 11:12) Lipase (10/12/17 11:12) Chest, Single Ap (10/12/17 11:12) Ecg Monitoring (10/12/17 11:12) Bilateral Bp Monitoring (10/12/17 11:12) Iv Access Insert/Monitor (10/12/17 11:12) Oximetry (10/12/17 11:12) Oxygen Administration (10/12/17 11:12) Aspirin (Aspirin) (10/12/17 11:15) Sodium Chloride 0.9% Flush (Ns Flush) (10/12/17 11:15) Admit Order (Ed Use Only) (10/12/17 12:40) Labs Laboratory Tests Test 10/12/17 11:15 White Blood Count 7.8 TH/MM3 Red Blood Count 3.76 MIL/MM3 Hemoglobin 11.0 GM/DL Hematocrit 33.3 % Mean Corpuscular Volume 88.6 FL Mean Corpuscular Hemoglobin 29.2 PG Mean Corpuscular Hemoglobin Concent 32.9 % Red Cell Distribution Width 15.8 % Platelet Count 413 TH/MM3 Mean Platelet Volume 7.9 FL Neutrophils (%) (Auto) 75.4 % Lymphocytes (%) (Auto) 13.8 % Monocytes (%) (Auto) 8.9 % Eosinophils (%) (Auto) 1.5 % Basophils (%) (Auto) 0.4 % Neutrophils # (Auto) 5.9 TH/MM3 Lymphocytes # (Auto) 1.1 TH/MM3 Monocytes # (Auto) 0.7 TH/MM3 Eosinophils # (Auto) 0.1 TH/MM3 Basophils # (Auto) 0.0 TH/MM3 CBC Comment DIFF FINAL Differential Comment Prothrombin Time 10.3 SEC Prothromb Time International Ratio 1.0 RATIO Activated Partial Thromboplast Time 27.8 SEC Blood Urea Nitrogen 24 MG/DL Creatinine 1.24 MG/DL Random Glucose 122 MG/DL Total Protein 7.5 GM/DL Albumin 3.4 GM/DL Calcium Level 9.3 MG/DL Magnesium Level 1.8 MG/DL Alkaline Phosphatase 88 U/L Aspartate Amino Transf (AST/SGOT) 14 U/L Alanine Aminotransferase (ALT/SGPT) 19 U/L Total Bilirubin 0.3 MG/DL Sodium Level 135 MEQ/L Potassium Level 5.5 MEQ/L Chloride Level 102 MEQ/L Carbon Dioxide Level 25.3 MEQ/L Anion Gap 8 MEQ/L Estimat Glomerular Filtration Rate 57 ML/MIN Total Creatine Kinase 50 U/L Troponin I LESS THAN 0.02 NG/ML B-Type Natriuretic Peptide 127 PG/ML Lipase 95 U/L MDM Medical Decision Making Medical Screen Exam Complete: Yes Emergency Medical Condition: Yes Medical Record Reviewed: Yes Interpretation(s) CBC & BMP Diagram 10/12/17 11:15 Total Protein 7.5, Albumin 3.4, Calcium Level 9.3, Magnesium Level 1.8, Alkaline Phosphatase 88, Aspartate Amino Transf (AST/SGOT) 14 L, Alanine Aminotransferase (ALT/SGPT) 19, Total Bilirubin 0.3 Troponin and CKMB negative BNP in the 100s Last Impressions Chest X-Ray 10/12/17 1112 Signed Impressions: Service Date/Time: Thursday, October 12, 2017 11:20 - CONCLUSION: No acute disease. Marce Nieves MD EKG show what appears to be junctional rhythm with bradycardia Differential Diagnosis Chest pain versus bradycardia versus bradycardia arrhythmia versus ACS versus a typical chest pain versus CHF Narrative Course 72-year-old male that presents to the ED for evaluation of chest pain. Patient was properly examined and was found to have signs and symptoms consistent appears to be concerning for ACS. Labs and imaging were ordered. Initial EKG showed bradycardia which appears to be junctional. Patient was given aspirin. Labs and imaging showed no sign of acute disease or that appears to be junctional rhythm with bradycardia. Otherwise unremarkable. Patient does have risk factors for ACS and per patient he has not had a stress test 2 years. 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 Unclear as to the cause of his pain but I am concerned for cardiac in nature. Patient was given option to be admitted to the chest pain center and agreed to this. Patient was admitted for chest pain center. Diagnosis Primary Impression: Chest pain Qualified Codes: R07.9 - Chest pain, unspecified Admitting Information Admitting Physician Requests: Aram Pickett Oct 12, 2017 11:35
[2017-10-12 11:39] LABS: AUTOMATED NEUTROPHIL # 5.9 TH/MM3 (1.8-7.7); BASOPHIL % 0.4 % (0.0-2.0); EOSINOPHIL # 0.1 TH/MM3 (0-0.4); EOSINOPHIL % 1.5 % (0.0-4.0); HEMATOCRIT 33.3 % (39.0-51.0); LYMPH % 13.8 % (9.0-44.0); LYMPHOCYTE # 1.1 TH/MM3 (1.0-4.8); MEAN CELL VOLUME 88.6 FL (80.0-100.0); MEAN CORPUSCULAR HEMOGLOBIN 29.2 PG (27.0-34.0); MEAN CORPUSCULAR HGB CONC 32.9 % (32.0-36.0); MEAN PLATELET VOLUME 7.9 FL (7.0-11.0); MONO % 8.9 % (0.0-8.0); MONOCYTE # 0.7 TH/MM3 (0-0.9); NEUT % 75.4 % (16.0-70.0); PLATELET COUNT 413 TH/MM3 (150-450); RED BLOOD COUNT 3.76 MIL/MM3 (4.50-5.90); RED CELL DISTRIBUTION WIDTH 15.8 % (11.6-17.2); WHITE BLOOD COUNT 7.8 TH/MM3 (4.0-11.0)
[2017-10-12 11:48] LABS: PROTHROMBIN TIME - PATIENT 10.3 SEC (9.8-11.6)
--- NOTE | 2017-10-12 11:51 | RADRPT ---
EXAM DATE/TIME: 10/12/2017 11:20 [facility] COMPARISON: CHEST SINGLE AP, August 08, 2017, 7:31. INDICATIONS : Chest pain. MEDICAL HISTORY : Chronic obstructive pulmonary disease. A-fib SURGICAL HISTORY : None. ENCOUNTER: Initial ACUITY: 1 day PAIN SCORE: 3/10 LOCATION: Bilateral chest FINDINGS: A single view of the chest demonstrates the lungs to be symmetrically aerated without evidence of mas s, infiltrate or effusion. The cardiomediastinal contours are unremarkable. Osseous structures are intact. CONCLUSION: No acute disease. Marce Nieves MD on October 12, 2017 at 11:47 Board Certified Radiologist. This report was verified electronically.
[2017-10-12 11:59] LABS: ALBUMIN 3.4 GM/DL (3.4-5.0); ALT (GPT) 19 U/L (12-78); AST (GOT) 14 U/L (15-37); BICARBONATE 25.3 MEQ/L (21.0-32.0); BLOOD UREA NITROGEN 24 MG/DL (7-18); CALCIUM 9.3 MG/DL (8.5-10.1); CHLORIDE 102 MEQ/L (98-107); CREATININE 1.24 MG/DL (0.60-1.30); GLOMERULAR FILTRATION RATE 57 ML/MIN (>89); GLUCOSE,RANDOM 122 MG/DL (74-106); MAGNESIUM 1.8 MG/DL (1.5-2.5); SODIUM (NA) 135 MEQ/L (136-145)
[2017-10-12 12:03] LABS: ALKALINE PHOSPHATASE 88 U/L (45-117); TOTAL BILIRUBIN ADULT 0.3 MG/DL (0.2-1.0); TOTAL PROTEIN 7.5 GM/DL (6.4-8.2); TROPONIN I LESS THAN 0.02 NG/ML (0.02-0.05)
[2017-10-12] MEDS ORDERED: NITROGLYCERIN 0.4 MG SL 25 TABS/BTL SL PRN (13:00)
[2017-10-12] MEDS ORDERED: ACETAMINOPHEN 500 MG CPLT PO PRN (13:00)
[2017-10-12] MEDS ORDERED: ONDANSETRON HCL 4 MG/2 ML VIAL IV PUSH PRN (13:00)
--- NOTE | 2017-10-12 14:44 | HHI.HP ---
HPI Primary Care Physician [facility] Chief Complaint Chest tightness History of Present Illness 72-year-old male with history of paroxysmal A. fib, type 2 diabetes, hypertension, rheumatoid arthritis, and former smoker presents to emergency room for further evaluation of chest tightness. Onset between 6-630 a.m. Location substernal. Characterized as tightness. Severity [id number]. No radiation of discomfort. Duration 2-3 seconds, tightness subside before returning 20-30 minutes later. Total of 3-4 episodes, therefore decided come to the emergency room for further evaluation. Associated symptoms of nausea and mild shortness of breath. Denied vomiting or diaphoresis. Did not hurt to take a deep breath. Denies similar pain in the past. No known precipitating or relieving factors. Currently is chest pain-free. Review of Systems General: No fatigue,weakness, fever, chills, recent illness, or change in appetite. Has been his general state of health. HEENT: No ZAIDI, no vision changes, no nasal congestion or drainage, no dysphasia CV: As stated above. No current chest pain, pressure, or tightness. No recent feelings of palpitations. Endorses compliance with medications and does feel he may have mistakenly taken extra to double doses of cardiac medications. Remote history of CHF one year ago, since this time no reoccurrence. RESP: History of COPD and former smoker. Becomes dyspneic walking flight of stairs, having to stop detention. No home O2. No recent increase in SOB, cough, or wheeze. GI: No nausea, vomiting, bowel changes, diarrhea, constipation, pain, distention , melena, or blood in the stool. No change in appetite, no unintentional weight gain or weight loss. Recent stool occult blood x2 months reported to be negative. : No dysuria, urgency, frequency. History of BPH and reports taking x2 bph medications currently. EXT: No lower leg edema, no paraesthesias MS: No discomfort or change in ROM NEURO: History of TIA. No change in memory, difficulty with balance, LOC, motor/ sensory deficits PSYCH: No anxiety, depression, suicidal ideation SKIN: No rashes, no concerning lesions Past Family Social History Allergies: Coded Allergies: No Known Allergies (Verified Adverse Reaction, Unknown, 10/12/17) Past Medical History Type 2 diabetes, paroxysmal A. fib, COPD, TIA, BPH, hypertension, former smoker , rheumatoid arthritis, dyslipidemia, congestive heart failure Past Surgical History Bilateral cataract Reported Medications Reported Meds & Active Scripts Active Lisinopril 10 Mg Tab 10 Mg PO DAILY Vitamin D2 (Ergocalciferol) 2,000 Unit Tab 2,000 Units PO DAILY Eliquis (Apixaban) 5 Mg Tab 5 Mg PO BID Atorvastatin (Atorvastatin Calcium) 80 Mg Tab 80 Mg PO HS Rasuvo (Methotrexate (Antirheumatic)) 20 Mg/0.4 Ml Inj Unknown Dose SQ WEEKLY Cardizem CD 24 HR (Diltiazem CD 24 HR) 180 Mg Caper 180 Mg PO BID Tamsulosin (Tamsulosin HCl) 0.4 Mg Cap 0.4 Mg PO HS Bisoprolol (Bisoprolol Fumarate) 5 Mg Tab 2.5 Mg PO DAILY Diclo Gel Topical (Diclofenac Sodium) 1% Gel 1 Applic TOPICAL QID Cyanocobalamin Inj (Cyanocobalamin) 1,000 Mcg/Ml Inj 1,000 Mcg IM Q30D Folic Acid 1 Mg Tablet 1 Mg PO DAILY Albuterol Neb (Albuterol Sulfate) 0.63 Mg/3 Ml Neb 0.63 Mg NEB QID NEB PRN Metformin (Metformin HCl) 1,000 Mg Tab 1,000 Mg PO BIDPC With meals Symbicort Inh (Budesonide/Formoterol Fumarate) Unknown Strength Aero 2 Puff INH Q12HR Terazosin (Terazosin HCl) 1 Mg Cap 1 Mg PO HS Active Ordered Medications Current Medications Medications (Trade) Dose Ordered Sig/Veto Route Start Time Stop Time Status Last Admin (NS Flush) 2 ml UNSCH PRN IVF 10/12/17 11:15 (NS Flush) 2 ml BID IV FLUSH 10/12/17 21:00 (Tylenol) 500 mg Q4H PRN PO 10/12/17 13:00 (Zofran Inj) 4 mg Q6H PRN IV PUSH 10/12/17 13:00 (Nitrostat Sl) 0.4 mg Q5M PRN SL 10/12/17 13:00 (Aspirin) 325 mg DAILY PO 10/13/17 09:00 Social History No known coronary artery disease. Known diabetes, hyperlipidemia, and hypertension. Former 110 pack year history of smoking. Night any alcohol use. Endorses sedentary lifestyle due to COPD. Past cardiac testing No recent cardiac testing. 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 Appointment scheduled next month. 08/09/17 Echocardiogram-trace aortic, trace tricuspid, EF 55-60% Holter monitor approximately one year ago reported to be unremarkable. 10/14/12 [id number]. Small fixed lateral wall perfusion defect. Ejection fraction 67% Physical Exam Vital Signs Vital Signs Date Time Temp Pulse Resp B/P (MAP) Pulse Ox O2 Delivery O2 Flow Rate FiO2 10/12/17 14:09 10/12/17 13:00 38 24 139/63 (88) 100 Nasal Cannula 2.00 10/12/17 11:21 44 20 162/78 (106) 99 Nasal Cannula 2.00 10/12/17 11:19 99 Nasal Cannula 2.00 10/12/17 11:19 Nasal Cannula 2.00 10/12/17 11:19 44 22 162/78 (106) 98 Nasal Cannula 2.00 170/72 (104) 10/12/17 11:09 44 22 170/71 (104) 97 Room Air 10/12/17 11:08 23 97 Room Air 10/12/17 11:01 97.5 68 17 165/72 (103) 98 Physical Exam GENERAL: Alert WN, WD, NAD, pleasant male HEAD: NC, AT EYES: Sclera clear, conjunctiva without injection, pupils equal and round ENT: Mucous membranes pink and moist, no nasal discharge or bleeding CV: Bradycardic irregular rhythm, without murmur, rub, gallop, S1-S2 no S3-S4. RESP: Diminished lungs throughout bilateral, faint expiratory wheeze, no crackles, wheeze, rhonchi, symmetrical chest rise, nonlabored, able to speak in full sentences ABD: Soft, NT, ND, no masses, positive bowel tones EXT: Pulses +24, no dependent edema MS: Normal tone 4 extremities, no obvious deformities, full range of motion NEURO: CN II through CN XII grossly intact, motor strength 5/5 PSYCH: A+O 3, pleasant affect, appropriate speech, mood, insight and judgment SKIN: Normal turgor, normal texture, no lesions, no rashes, even hair distribution Laboratory Laboratory Tests Test 10/12/17 11:15 White Blood Count 7.8 Red Blood Count 3.76 Hemoglobin 11.0 Hematocrit 33.3 Mean Corpuscular Volume 88.6 Mean Corpuscular Hemoglobin 29.2 Mean Corpuscular Hemoglobin Concent 32.9 Red Cell Distribution Width 15.8 Platelet Count 413 Mean Platelet Volume 7.9 Neutrophils (%) (Auto) 75.4 Lymphocytes (%) (Auto) 13.8 Monocytes (%) (Auto) 8.9 Eosinophils (%) (Auto) 1.5 Basophils (%) (Auto) 0.4 Neutrophils # (Auto) 5.9 Lymphocytes # (Auto) 1.1 Monocytes # (Auto) 0.7 Eosinophils # (Auto) 0.1 Basophils # (Auto) 0.0 CBC Comment DIFF FINAL Differential Comment Prothrombin Time 10.3 Prothromb Time International Ratio 1.0 Activated Partial Thromboplast Time 27.8 Blood Urea Nitrogen 24 Creatinine 1.24 Random Glucose 122 Total Protein 7.5 Albumin 3.4 Calcium Level 9.3 Magnesium Level 1.8 Alkaline Phosphatase 88 Aspartate Amino Transf (AST/SGOT) 14 Alanine Aminotransferase (ALT/SGPT) 19 Total Bilirubin 0.3 Sodium Level 135 Potassium Level 5.5 Chloride Level 102 Carbon Dioxide Level 25.3 Anion Gap 8 Estimat Glomerular Filtration Rate 57 Total Creatine Kinase 50 Troponin I LESS THAN 0.02 B-Type Natriuretic Peptide 127 Lipase 95 Result Diagram: 10/12/17 1115 10/12/17 1115 Imaging Last 48 hours Impressions Chest X-Ray 10/12/17 1112 Signed Impressions: Service Date/Time: Thursday, October 12, 2017 11:20 - CONCLUSION: No acute disease. Marce Nieves MD Course EKG 1st EKG (1109am)-atrial fibrillation with slow ventricular response, no st changes 2nd EKG (1121 am)-supraventricular bradycardia verses sick sinus rhythm, questionable p waves buried in t waves 3rd EKG (1123am)-atrial fibrillation with slow ventricular response verses areli rhythm 4th EKG (1431am) NSB with 1st AVB, no st t segment changes Caprini VTE Risk Assessment Caprini VTE Risk Assessment: Mod/High Risk (score >= 2) Caprini Risk Assessment Model Point Value = 1 Point Value = 2 Point Value = 3 Point Value = 5 Age 41-60 Minor surgery BMI > 25 kg/m2 Swollen legs Varicose veins or History of unexplained or recurrent spontaneous Oral contraceptives or hormone replacement Sepsis (< 1 month) Serious lung disease, including pneumonia (< 1 month) Abnormal pulmonary function Acute myocardial infarction Congestive heart failure (< 1 month) History of inflammatory bowel disease Medical patient at bed rest Age 61-74 Arthroscopic surgery Major open surgery (> 45 min) Laparoscopic surgery (> 45 min) Malignancy Confined to bed (> 72 hours) Immobilizing plaster cast Central venous access Age >= 75 History of VTE Family history of VTE Factor V Leiden Prothrombin [id number] Lupus anticoagulant Anticardiolipin antibodies Elevated serum homocysteine Heparin-induced thrombocytopenia Other congenital or acquired thrombophilia Stroke (< 1 month) Elective arthroplasty Hip, pelvis, or leg fracture Acute spinal cord injury (< 1 month) Prophylaxis Regimen Total Risk Factor Score Risk Level Prophylaxis Regimen 0-1 Low Early ambulation 2 Moderate Order ONE of the following: *Sequential Compression Device (SCD) *Heparin 5000 units SQ BID 3-4 Higher Order ONE of the following medications: *Heparin 5000 units SQ TID *Enoxaparin/Lovenox 40 mg SQ daily (WT < 150 kg, CrCl > 30 mL/min) *Enoxaparin/Lovenox 30 mg SQ daily (WT < 150 kg, CrCl > 10-29 mL/min) *Enoxaparin/Lovenox 30 mg SQ BID (WT < 150 kg, CrCl > 30 mL/min) AND/OR *Sequential Compression Device (SCD) 5 or more Highest Order ONE of the following medications: *Heparin 5000 units SQ TID (Preferred with Epidurals) *Enoxaparin/Lovenox 40 mg SQ daily (WT < 150 kg, CrCl > 30 mL/min) *Enoxaparin/Lovenox 30 mg SQ daily (WT < 150 kg, CrCl > 10-29 mL/min) *Enoxaparin/Lovenox 30 mg SQ BID (WT < 150 kg, CrCl > 30 mL/min) AND *Sequential Compression Device (SCD) Assessment and Plan Assessment and Plan #1 Atypical chest pain-admitted to chest pain center. Begin cardiac protocol including 3 sets of EKGs, cardiac enzymes, and monitoring on telemetry. Will be seen and evaluated by Dr. Tee Frias. Discussed concern over bradycardiac rhythm, therefore requested him to maintain bedrest at this time. Verbalized understanding and also discussed with RN. Possible stress testing, this will be determined after evaluation by Dr. Frias. #2 Bradycardiac rhythm-24 hour monitoring, suspecting sick sinus syndrome, hemodynamically stable, questionable areli rhythm, atrial fib, or NSB with 1st AVB #3 History of hypertension-continue to monitor, hold lisinopril, recheck BMP in am. #4 History of type II diabetes-hold metformin, begin SSI low dose coverage #5 History of paroxysmal atrial fibrillation-continue Eliquis #6 History of COPD-continue Symbicort, albuterol Q2H prn as needed for shortness of breath/wheeze, instructed him to notify RN for needed RT treatments , keep SPO2 greater 92% #7 History of BPH-continue Terazosin and Tamsulosin #8 History of hyperlipidemia-continue simvastatin 1715-Lexiscan will be completed this evening. 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 This has been discussed with RN and patient. Raquel Sutherland Oct 12, 2017 14:44
[2017-10-12] MEDS ORDERED: RESP: ALBUTEROL 2.5 MG/3 ML NEB (PRN) NEB (15:00)
[2017-10-12] MEDS ORDERED: DEXTROSE 50% IN WATER 50 ML VIAL(D50) IV PUSH PRN (15:00)
[2017-10-12] MEDS ORDERED: GLUCAGON 1 MG/ML VIAL OTHER PRN (15:00)
[2017-10-12 15:48] LABS: TROPONIN I LESS THAN 0.02 NG/ML (0.02-0.05)
--- NOTE | 2017-10-12 16:21 | PD.CARD.PN ---
Subjective Subjective Remarks Complex [facility] patient with known A. Fib, COPD, HTN, RA, TIA, CHF AND lipids presented with new but atypical CP. He was evaluated with nuclear scan in 2012 which was negative and is followed by a Biologist at [facility] on a regular basis. Seen and evaluated and discussed with [employer]TER He has RO ACS x2 Objective Medications Current Medications Medications (Trade) Dose Ordered Sig/Veto Route Start Time Stop Time Status Last Admin (NS Flush) 2 ml UNSCH PRN IVF 10/12/17 11:15 (NS Flush) 2 ml BID IV FLUSH 10/12/17 21:00 (Tylenol) 500 mg Q4H PRN PO 10/12/17 13:00 (Zofran Inj) 4 mg Q6H PRN IV PUSH 10/12/17 13:00 (Nitrostat Sl) 0.4 mg Q5M PRN SL 10/12/17 13:00 (Aspirin) 325 mg DAILY PO 10/13/17 09:00 (Albuterol Neb) 2.5 mg Q2HR NEB PRN NEB 10/12/17 15:00 (D50w (Vial) Inj) 50 ml UNSCH PRN IV PUSH 10/12/17 15:00 (Glucagon Inj) 1 mg UNSCH PRN OTHER 10/12/17 15:00 (NovoLOG SUPPLEMENTAL SCALE) 1 ACHS SLIDING SCALE SQ 10/12/17 17:00 (Eliquis) 5 mg BID PO 10/12/17 21:00 (Lipitor) 80 mg HS PO 10/12/17 21:00 (Folate) 1 mg DAILY PO 10/13/17 09:00 (Flomax) 0.4 mg HS PO 10/12/17 21:00 (Hytrin) 1 mg HS PO 10/12/17 21:00 Non-Formulary Medication 2 puff Q12HR INH 10/12/17 21:00 UNV Vital Signs / I&O Vital Signs Date Time Temp Pulse Resp B/P (MAP) Pulse Ox O2 Delivery O2 Flow Rate FiO2 10/12/17 14:09 10/12/17 13:00 38 24 139/63 (88) 100 Nasal Cannula 2.00 10/12/17 11:21 44 20 162/78 (106) 99 Nasal Cannula 2.00 10/12/17 11:19 99 Nasal Cannula 2.00 10/12/17 11:19 Nasal Cannula 2.00 10/12/17 11:19 44 22 162/78 (106) 98 Nasal Cannula 2.00 170/72 (104) 10/12/17 11:09 44 22 170/71 (104) 97 Room Air 10/12/17 11:08 23 97 Room Air 10/12/17 11:01 97.5 68 17 165/72 (103) 98 Physical Exam Obese Chest decreased BS with expiratory wheeze but no R,R CV RR but one EKG fib, one low junctional and one sinus with 1 degree all consistent with SSS Laboratory Laboratory Tests Test 10/12/17 11:15 10/12/17 14:15 White Blood Count 7.8 TH/MM3 Red Blood Count 3.76 MIL/MM3 Hemoglobin 11.0 GM/DL Hematocrit 33.3 % Mean Corpuscular Volume 88.6 FL Mean Corpuscular Hemoglobin 29.2 PG Mean Corpuscular Hemoglobin Concent 32.9 % Red Cell Distribution Width 15.8 % Platelet Count 413 TH/MM3 Mean Platelet Volume 7.9 FL Neutrophils (%) (Auto) 75.4 % Lymphocytes (%) (Auto) 13.8 % Monocytes (%) (Auto) 8.9 % Eosinophils (%) (Auto) 1.5 % Basophils (%) (Auto) 0.4 % Neutrophils # (Auto) 5.9 TH/MM3 Lymphocytes # (Auto) 1.1 TH/MM3 Monocytes # (Auto) 0.7 TH/MM3 Eosinophils # (Auto) 0.1 TH/MM3 Basophils # (Auto) 0.0 TH/MM3 CBC Comment DIFF FINAL Differential Comment Prothrombin Time 10.3 SEC Prothromb Time International Ratio 1.0 RATIO Activated Partial Thromboplast Time 27.8 SEC Blood Urea Nitrogen 24 MG/DL Creatinine 1.24 MG/DL Random Glucose 122 MG/DL Total Protein 7.5 GM/DL Albumin 3.4 GM/DL Calcium Level 9.3 MG/DL Magnesium Level 1.8 MG/DL Alkaline Phosphatase 88 U/L Aspartate Amino Transf (AST/SGOT) 14 U/L Alanine Aminotransferase (ALT/SGPT) 19 U/L Total Bilirubin 0.3 MG/DL Sodium Level 135 MEQ/L Potassium Level 5.5 MEQ/L Chloride Level 102 MEQ/L Carbon Dioxide Level 25.3 MEQ/L Anion Gap 8 MEQ/L Estimat Glomerular Filtration Rate 57 ML/MIN Total Creatine Kinase 50 U/L 48 U/L Troponin I LESS THAN 0.02 NG/ML LESS THAN 0.02 NG/ML B-Type Natriuretic Peptide 127 PG/ML Lipase 95 U/L Imaging Last 24 hours Impressions Chest X-Ray 10/12/17 1112 Signed Impressions: Service Date/Time: Thursday, October 12, 2017 11:20 - CONCLUSION: No acute disease. Marce Nieves MD Assessment and Plan Assessment and Plan After discussion with patient we will EMANI before we plan discharge Code Status full Discussed Condition With PA and patient Tee Frias MD Oct 12, 2017 16:21
[2017-10-12] MEDS ORDERED: SYMB80AE INH (16:29)
[2017-10-12] MEDS ORDERED: INSULIN ASPART SUPPLEMENTAL SCALE SQ SCH (17:00)
--- NOTE | 2017-10-12 18:06 | HHI.DCPOC ---
Discharge Care Plan Diagnosis: (1) Atypical chest pain (2) Sick sinus syndrome Goals to Promote Your Health * To prevent worsening of your condition and complications * To maintain your health at the optimal level Directions to Meet Your Goals Take your medications as prescribed Follow your dietary instruction Follow activity as directed Keep your appointments as scheduled Take your immunizations and boosters as scheduled If your symptoms worsen call your PCP, if no PCP go to Urgent Care Center or Emergency Room Smoking is Dangerous to Your Health. Avoid second hand smoke Call the 24-hour hour crisis hotline for domestic abuse at Raquel Sutherland Oct 12, 2017 18:06
[2017-10-12] MEDS ORDERED: REGADENOSON INJ 0.4 MG/5 ML SYR ONE (18:17)
--- NOTE | 2017-10-12 20:25 | RADRPT ---
EXAM DATE/TIME: 10/12/2017 18:37 [facility] COMPARISON: MYOCARDIAL PERF PHARM SPECT, GATED W/EF, October 14, 2012, 12:46. INDICATIONS : Chest pain. Angina. DOSE: 27.3 mCi Tc99m Myoview at stress. 8.7 mCi Tc99m Myoview at rest. 0.4 mg Lexiscan STRESS SYMPTOMS: Dyspnea and lightheadedness. EJECTION FRACTION: 64% MEDICAL HISTORY : Diabetes mellitus type 2. Hypercholesterolemia. Chronic obstructive pulmonary disease. Hypertension. TIA. SURGICAL HISTORY : None. ENCOUNTER: Initial ACUITY: 1 day PAIN SCALE: 6/10 LOCATION: chest TECHNIQUE: The patient underwent pharmacologic stress with infusion of prescribed dose. Continuous ECG tracing was monitored during stress. Gated SPECT imaging was performed after stress and conventional SPECT i maging was performed at rest. The examination was performed on a SPECT/CT scanner, both attenuation and non-corrected datasets were reviewed. FINDINGS: DISTRIBUTION: The maximum perfused segment at stress is in the inferior wall. PERFUSION STUDY: The pattern of perfusion at stress is within normal limits with regional brain perfusion within 30%. Mild fixed decreased uptake in the lateral segments is unchanged from a prior myocardial perfusion s can in 2012 and could represent attenuation from body habitus or old scar. No evidence of redistribu tion. GATED STUDY: There is intact wall motion and thickening without hypokinetic or dyskinetic segments. CONCLUSION: 1. No evidence of stress-induced ischemia. 2. Intact wall motion with 64% ejection fraction. RISK CATEGORY: Low (<1% Annual Mortality Rate) Kevin Velasquez MD on October 12, 2017 at 20:21 Board Certified Radiologist. This report was verified electronically.
[2017-10-12] MEDS ORDERED: SODIUM CHLORIDE 0.9% FLUSH 10 ML FLUSH IV FLUSH SCH (21:00)
[2017-10-12] MEDS ORDERED: TAMSULOSIN HCL 0.4 MG CAP PO SCH (21:00)
[2017-10-12] MEDS ORDERED: TERAZOSIN HCL 1 MG CAP PO SCH (21:00)
[2017-10-12] MEDS ORDERED: APIXABAN 5 MG TABLET PO SCH (21:00)
[2017-10-12] MEDS ORDERED: BUDESONIDE-FORMOTEROL 80/4.5 MCG INHALER INH SCH (21:00)
[2017-10-12] MEDS ORDERED: ATORVASTATIN 80 MG TAB PO SCH (21:00)
--- NOTE | 2017-10-13 00:47 | EKG ---
Date Performed: 10/12/2017 Time Performed: 11:23:26 PTAGE: 72 years EKG: ATRIAL FIBRILLATION WITH SLOW VENTRICULAR RESPONSE VS REGULAR UNCERTAIN RHYTHM ABNORMAL RHY THM ECG PREVIOUS TRACING : 10/12/2017 11.09 Since the prior tracing, previously Sinus rhythm DOCTOR: Estiven Díaz Interpretating Date/Time 10/13/2017 00:46:15
[2017-10-13] MEDS ORDERED: FOLIC ACID 1 MG TAB PO SCH (09:00)
[2017-10-13] MEDS ORDERED: ASPIRIN 325 MG TAB PO SCH (09:00)
--- NOTE | 2017-10-13 10:17 | TR ---
Date Performed: 10/12/2017 Time Performed: 18:56:14 DOCTOR: Tee Frias DRUG LIST: CLINICAL HISTORY: REASON FOR TEST: CHEST PAIN REASON FOR ENDING: OBSERVATION: CONCLUSION: Lexiscan stress test was performed under standard four minute protocol. Radionuclide was injected one minute prior to ending the test. No electrocardiographic abormalities were present to suggest ischemia. Nuclear imaging and interpretation are pending. COMMENTS:
--- NOTE | 2017-10-13 17:31 | EKG ---
Date Performed: 10/12/2017 Time Performed: 14:31:44 PTAGE: 72 years EKG: PROBABLE JUNCTIONAL RHYTHM ABNORMAL RHYTHM ECG PREVIOUS TRACING : 10/12/2017 11.23 Since the prior tracing, there has been no significant florez DOCTOR: Estiven Díaz Interpretating Date/Time 10/13/2017 17:29:44
== END 2017-10-12 21:13 | disposition home or self-care (01) ==
LOC: NEPE 10:59 → NEDA 12:42 → NEPFCDU 14:36
PROVIDERS: ADMIT Internal Medicine Interventional Cardiology; ATTEND Internal Medicine Interventional Cardiology
DX: I49.5 Sick sinus syndrome (principal); R07.89 Other chest pain; R00.1 Bradycardia, unspecified; R06.00 Dyspnea, unspecified; R42 Dizziness and giddiness; R11.0 Nausea; R06.02 Shortness of breath; I20.9 Angina pectoris, unspecified; I11.0 Hypertensive heart disease with heart failure; I50.9 Heart failure, unspecified; E11.9 Type 2 diabetes mellitus without complications; E78.00 Pure hypercholesterolemia, unspecified; I48.0 Paroxysmal atrial fibrillation; J44.9 Chronic obstructive pulmonary disease, unspecified; M06.9 Rheumatoid arthritis, unspecified; N40.0 Benign prostatic hyperplasia without lower urinary tract symptoms; Z79.01 Long term (current) use of anticoagulants; Z87.891 Personal history of nicotine dependence; Z86.73 Personal history of transient ischemic attack (TIA), and cerebral infarction without residual deficits; Z79.899 Other long term (current) drug therapy; Z79.84 Long term (current) use of oral hypoglycemic drugs
CPT/HCPCS: 71045; 78452; 80053; 82550; 82948; 83690; 83735; 83880; 84484; 85025; 85610; 85730; 93005; 93017; 99285; A9502; G0378; J2785

== ENCOUNTER 2017-10-28 02:16 | Emergency (ER) | payer OTHER ==
[~2017-10-28] VITALS: Ht 167.6 cm; Wt 88.0 kg
[~2017-10-28 02:16] MED LIST changes: +CARD180C5 PO; -DILT120C50 PO; -METH2.5T PO
[2017-10-28 02:17] VITALS: BP 191/79; PULSE 91; RESP 20; TEMP 98; O2SAT 99
[2017-10-28] MEDS ORDERED: COLCHICINE 0.6 MG TAB PO ONE (02:45)
[2017-10-28] MEDS ORDERED: traMADol HCL 50 MG TAB PO ONE (02:45)
[2017-10-28] MEDS ORDERED: TRAM50 PO (02:49)
[2017-10-28] MEDS ORDERED: COLC1CAP3 PO (02:49)
--- NOTE | 2017-10-28 02:49 | PD ---
HPI . Acute pain Chief Complaint: Pain: Acute or Chronic Time Seen by Provider: 02:25 Travel History International Travel<30 days: No Contact w/Intl Traveler<30days: No Traveled to known affect area: No History of Present Illness HPI 72-year-old male with a history of rheumatoid arthritis, notes flare of same. Patient has been taking methotrexate for the past several years, first orally and now gets frequent injections, states that is not working any longer. Patient notes severe pain in his left wrist with associated swelling, patient cannot sleep tonight secondary to the pain. Patient denies any recent trauma, denies any fever chills sweats, does note some mild tingling paresthesias in his fingers distally of his left hand. PFSH Past Medical History Hx Anticoagulant Therapy: Yes Arthritis: Yes (RA) Asthma: Yes Blood Disorders: No Heart Rhythm Problems: Yes Cardiac Catheterization: No Cardiovascular Problems: Yes High Cholesterol: Yes Chemotherapy: No Congestive Heart Failure: Yes COPD: Yes Cerebrovascular Accident: Yes (TIA) Coronary Artery Disease: No Diabetes: Yes Patient Takes Glucophage: Yes Diminished Hearing: No Endocrine: No Genitourinary: Yes (ENLARGED PROSTATE) Heparin Induced Thrombocytopen: No Hypertension: Yes Immune Disorder: No Implanted Vascular Access Dvce: No Musculoskeletal: No Neurologic: Yes (TIA) Psychiatric: No Reproductive: No Respiratory: Yes Immunizations Current: Yes Radiation Therapy: No Past Surgical History Coronary Artery Bypass Graft: No Eye Surgery: Yes (BILAT CATARACT/LENS IMPLANT SURGERY) Other Surgery: Yes (CATARACTS AND LENS IMPLANTS) Family History Family Myocardial Infarction: Yes Social History Alcohol Use: No Tobacco Use: No (QUIT 09/18) Substance Use: No Allergies-Medications (Allergen,Severity, Reaction): Coded Allergies: No Known Allergies (Verified Adverse Reaction, Unknown, 10/28/17) Reported Meds & Prescriptions Reported Meds & Active Scripts Active Lisinopril 10 Mg Tab 10 Mg PO DAILY Vitamin D2 (Ergocalciferol) 2,000 Unit Tab 2,000 Units PO DAILY Eliquis (Apixaban) 5 Mg Tab 5 Mg PO BID Atorvastatin (Atorvastatin Calcium) 80 Mg Tab 80 Mg PO HS Reported Symbicort Inh (Budesonide/Formoterol Fumarate) 80-4.5 Mcg/Act Aero 2 Puff INH Q12HR Cardizem CD 24 HR (Diltiazem CD 24 HR) 180 Mg Caper 180 Mg PO BID Tamsulosin (Tamsulosin HCl) 0.4 Mg Cap 0.4 Mg PO HS Bisoprolol (Bisoprolol Fumarate) 5 Mg Tab 2.5 Mg PO DAILY Diclo Gel Topical (Diclofenac Sodium) 1% Gel 1 Applic TOPICAL QID Cyanocobalamin Inj (Cyanocobalamin) 1,000 Mcg/Ml Inj 1,000 Mcg IM Q30D Folic Acid 1 Mg Tablet 1 Mg PO DAILY Albuterol Neb (Albuterol Sulfate) 0.63 Mg/3 Ml Neb 0.63 Mg NEB QID NEB PRN Metformin (Metformin HCl) 1,000 Mg Tab 1,000 Mg PO BIDPC With meals Symbicort Inh (Budesonide/Formoterol Fumarate) Unknown Strength Aero 2 Puff INH Q12HR Terazosin (Terazosin HCl) 1 Mg Cap 1 Mg PO HS Narrative Medication Allergies and medications reviewed Review of Systems Except as stated in HPI: all other systems reviewed are Neg General / Constitutional: No: Fever Eyes: No: Visual changes HENT: No: Headaches Cardiovascular: No: Chest Pain or Discomfort Respiratory: No: Shortness of Breath Gastrointestinal: No: Abdominal Pain Genitourinary: No: Dysuria Musculoskeletal: Positive: Edema, Pain, No: Weakness, Cramping Skin: No Rash Neurologic: Positive: Paresthesia, No: Weakness, Sensory Disturbance Psychiatric: No: Depression Endocrine: No: Polydipsia Hematologic/Lymphatic: No: Easy Bruising Physical Exam Narrative GENERAL: Awake and alert oriented 3 no acute distress. Vital signs afebrile normal and stable SKIN: Warm and dry. Color is normal diaphoresis cyanosis or pallor HEAD: Atraumatic. Normocephalic. EYES: Pupils equal and round. No scleral icterus. No injection or drainage. ENT: No nasal bleeding or discharge. Mucous membranes pink and moist. NECK: Trachea midline. No JVD. Supple nontender full range of motion CARDIOVASCULAR: Regular rate and rhythm. S1-S2 no murmurs rubs gallops RESPIRATORY: No accessory muscle use. Clear to auscultation. Breath sounds equal bilaterally. GASTROINTESTINAL: Abdomen soft, non-tender, nondistended. Hepatic and splenic margins not palpable. MUSCULOSKELETAL: Left wrist generally edematous, tender throughout, full range of motion with pain. Patient has paresthesias distal fingers but positive sensation positive cap refill. Right wrist/hand normal. NEUROLOGICAL: Awake and alert. No obvious cranial nerve deficits. Motor grossly within normal limits. Five out of 5 muscle strength in the arms and legs. Normal speech. PSYCHIATRIC: Appropriate mood and affect; insight and judgment normal. Data Data Last Documented VS Vital Signs Date Time Temp Pulse Resp B/P (MAP) Pulse Ox O2 Delivery O2 Flow Rate FiO2 10/28/17 02:17 98.0 91 20 191/79 (116) 99 Room Air Orders Orders Colchicine (Colchicine) (10/28/17 02:45) Tramadol (Ultram) (10/28/17 02:45) [facility] Medical Decision Making Medical Screen Exam Complete: Yes Emergency Medical Condition: Yes Medical Record Reviewed: Yes Differential Diagnosis Rheumatoid arthritis, gout, wrist pain, carpal tunnel syndrome Narrative Course Patient offered splint, declined. Patient has diffuse tenderness and edema throughout wrist, possible gout. Utilize anti-inflammatory properties of colchicine, patient started on 0.6 mg p.o. with Ultram 50 mg p.o. Encouraged to follow-up with his machine feeder today Diagnosis Primary Impression: Rheumatoid arthritis flare Patient Instructions: General Instructions, Rheumatoid Arthritis (ED) Additional Instructions: Colchicine 0.6 mg twice daily for inflammation/pain. Ultram 50 mg every 8 hours as needed for pain. Follow-up with the machine feeder today. Return for worsening Scripts Tramadol (Ultram) 50 Mg Tab 50 MG PO Q8H Y for PAIN, #20 TAB 0 Refills Prov: Fredi Delgadillo MD 10/28/17 Colchicine (Colchicine) 0.6 Mg Cap 0.6 MG PO BID for Gout, #10 CAP 0 Refills Prov: Fredi Delgadillo MD 10/28/17 Disposition: 01 DISCHARGE HOME Condition: Stable Fredi Delgadillo MD Oct 28, 2017 02:49
== END 2017-10-28 03:23 | disposition home or self-care (01) ==
LOC: NEPC 02:16
DX: M06.9 Rheumatoid arthritis, unspecified (principal); I11.0 Hypertensive heart disease with heart failure; I50.9 Heart failure, unspecified; E78.00 Pure hypercholesterolemia, unspecified; E11.9 Type 2 diabetes mellitus without complications; J44.9 Chronic obstructive pulmonary disease, unspecified; Z86.73 Personal history of transient ischemic attack (TIA), and cerebral infarction without residual deficits; Z87.891 Personal history of nicotine dependence; Z79.01 Long term (current) use of anticoagulants; Z79.84 Long term (current) use of oral hypoglycemic drugs; Z79.899 Other long term (current) drug therapy
CPT/HCPCS: 99283

== ENCOUNTER 2017-12-09 21:17 | Emergency (ER) | payer OTHER ==
[~2017-12-09] VITALS: Ht 167.6 cm; Wt 90.0 kg
[~2017-12-09 21:17] MED LIST changes: +COLC1CAP3 PO; +TRAM50 PO
[2017-12-09 21:49] VITALS: BP 196/86; PULSE 90; RESP 18; TEMP 98.6; O2SAT 97
[2017-12-09] MEDS ORDERED: PROCHLORPERAZINE INJ 10 MG/2 ML VIAL IV PUSH ONE (22:45)
[2017-12-09] MEDS ORDERED: diphenhydrAMINE HCL 50 MG/ML VIAL IV PUSH ONE (22:45)
[2017-12-09] MEDS ORDERED: ACETAMINOPHEN 325 MG TAB PO ONE (22:45)
[2017-12-09 23:01] LABS: AUTOMATED NEUTROPHIL # 4.6 TH/MM3 (1.8-7.7); BASOPHIL % 0.4 % (0.0-2.0); EOSINOPHIL # 0.1 TH/MM3 (0-0.4); EOSINOPHIL % 1.8 % (0.0-4.0); HEMATOCRIT 35.9 % (39.0-51.0); HEMOGLOBIN 11.7 GM/DL (13.0-17.0); LYMPH % 17.5 % (9.0-44.0); LYMPHOCYTE # 1.1 TH/MM3 (1.0-4.8); MEAN CELL VOLUME 90.1 FL (80.0-100.0); MEAN CORPUSCULAR HEMOGLOBIN 29.3 PG (27.0-34.0); MEAN CORPUSCULAR HGB CONC 32.5 % (32.0-36.0); MEAN PLATELET VOLUME 7.7 FL (7.0-11.0); MONO % 8.3 % (0.0-8.0); MONOCYTE # 0.5 TH/MM3 (0-0.9); PLATELET COUNT 310 TH/MM3 (150-450); RED BLOOD COUNT 3.98 MIL/MM3 (4.50-5.90); RED CELL DISTRIBUTION WIDTH 18.1 % (11.6-17.2); WHITE BLOOD COUNT 6.3 TH/MM3 (4.0-11.0)
[2017-12-09 23:24] LABS: ALBUMIN 3.5 GM/DL (3.4-5.0); AST (GOT) 13 U/L (15-37); BICARBONATE 26.3 MEQ/L (21.0-32.0); BLOOD UREA NITROGEN 22 MG/DL (7-18); CALCIUM 9.5 MG/DL (8.5-10.1); CHLORIDE 109 MEQ/L (98-107); CREATININE 1.11 MG/DL (0.60-1.30); GLOMERULAR FILTRATION RATE 65 ML/MIN (>89); GLUCOSE,RANDOM 117 MG/DL (74-106); SODIUM (NA) 144 MEQ/L (136-145)
[2017-12-09 23:27] LABS: ALKALINE PHOSPHATASE 85 U/L (45-117); ALT (GPT) 19 U/L (12-78); TOTAL BILIRUBIN ADULT 0.2 MG/DL (0.2-1.0); TOTAL PROTEIN 7.5 GM/DL (6.4-8.2)
--- NOTE | 2017-12-10 00:22 | RADRPT ---
EXAM DATE/TIME: 12/09/2017 23:56 [facility] COMPARISON: CT BRAIN W/O CONTRAST, August 08, 2017, 7:41. INDICATIONS : Cephalgia. RADIATION DOSE: 56.35 CTDIvol (mGy) MEDICAL HISTORY : Cardiovascular disease. Hypertension. SURGICAL HISTORY : None. ENCOUNTER: Initial ACUITY: 1 day PAIN SCALE: 4/10 LOCATION: Left cranial TECHNIQUE: Multiple contiguous axial images were obtained of the head. Using automated exposure control and adj ustment of the mA and/or kV according to patient size, radiation dose was kept as low as reasonably a chievable to obtain optimal diagnostic quality images. DICOM format image data is available electro nically for review and comparison. FINDINGS: CEREBRUM: The ventricles are normal for age. There is low-density throughout the white matter. 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 No evidence of midline shift, mass lesion, hemorrhage or acute infarction. No ex tra-axial fluid collections are seen. POSTERIOR FOSSA: The cerebellum and brainstem are intact. The 4th ventricle is midline. The cerebellopontine angle i s unremarkable. EXTRACRANIAL: The visualized portion of the orbits is intact. SKULL: The calvaria is intact. No evidence of skull fracture. CONCLUSION: No acute intracranial abnormality. No change from previous study. Alex Vasquez MD on December 10, 2017 at 0:20 Board Certified Radiologist. This report was verified electronically.
--- NOTE | 2017-12-10 00:59 | PD ---
HPI Chief Complaint: Headache Time Seen by Provider: 22:24 Travel History International Travel<30 days: No Contact w/Intl Traveler<30days: No Traveled to known affect area: No History of Present Illness HPI Patient is a 72-year-old male complaining of pain to the left side of his head. He says it started 4 hours ago. He did not take anything for the pain. He denies blurred vision, dizziness. He says he has some nausea. He denies fever chills. Denies any injury. He says the side of his head hurts to touch. He denies any chest pain or shortness of breath. Severity is mild to moderate. PFSH Past Medical History Hx Anticoagulant Therapy: Yes Arthritis: Yes (RA) Asthma: Yes Blood Disorders: No Heart Rhythm Problems: Yes Cardiac Catheterization: No Cardiovascular Problems: Yes High Cholesterol: Yes Chemotherapy: No Congestive Heart Failure: Yes COPD: Yes Cerebrovascular Accident: Yes (TIA) Coronary Artery Disease: No Diabetes: Yes Patient Takes Glucophage: Yes Diminished Hearing: No Endocrine: No Genitourinary: Yes (ENLARGED PROSTATE) Heparin Induced Thrombocytopen: No Hypertension: Yes Immune Disorder: No Implanted Vascular Access Dvce: No Musculoskeletal: No Neurologic: Yes (TIA) Psychiatric: No Reproductive: No Respiratory: Yes Immunizations Current: Yes Radiation Therapy: No Tetanus Vaccination: < 5 Years Influenza Vaccination: Yes Past Surgical History Coronary Artery Bypass Graft: No Eye Surgery: Yes (BILAT CATARACT/LENS IMPLANT SURGERY) Other Surgery: Yes (CATARACTS AND LENS IMPLANTS) Family History Family Myocardial Infarction: Yes Social History Alcohol Use: No Tobacco Use: No (QUIT 09/18) Substance Use: No Allergies-Medications (Allergen,Severity, Reaction): Coded Allergies: No Known Allergies (Verified Adverse Reaction, Unknown, 10/28/17) Reported Meds & Prescriptions Reported Meds & Active Scripts Active Lisinopril 10 Mg Tab 10 Mg PO DAILY Vitamin D2 (Ergocalciferol) 2,000 Unit Tab 2,000 Units PO DAILY Eliquis (Apixaban) 5 Mg Tab 5 Mg PO BID Atorvastatin (Atorvastatin Calcium) 80 Mg Tab 80 Mg PO HS Reported Symbicort Inh (Budesonide/Formoterol Fumarate) 80-4.5 Mcg/Act Aero 2 Puff INH Q12HR Cardizem CD 24 HR (Diltiazem CD 24 HR) 180 Mg Caper 180 Mg PO BID Bisoprolol (Bisoprolol Fumarate) 5 Mg Tab 2.5 Mg PO DAILY Diclo Gel Topical (Diclofenac Sodium) 1% Gel 1 Applic TOPICAL QID Cyanocobalamin Inj (Cyanocobalamin) 1,000 Mcg/Ml Inj 1,000 Mcg IM Q30D Folic Acid 1 Mg Tablet 1 Mg PO DAILY Albuterol Neb (Albuterol Sulfate) 0.63 Mg/3 Ml Neb 0.63 Mg NEB QID NEB PRN Metformin (Metformin HCl) 1,000 Mg Tab 1,000 Mg PO BIDPC With meals Symbicort Inh (Budesonide/Formoterol Fumarate) Unknown Strength Aero 2 Puff INH Q12HR Terazosin (Terazosin HCl) 1 Mg Cap 1 Mg PO HS Review of Systems Except as stated in HPI: all other systems reviewed are Neg General / Constitutional: No: Fever, Chills Eyes: No: Blurred Vision HENT: Positive: Headaches Cardiovascular: No: Chest Pain or Discomfort Respiratory: No: Shortness of Breath Gastrointestinal: Positive: Nausea, No: Vomiting, Abdominal Pain Musculoskeletal: No: Myalgias, Edema Skin: No Change in Pigmentation Neurologic: No: Weakness, Syncope Physical Exam Narrative GENERAL: Awake and alert, in no acute distress. SKIN: Focused skin assessment warm/dry. No wounds or signs of infection. HEAD: Atraumatic. Normocephalic. EYES: Pupils equal and round. No scleral icterus. Extraocular movements intact. ENT: Mucous membranes pink and moist. NECK: Trachea midline. No JVD. CARDIOVASCULAR: Regular rate and rhythm. No murmur appreciated. RESPIRATORY: No accessory muscle use. Clear to auscultation. Breath sounds equal bilaterally. GASTROINTESTINAL: Abdomen soft, non-tender, nondistended. MUSCULOSKELETAL: No obvious deformities. No clubbing. No cyanosis. No edema. NEUROLOGICAL: Awake and alert. No obvious cranial nerve deficits. Motor grossly within normal limits. Normal speech. PSYCHIATRIC: Appropriate mood and affect; insight and judgment normal. Data Data Last Documented VS Vital Signs Date Time Temp Pulse Resp B/P (MAP) Pulse Ox O2 Delivery O2 Flow Rate FiO2 12/09/17 21:49 98.6 90 18 196/86 (122) 97 Room Air Orders Orders Iv Access Insert/Monitor (12/09/17 22:35) Complete Blood Count With Diff (12/09/17 22:35) Comprehensive Metabolic Panel (12/09/17 22:35) Ct Brain W/O Iv Contrast(Rout) (12/09/17 ) Acetaminophen (Tylenol) (12/09/17 22:45) Prochlorperazine Inj (Compazine Inj) (12/09/17 22:45) Diphenhydramine Inj (Benadryl Inj) (12/09/17 22:45) Labs Laboratory Tests Test 12/09/17 22:43 White Blood Count 6.3 TH/MM3 Red Blood Count 3.98 MIL/MM3 Hemoglobin 11.7 GM/DL Hematocrit 35.9 % Mean Corpuscular Volume 90.1 FL Mean Corpuscular Hemoglobin 29.3 PG Mean Corpuscular Hemoglobin Concent 32.5 % Red Cell Distribution Width 18.1 % Platelet Count 310 TH/MM3 Mean Platelet Volume 7.7 FL Neutrophils (%) (Auto) 72.0 % Lymphocytes (%) (Auto) 17.5 % Monocytes (%) (Auto) 8.3 % Eosinophils (%) (Auto) 1.8 % Basophils (%) (Auto) 0.4 % Neutrophils # (Auto) 4.6 TH/MM3 Lymphocytes # (Auto) 1.1 TH/MM3 Monocytes # (Auto) 0.5 TH/MM3 Eosinophils # (Auto) 0.1 TH/MM3 Basophils # (Auto) 0.0 TH/MM3 CBC Comment DIFF FINAL Differential Comment Blood Urea Nitrogen 22 MG/DL Creatinine 1.11 MG/DL Random Glucose 117 MG/DL Total Protein 7.5 GM/DL Albumin 3.5 GM/DL Calcium Level 9.5 MG/DL Alkaline Phosphatase 85 U/L Aspartate Amino Transf (AST/SGOT) 13 U/L Alanine Aminotransferase (ALT/SGPT) 19 U/L Total Bilirubin 0.2 MG/DL Sodium Level 144 MEQ/L Potassium Level 4.7 MEQ/L Chloride Level 109 MEQ/L Carbon Dioxide Level 26.3 MEQ/L Anion Gap 9 MEQ/L Estimat Glomerular Filtration Rate 65 ML/MIN [facility] Medical Decision Making Medical Screen Exam Complete: Yes Emergency Medical Condition: Yes Medical Record Reviewed: Yes Differential Diagnosis Tension headache versus dehydration versus migraine versus electrolyte abnormality Narrative Course Patient is a 72-year-old male who comes in due to headache. Exam shows no neurologic abnormalities. IV established, labs sent. Labs show no acute abnormalities. Patient given Compazine and Benadryl Tylenol. CT head performed shows no acute abnormalities. Patient does report some improvement of the symptoms. He is advised to take Tylenol at home as needed for pain. Advised follow-up with his doctors. Advised to return to the ED as needed for any worsening symptoms. Patient is comfortable discharge at this time. Diagnosis Primary Impression: Headache Qualified Codes: R51 - Headache Patient Instructions: Acute Headache (ED), General Instructions Additional Instructions: Take Tylenol as needed for pain. Follow-up with your doctors. Return to the ED as needed for any worsening symptoms. Disposition: 01 DISCHARGE HOME Condition: Stable Tish Lopez MD Dec 10, 2017 00:59
== END 2017-12-10 01:34 | disposition home or self-care (01) ==
LOC: NEPE 21:17
DX: R51 Headache (principal); R11.0 Nausea; I11.0 Hypertensive heart disease with heart failure; I50.9 Heart failure, unspecified; E78.00 Pure hypercholesterolemia, unspecified; E11.9 Type 2 diabetes mellitus without complications; J44.9 Chronic obstructive pulmonary disease, unspecified; M06.9 Rheumatoid arthritis, unspecified; Z86.73 Personal history of transient ischemic attack (TIA), and cerebral infarction without residual deficits; Z87.891 Personal history of nicotine dependence; Z79.84 Long term (current) use of oral hypoglycemic drugs; Z79.899 Other long term (current) drug therapy
CPT/HCPCS: 70450; 80053; 85025; 96374; 96375; 99284; J0780; J1200